=== PATIENT | female | born 1980 | race Caucasian/White ===

== ENCOUNTER 2025-04-05 18:03 | Emergency (ER) | payer OTHER, SELFPAY ==
--- OUTSIDE RECORDS SUMMARY | 2025-03-02 13:45 | XMS_ITS | Encounter Summary ---
Author Organization [facility] Address [address] [place] [address] Care Team Providers Care Web Operations Administrator Name Role Phone Marco Antonio Figueroa MD Unavailable Russ Gaitan DPM Unavailable [phone] Baldev Bell MD Unavailable [phone] Liz Hernandez DC Unavailable [phone] Lary Delvalle DO Primary Care Provider [phone] Nicolasa Hackett PA-C Unavailable [phone] Destiney Adam DO Unavailable Reason for Referral * Consult & Treatment (Routine) - Pending Review Specialty Diagnoses / Procedures Referred By Contkareem t Referred To Contact Diagnoses Acute pain of left knee Procedures DRAIN OR INJECT LARGE JOINT OR BURSA WOUT ULTRASOUND GUIDE Parmjit Kelly DO [address] [facility] [place] [address] Phone: tel: fax: Referral ID Status Reason Start Date Expiration Date V isits Requested Visits Authorized [id number] Pending Review 03/02/2025 03/02/2026 1 1 Reason for Visit * Reason Comments Surgical Followup Medial root repair. DOS 08/12 6.5 months out, still having a hard time with stairs. Average pain 3/10. Taking Aleve as needed. Encounter Details Date Type Department Care Team (Late st Contact Info) Description 03/02/2025 1:45 PM CDT Office Visit [facility] [address] [place] [phone] Parmjit Kelly, DO [address] [place] [address] Acute pain of left knee (Primary Dx); S/P arthroscopy of knee Social History Tobacco Use Types Packs/Day Years Used Date Smoking Tobacco: Never Passive Smoke Exposure: Never Smokeless Tobacco: Never Tobacco Cessation:Counseling Given: Not Answered Alcohol Use Standard Drinks/Week Comments Not Currently 0 (1 standard drink = 0.6 oz pur e alcohol) [facility] Utilities Answer Date Recorded In the past 12 months has [employer], gas, oil, or water [employer] threatened to shut off services in your home? No 12/14/2024 PHQ-2 Answer Date Recorded Initial depression screening score: 3 12/27/2024 Social Connections Answer Date Recorded How often do you see or talk to people that you care about and feel close to? (For example: talking to friends on the phone, visiting friends or family, going to judaism or club meetings) 5 or more times a week 06/20/2024 Alcohol Use Answer Date Recorded Audit C Total Score 1 12/12/2024 Financial Resource Strain Answer Date R ecorded In the past year, have you o r any family members you live with been unable to get any of the following when it was really needed? Check all that apply. None 06/20/2024 Food Insecurity Answer Date Recorded Within the past 12 months, y ou worried that your food would run out before you got money to buy more. Never true 12/14/2024 Within the past 12 months, t he food you bought just didn't last and you didn't have money to get more. Never true 12/14/2024 Inadequate Housing Answer Date Recorded What is your living situatio n today? I have a steady place to live 12/14/2024 Do you have problems with an y of the following? None of the above 12/14/2024 Interpersonal Safety Answer Date Record ed How often does anyone, himanshu lieberman family and friends, physically hurt you? Never 01/22/2025 How often does anyone, himanshu lieberman family and friends, insult or talk down to you? Never 01/22/2025 How often does anyone, himanshu lieberman family and friends, threaten you with harm? Never 01/22/2025 How often does anyone, himanshu lieberman family and friends, scream or curse at you? Never 01/22/2025 Transportation Needs Answer Date Record ed In the past 12 months, has l ack of reliable transportation kept you from medical appointments, meetings, work or from getting things needed for daily living? No 12/14/2024 Sexually Active Control Partners Comments Not Currently None Female Comments No Sex and Gender Information Value Date Recorded Sex Assigned at Not on file Legal Sex Female 1:30 PM CDT Gender Identity Not on file Sexual Orientation Not on file documented as of this encounter Last Filed Vital Signs Vital Sign Reading Time Taken Comments Blood Pressure - - Pulse - - Temperature 36.3 C (97.3 F) 03/02/2025 1:49 PM CDT Respiratory Rate - - Oxygen Saturation - - Inhaled Oxygen Concentration - - Weight 108.9 kg (240 lb) 03/02/2025 1:49 PM CDT Height 167.6 cm (5' 6) 03/02/2025 1:49 PM CDT Body Mass Index 38.74 03/02/2025 1:49 PM CDT documented in this encounter Functional Status * RETIRED Are you deaf or do you have serious difficulty hearing? Answer Date of Assessment Author No 06/12/2022 11:47 AM Bethany Morrison RN * RETIRED Are you blind or do you have serious difficulty seeing, even when wearing glasses? Answer Date of Assessment Author No 06/12/2022 11:47 AM Bethany Morrison RN * Do you have serious difficulty walking or climbing stairs? Answer Date of Assessment Author Yes 12/12/2024 6:41 AM CDT Susan Thomson RN * Do you have difficulty dressing or bathing? Answer Date of Assessment Author No 12/12/2024 6:41 AM CDT Susan Thomson RN * Because of a physical, mental, or emotional condition, do you have difficulty doing errands alone? Answer Date of Assessment Author No 12/12/2024 6:41 AM CDT Susan Thomson RN documented as of this encounter Mental Status * Because of a physical, mental, or emotional condition, do you have serious difficulty concentrating, remembering or making decisions? Answer Entry Date Author No 12/12/2024 6:41 AM CDT Susan Thomson RN documented in this encounter Patient Instructions * Patient Instructions* Kim Aiken - 03/02/2025 1:55 PM CDT INJECTION AFTERCARE INSTRUCTIONS: For any discomfort after today's injection, you can apply ice for 20 minutes. You can take over the counter analgesics as discussed. A small bruise or tenderness at the injection site can be normal for few days. Observe the injection site for swelling, redness, warmth, or signs of infection. If noted, please call [facility] at [phone]. For next few days - Avoid extra activity and aggressive exercise for the next few days. You may shower and bathe after the injection but avoid hot tubs and hensley water. Monitor your short and long-term relief with today's injection. documented in this encounter Progress Notes * Parmjit Kelly DO - 03/02/2025 1:45 PM CDT ORTHOPEDIC SURGERY Parmjit Kelly DO PRIMARY CARE PHYSICIAN: Lary Delvalle DO CHIEF COMPLAINT: Chief Complaint Patient presents with ??? Surgical Followup Medial root repair. DOS 08/12 6.5 months out, still having a hard time with stairs. Average pain 3/10. Taking Aleve as needed. HISTORY OF PRESENT ILLNESS: Ms. Haley is a 44 year old female who presents today for Surgical Followup (Medial root repair. DOS 08/12 6.5 months out, still having a hard time with stairs. Averagepain 3/10. Taking Aleve as needed. ) . REVIEW OF SYSTEMS: Constitutional: Patient denies fever, chills, tiredness or malaise. Respiratory: Denies cough or shortness of breath. Denies history of problems with intubation or anesthesia. Cardiovascular: Denies chest pain or edema. Musculoskeletal: Negative except for HPI. Past Medical History: Diagnosis Date ??? Allergy ??? Anxiety ??? Asthma (CMD) 2000 ??? Depressive disorder ??? Diabetes mellitus (CMD) ??? Hearing loss ??? Lumbar herniated disc ??? Migraines ??? Neuromuscular disorder (CMD) ??? Osteogenesis imperfecta type 4 (CMD) ??? Osteogenesis imperfecta type IV (CMD) ??? Osteoporosis 1981 ??? Sleep apnea 2018 ??? Vertigo Social History Socioeconomic History ??? Marital status: /Civil Union Spouse name: Not on file ??? Number of children: Not on file ??? Years of education: Not on file ??? Highest education level: Not on file Occupational History ??? Not on file Tobacco Use ??? Smoking status: Never Passive exposure: Never ??? Smokeless tobacco: Never Vaping Use ??? Vaping status: never used Substance and Sexual Activity ??? Alcohol use: Not Currently ??? Drug use: Never ??? Sexual activity: Not Currently Partners: Female control/protection: None Other Topics Concern ??? Not on file Social History Narrative ??? Not on file Social Drivers of Health Financial Resource Strain: Low Risk (06/20/2024) Financial Resource Strain ??? Unable to Get: None Recent Concern: Financial Resource Strain - Medium Risk (06/06/2024) Received from [facility] Overall Financial Resource Strain (CARDIA) ??? Difficulty of Paying Living Expenses: Somewhat hard Food Insecurity: Low Risk (12/14/2024) Food Insecurity ??? Worried about Food: Never true ??? Food is Gone: Never true Transportation Needs: Not At Risk (12/14/2024) Transportation Needs ??? Lack of Reliable Transportation: No Physical Activity: Insufficiently Active (06/06/2024) Received from [facility] Exercise Vital Sign ??? Days of Exercise per Week: 2 days ??? Minutes of Exercise per Session: 20 min Stress: Stress Concern Present (06/06/2024) Received from [facility] Occup[facility] - Occupational Stress Questionnaire ??? Feeling of Stress : Rather much Social Connections: Low Risk (06/20/2024) Social Connections ??? Social Connectivity: 5 or more times a week Feeling safe in your relationship: Low Risk (01/22/2025) Interpersonal Safety ??? How often physically hurt: Never ??? How often insulted or talked down to: Never ??? How often threatened with harm: Never ??? How often scream or curse at: Never Family History Problem Relation Age of Onset ??? Diabetes Mother ??? Heart disease Mother ??? Migraine Mother ??? Diabetes Father ??? Heart disease Father ??? Diabetes Maternal Grandmother ??? Heart disease Maternal Grandmother ??? Heart disease Maternal Grandfather ??? Cancer Paternal Grandmother ??? Cancer Paternal Grandfather lung cancer ??? Depression Mother ??? Early Father ??? Vision Loss Maternal Grandmother Macular Degeneration ??? Hearing Loss Maternal Grandfather Current Outpatient Medications Medication Sig ??? amitriptyline (ELAVIL) 25 MG tablet Take 1 tablet by mouth nightly. ??? ondansetron (ZOFRAN ODT) [address] 1 tablet onto the tongue every 6 hours. ??? amLODIPine (NORVASC) 5 MG tablet Take 1 tablet by mouth daily. ??? Aspirin 81 MG Cap Take 1 capsule by mouth daily. ??? atorvastatin (LIPITOR) 40 MG tablet Take 1 tablet by mouth nightly. ??? fluconazole (DIFLUCAN) 150 MG tablet One pill today and one in 3 days. #2 ??? prochlorperazine (COMPAZINE) [address] 1 suppository rectally every 12 hours as needed for Nausea. ??? predniSONE (DELTASONE) 20 MG tablet Take 1 tablet by mouth 2 times daily. (Patient not taking: Reported on 01/11/2025) ??? benzonatate (TESSALON PERLES) 200 MG capsule Take 1 capsule by mouth 3 times daily as needed for Cough. (Patient not taking: Reported on 01/11/2025) ??? MetFORMIN ER (GLUMETZA) 1000 MG modified release 24 hr tablet Take 1 tablet by mouth in the morning and 1 tablet in the evening. Take with meals. ??? Vitamin D, Ergocalciferol, 98130 units Cap Take 1 capsule by mouth 1 day a week. ??? lisinopril (ZESTRIL) 10 MG tablet Take 1 tablet daily around noon time. ??? ipratropium-albuterol (DUONEB) 0.5-2.5 (3) MG/3ML nebulizer solution Take 3 mLs by nebulizationevery 6 hours as needed for Wheezing. ??? fluticasone-salmeterol 250-50 MCG/ACT inhaler Inhale 1 puff into the lungs daily as needed (asthma). ??? gentamicin (GARAMYCIN) 0.3 % ophthalmic solution 2 drops affected eye(s) tid ??? albuterol 108 (90 Base) MCG/ACT inhaler Inhale 2 puffs into the lungs every 4 hours as needed for Shortness of Breath or Wheezing. ??? DULoxetine (CYMBALTA) 60 MG capsule Take 1 capsule by mouth in the morning and 1 capsule in theevening. ??? propRANolol (INDERAL) 10 MG tablet Take 1 tablet by mouth 2 times daily as needed (anxiety/panic). ??? propranolol (INDERAL LA) 120 MG 24 hr capsule Take 1 capsule by mouth nightly. ??? Insulin Pen Needle 31G X 5 MM Misc Use to inject insulin 1 time daily ??? empagliflozin (Jardiance) 10 MG tablet Take 1 tablet by mouth daily (before breakfast). ??? famotidine (PEPCID) 10 MG tablet Take 10 mg by mouth daily as needed (as needed). ??? Continuous Glucose Sensor (FreeStyle Obie 3 Plus Sensor) Misc Use as directed. Change every 14days. ??? ondansetron (ZOFRAN ODT) [address] 1 tablet onto the tongue every 6 hours as needed for Nausea. (Patient not taking: Reported on 01/11/2025) ??? lidocaine (LIDOCARE) 4 % patch Place 1 patch onto the skin daily. ??? ibuprofen (MOTRIN) 200 MG tablet Take 600-800 mg by mouth 2 times daily as needed for Pain. ??? Naphazoline-Pheniramine (VISINE OP) Place 1 drop into both eyes daily as needed (itchy, dry eye). ??? Continuous Glucose Sensor (FreeStyle Obie 2 Sensor) Misc Use to check blood sugars daily as directed. Change sensor every 14 days ??? insulin glargine 100 UNIT/ML pen-injector Inject 40 Units into the skin nightly. Prime 2 units before each dose. ??? rimegepant sulfate (Nurtec) 75 MG disintegrating tablet Take 1 tablet by mouth daily as needed for Migraine. Max 75 mg/24 hours. ??? fexofenadine (LAYNE) 180 MG tablet Take 180 mg by mouth daily. ??? fluticasone (FLONASE) 50 MCG/ACT nasal spray [place] 2 sprays in each nostril daily as needed (allergies). No current facility-administered medications for this visit. ALLERGIES: Allergen Reactions ??? Escitalopram ANAPHYLAXIS and RASH ??? Amoxicillin-Pot Clavulanate VOMITING and DIARRHEA ??? Sertraline Other (See Comments) ??? Cat Dander Other (See Comments) ??? Dog Dander Other (See Comments) ??? Seasonal Other (See Comments) PHYSICAL EXAMINATION: Visit Vitals Temp 97.3 ??F (36.3 ??C) (Temporal) Ht 5' 6 (1.676 m) Wt 108.9 kg (240 lb) LMP 12/25/2024 (Approximate) BMI 38.74 kg/m?? Examination of the left knee: Healed surgical incision. No cellulitis or drainage. Gross sensation intact distally. Palpable distal pulses. No subluxations or dislocations. Mild tenderness to palpation about the surgical site. Full range of motion of the surgical extremity. Weight bearing as tolerated. Quadriceps weakness. Medial jointline pain. Diagnosis: Status post Left knee arthroscopy medial meniscal root repair Quadriceps weakness Body mass index is 39.22 kg/m??. Obese (BMI 30-39 without a comorbid condition or 30-34 with a comorbid condition) Assessment: The patient is status post Left knee arthroscopy with medial meniscal root repair. The patient is having mild pain at this time. The incisions are healed well with no drainage and no signs or symptoms of infection. The patient was encouraged to work on range of motion. Weight bear as tolerated operative limb while wearing knee brace. A kenalog injection was given to the left knee at today's visit. If the injection does not provide intermodal dispatcher pain relief, we will repeat the MRI. Plan: -- Activity Modification--avoid excessive walking/impact activities. -- The patient was encouraged to work on range of motion, ice and elevation, and edema management. -- Patient advised to call with any questions or concerns. Toradol Injection Knee, left--the risks and benefits of a Toradol injection to the knee were explained to the patient. The patient expressed an understanding and wished to proceed with the injection.The knee was prepped with Betadine solution in the usual fashion. The injection site was then treated with ethyl chloride. A mixture of 2 cc of 1% lidocaine and 1 cc of toradol (30mg) was then injected into the knee. The signs and symptoms of an adverse reaction to the injection, including redness,swelling and other signs of infection were explained to the patient and instructions were given to call the office with any questions or concerns. All of the patient's questions were answered. On 03/02/2025, Kim Munoz scribed the services personally performed by Dr. Parmjit Kelly. Documentation recorded by the scribe accurately and completely reflects service(s) I personally performed and the decisions made by me. CC: Lary Delvalle DO 03/03/2025 9:23 AM documented in this encounter Plan of Treatment Upcoming Encounters Date Type Department Care Team (Late st Contact Info) Description 04/10/2025 8:15 AM CDT Lab Services [facility] - [facility] [address] [place] [address] [place] [address] 04/11/2025 11:20 AM CDT Office Visit Primary Care Virtual - Family Medicine [address] [place] [phone] [place] [address] [place] [address] 07/13/2025 2:45 PM OLIVER FILTER OPERATOR Office Visit [facility] [place] [address] [place] [id number] Jack Schuler DO [address] [place] [address] Scheduled Orders Name Type Priority Associated Diagnoses Orde r Schedule DRAIN OR INJECT LARGE JOINT OR BURSA WOUT ULTRASOUND GUIDE Procedures Routine Acute pain of left knee Ordered: 03/02/2025 documented as of this encounter Visit Diagnoses Diagnosis Acute pain of left knee- Primary S/P arthroscopy of knee Other postprocedural status documented in this encounter Administered Medications Inactive Administered Medications - up to 1 most recent administrations Medication Order MAR Action Action Date Dose Rate Site ketorolac (TORADOL) injection 30 mg 30 mg ONCE, Intra-articular, On Yelena 03/02/25 at 1415, For 1 dose, . * Protect from light *Indications:Acute pain of left knee Given 03/02/2025 2:01 PM CDT 30 mg Knee, Left documented in this encounter Orders Medications Ordered That Max ht Not Have Been Administered Count Last Ordered Date First Ordered Date ketorolac (TORADOL) injection 30 mg 1 03/02 documented in this encounter Additional Health Concerns Assessment Noted Time PHQ-9 Depression Total Score: 13 025 5:37 PM CDT A Body Mass Index follow-up plan has been documented for the patient 06/17/2023 10:39 AM OLIVER FILTER OPERATOR documented as of this encounter Care Teams Web Operations Administrator Relationship Specialty Start Date End Date Lary Delvalle DO [address] [facility] [address] [address] PCP - General Family Practice 09/06/24 Marco Antonio Figueroa MD [address] [place] [address] Referring Provider Neurology 04/22/22 Russ Gaitan DPM [address] [place] [address] Referring Provider Podiatry - Foot & Ankle Surgery 04/22/22 [place] [address] [place], [place] [id number] Referring Provider Orthopaedic Surgery- Adult Reconstructive Orthopaedic Surgery 04/22/22 [place] [address] [place] [address] Chiropractic 04/22/22 Nicolasa Hackett PA-C [facility] [id number] [place] [address] Referring Provider Physician Manager R D - Surgery 11/14/24 Destiney Adam DO [address] [facility] [place] [address] Orthopedic Surgery 11/14/24 documented as of this encounter
--- OUTSIDE RECORDS SUMMARY | 2025-03-02 14:15 | XMS_ITS | Encounter Summary ---
Author Organization [facility] Address [address] [place] [address] Care Team Providers Care Fried Cake Maker Name Role Phone Marco Antonio Figueroa MD Unavailable Russ Gaitan DPM Unavailable [phone] Baldev Bell MD Unavailable [phone] Liz Hernandez DC Unavailable [phone] Lary Delvalle DO Primary Care Provider [phone] Nicolasa Hackett PA-C Unavailable [phone] Destiney Adam DO Unavailable [phone] Encounter Details Date Type Department Care Team (Late st Contact Info) Description 03/02/2025 2:15 PM CDT Lab Services [facility] [place] [address] [address] Recurrent UTI (urinary tract infection) Social History Tobacco Use Types Packs/Day Years Used Date Smoking Tobacco: Never Passive Smoke Exposure: Never Smokeless Tobacco: Never Alcohol Use Standard Drinks/Week Comments Not Currently 0 (1 standard drink = 0.6 oz pur e alcohol) [facility] Utilities Answer Date Recorded In the past 12 months has e electric, gas, oil, or water company threatened to shut off services in your home? No 12/14/2024 PHQ-2 Answer Date Recorded Initial depression screening score: 3 12/27/2024 Social Connections Answer Date Recorded How often do you see or talk to people that you care about and feel close to? (For example: talking to friends on the phone, visiting friends or family, going to lutheran or club meetings) 5 or more times [...] on file documented as of this encounter Functional Status * RETIRED Are you deaf or do you have serious difficulty hearing? Answer Date of Assessment Author No 06/12/2022 11:47 AM Bethany Morrison RN * RETIRED Are you blind or do you have serious difficulty seeing, even when wearing glasses? Answer Date of Assessment Author No 06/12/2022 11:47 AM ACT TUTOR Bethany Ball RN * Do you have serious difficulty [...] Susan Thomson RN documented in this encounter Plan of Treatment Upcoming Encounters Date Type Department Care Team (Late st Contact Info) Description 04/10/2025 8:15 AM CDT Lab Services [facility] [place] [address] [place] [address] [place] [address] 04/11/2025 11:20 AM CDT [facility] [address] [place] [id number] [place] [address] [place] [address] 07/13/2025 2:45 PM ACT TUTOR Office Visit [facility] [address] [place] [phone] Jack Schuler DO [address] [place] [address] documented as of this encounter Procedures Procedure Name Priority Date/Time Associated Diagnosis Comments URINE, BACTERIAL CULTURE Routine 03/02/2025 2:16 PM CDT Recurrent UTI (urinary tract infection) documented in this encounter Results * (ABNORMAL) Urine, Bacterial Culture (03/02/2025 2:16 PM CDT) Urine, Bacterial Culture >100,000 CFU/mL Escherichia coli(A) DANIELLE 03/04/2025 5:05 PM CDT [facility] Urine URINE SPECIMEN OBTAINED BY CLEAN CATCH PROCEDURE / Unknown 03/02/2025 2:16 PM CDT 03/02/2025 2:16 PM CDT Narrative [facility] - 03/04/2025 5:05 PM CDT Testing on this culture has been completed. If additional testing is required, please contact [facility] Client Services within 48 hours. Organism Antibiotic Method Susceptibility Escherichia coli ESBL DANIELLE Negative ug/mL Escherichia coli Ampicillin DANIELLE 4 ug/mL: Susceptible Escherichia coli Ampicillin/Sulbactam DANIELLE <=2 ug/mL: Susceptible Escherichia coli Piperacillin/Tazobactam DANIELLE <=4 ug/mL: Susceptible Escherichia coli Cefazolin (Urine) DANIELLE <=1 ug/mL: Susceptible Comment:If susceptib le, cefazolin predicts activity for other oral cephalosporins (cefaclor, cefdinir, cefpodoxime, cefprozil, cefuroxime, cephalexin, and loracarbef) when used for uncomplicated UTIs due to E. coli, K. pneumo, and P. mirabilis. Escherichia coli Cefazolin DANIELLE <=1 ug/mL: Susceptible Comment:This cefazol in interpretation should be used when considering treatment for any infection other than an uncomplicated UTI. Escherichia coli Ceftriaxone DANIELLE <=0.25 ug/mL: Susceptible Escherichia coli Gentamicin DANIELLE <=1 ug/mL: Susceptible Escherichia coli Ciprofloxacin DANIELLE >=4 ug/mL: Resistant Escherichia coli Nitrofurantoin DANIELLE <=16 ug/mL: Susceptible Escherichia coli Trimethoprim/Sulfamethoxazole DANIELLE <=20 ug/mL: Susceptible us [facility] MICRO-GEN ORDERAB LES Final Result [place] [id number] [place] [id number] documented in this encounter Visit Diagnoses Diagnosis Recurrent UTI (urinary tract infection) Urinary tract infection, site not specified documented in this encounter Additional Health Concerns Assessment Noted Time PHQ-9 Depression Total Score: 13 025 5:37 PM CDT A Body Mass Index follow-up plan has been documented for the patient 06/17/2023 10:39 AM ACT TUTOR documented as of this encounter Care Teams Fried Cake Maker Relationship Specialty Start Date End Date Lary Delvalle DO [address] [place] [address] PCP - General Family Practice 09/06/24 Marco Antonio Figueroa MD [address] [place] [address] Referring Provider Neurology 04/22/22 Russ Gaitan DPM [address] [place] [address] Referring Provider Podiatry - Foot & Ankle Surgery 04/22/22 [place] [address] [place], [place] [id number] Referring Provider Orthopaedic Surgery- Adult Reconstructive Orthopaedic Surgery 04/22/22 [place] [address] [place], [place] [phone] Chiropractic 04/22/22 Nicolasa Hackett PA-C [facility] [id number] [place], [place] [phone] Referring Provider Physician Fleet Administrative Assistant - Surgery 11/14/24 Destiney Adam DO [address] [place] [address] Orthopedic Surgery 11/14/24 documented as of this encounter
--- OUTSIDE RECORDS SUMMARY | 2025-04-02 09:03 | XMS_ITS | Encounter Summary ---
Author Organization [facility] Address [address] [place] [address] Care Team Providers Care Cant Gang Sawyer Name Role Phone Marco Antonio Figueroa MD Unavailable Russ Gaitan DPM Unavailable [phone] Baldev Bell MD Unavailable [phone] Liz Hernandez DC Unavailable [phone] Lary Delvalle DO Primary Care Provider [phone] Nicolasa Hackett PA-C Unavailable [phone] Destiney Adam DO Unavailable [phone] Reason for Referral * Consult & Treatment (Routine) - Authorized Specialty Diagnoses / Procedures Referred By Contkareem t Referred To Contact Diagnoses Acute pain of right knee Hematoma of right lower leg Amrit Mercado MD [address] [place] [address] Phone: tel: fax: Referral ID Status Reason Start Date Expiration Date V isits Requested Visits Authorized [id number] Authorized 04/02/2025 04/02/2026 1 1 Question Answer service Consult Reason for Visit * Reason Comments Knee Pain Encounter Details Date Type Department Care Team ([facility] st Contact Info) Description 04/02/2025 9:03 AM CDT - 04/02/2025 12:09 PM CDT Emergency [facility] [place] [facility] [address] [place] [address] Amrit Mercado MD [address] [place] [address] Alyssia Mittal RN Acute pain of right knee (Primary Dx); Hematoma of right lower leg Discharge Disposition: Home or Self Care Social History Tobacco Use Types Packs/Day Years Used Date Smoking Tobacco: Never Passive Smoke Exposure: Never Smokeless Tobacco: Never Alcohol Use Standard Drinks/Week Comments Not Currently 0 (1 standard drink = 0.6 oz pur e alcohol) [facility] Utilities Answer Date Recorded In the past 12 months has untapt electric, gas, oil, or water company threatened to shut off services in your home? No 12/14/2024 PHQ-2 Answer Date Recorded Initial depression screening score: 3 12/27/2024 Social Connections Answer Date Recorded How often do you see or talk to people that you care about and feel close to? (For example: talking to friends on the phone, visiting friends or family, going to sikhism or club meetings) 5 or more times [...] Date Record ed How often does anyone, inclu ding family and friends, physically hurt you? Never [...] Sign Reading Time Taken Comments Blood Pressure 107/68 04/02/2025 11:30 AM CDT Pulse 70 04/02/2025 11:30 AM CDT Temperature 37.1 C (98.8 F) 04/02/2025 9:10 AM CDT Respiratory Rate 16 04/02/2025 11:3 0 AM CDT Oxygen Saturation 97% 04/02/2025 11: 30 AM CDT Inhaled Oxygen Concentration - - Weight 108.4 kg (238 lb 15.7 oz) 04/02/2025 9:10 AM CDT Height - - Body Mass Index 38.57 03/02/2025 1:49 PM CDT documented in this encounter Functional Status * RETIRED Are you deaf or do you have serious difficulty hearing? Answer Date of Assessment Author No 06/12/2022 11:47 AM Bethany Morrison, GINGER * RETIRED Are you blind or do [...] of Assessment Author No 12/12/2024 6:41 AM GUANAKOT Susan Thomson RN * Because of a physical, mental, or emotional condition, do you have difficulty doing errands alone? Answer Date of Assessment Author No 12/12/2024 6:41 AM Susan Gutierrez RN documented as of this encounter Mental Status * Question Answer Entry Date Author Orientation Oriented to person;Oriented to place;Oriented to time 04/02/2025 9:30 AM CDT Alyssia Mittal RN * Because of a physical, mental, or emotional condition, do you have serious difficulty concentrating, remembering or making decisions? Answer Entry Date Author No 12/12/2024 6:41 AM GUANAKOT Susan Thomson RN documented in this encounter Discharge Instructions * Attachments The following attachments cannot be sent through Care Everywhere. * Contusion, Lower Extremity (Vincentian) documented in this encounter Medications at Time of Discharge empagliflozin (Jardiance) 10 MG tablet Take 1 tablet by mouth daily (before breakfast). 90 tablet 3 03/25/2025 1:10 PM CDT 5 fluconazole (DIFLUCAN) 150 MG tabletIndications:V aginal yeast infection One pill today and one in 3 days if needed. #2 2 tablet 5 amitriptyline (ELAVIL) 25 MG tablet Take 1 tablet by mouth nightly. 90 tablet 1 01/23/2025 3:57 PM CDT 5 ondansetron (ZOFRAN ODT) [address] 1 tablet onto the tongue every 6 hours. 12 tablet 5 amLODIPine (NORVASC) 5 MG tablet Take 1 tablet by mouth daily. 90 tablet 1 5 Aspirin 81 MG Cap Take 1 capsule by mouth daily. 5 atorvastatin (LIPITOR) 40 MG tablet Take 1 tablet by mouth nightly. 90 tablet 1 5 prochlorperazine (COMPAZINE) [address] 1 suppository rectally every 12 hours as needed for Nausea. 6 suppository 5 predniSONE (DELTASONE) 20 MG tabletIndications:C ough, persistent Take 1 tablet by mouth 2 times daily. 10 tablet 12/02/2024 9:55 AM CDT 5 benzonatate (TESSALON PERLES) 200 MG capsuleIndications: Acute bacterial sinusitis Take 1 capsule by mouth 3 times daily as needed for Cough. 15 capsule 5 MetFORMIN ER (GLUMETZA) 1000 MG modified release 24 hr tabletIndications:T ype 2 diabetes mellitus with hyperglycemia, without long-term current use of insulin (CMD) Take 1 tablet by mouth in the morning and 1 tablet in the evening. Take with meals. 180 tablet 3 03/02/2025 2:30 PM CDT 5 Vitamin D, Ergocalciferol, 39082 units Cap Take 1 capsule by mouth 1 day a week. 12 capsule 1 11/29/2024 5:38 PM CDT 5 lisinopril (ZESTRIL) 10 MG tablet Take 1 tablet daily around noon time. 90 tablet 3 03/02/2025 2:30 PM CDT 5 ipratropium-albuter ol (DUONEB) 0.5-2.5 (3) MG/3ML nebulizer solution Take 3 mLs by nebulization every 6 hours as needed for Wheezing. 360 mL 12 11/15/2024 4:01 PM CDT 5 fluticasone-salmete rol 250-50 MCG/ACT inhaler Inhale 1 puff into the lungs daily as needed (asthma). 180 each 3 11/15/2024 4:01 PM CDT 5 gentamicin (GARAMYCIN) 0.3 % ophthalmic solutionIndications :Other mucopurulent conjunctivitis of left eye 2 drops affected eye(s) tid 5 mL 5 albuterol 108 (90 Base) MCG/ACT inhaler Inhale 2 puffs into the lungs every 4 hours as needed for Shortness of Breath or Wheezing. 8.5 g 3 12/21/2024 5:37 PM CDT 5 DULoxetine (CYMBALTA) 60 MG capsule Take 1 capsule by mouth in the morning and 1 capsule in the evening. 180 capsule 3 01/23/2025 3:57 PM CDT 5 propRANolol (INDERAL) 10 MG tablet Take 1 tablet by mouth 2 times daily as needed (anxiety/panic). 60 tablet 1 10/25/2024 11:35 AM CDT 5 propranolol (INDERAL LA) 120 MG 24 hr capsule Take 1 capsule by mouth nightly. 90 capsule 3 03/25/2025 1:10 PM CDT 5 Insulin Pen Needle 31G X 5 MM MiscIndications:Typ e 2 diabetes mellitus with hyperglycemia, without long-term current use of insulin (CMD) Use to inject insulin 1 time daily 100 each 3 03/25/2025 1:10 PM CDT 5 famotidine (PEPCID) 10 MG tablet Take 10 mg by mouth daily as needed (as needed). Continuous Glucose Sensor (FreeStyle Obie 3 Plus Sensor) MiscIndications:Typ e 2 diabetes mellitus with hyperglycemia, without long-term current use of insulin (CMD) Use as directed. Change every 15 days. 2 each 11 03/25/2025 1:10 PM CDT 5 ondansetron (ZOFRAN ODT) [address] 1 tablet onto the tongue every 6 hours as needed for Nausea. 10 tablet 07/05/2024 5:41 PM ZINC ETCHER 4 lidocaine (LIDOCARE) 4 % patch Place 1 patch onto the skin daily. 30 patch 4 ibuprofen (MOTRIN) 200 MG tablet Take 600-800 mg by mouth 2 times daily as needed for Pain. Naphazoline-Phenira mine (VISINE OP) Place 1 drop into both eyes daily as needed (itchy, dry eye). Continuous Glucose Sensor (FreeStyle Obie 2 Sensor) MiscIndications:Typ e 2 diabetes mellitus with hyperglycemia, without long-term current use of insulin (CMD) Use to check blood sugars daily as directed. Change sensor every 14 days 2 each 1 4 insulin glargine 100 UNIT/ML pen-injectorIndicat ions:Type 2 diabetes mellitus with hyperglycemia, without long-term current use of insulin (CMD) Inject 40 Units into the skin nightly. Prime 2 units before each dose. 15 mL 11 03/25/2025 1:10 PM CDT 4 rimegepant sulfate (Nurtec) 75 MG disintegrating tablet Take 1 tablet by mouth daily as needed for Migraine. Max 75 mg/24 hours. 18 tablet 3 2 fexofenadine (LAYNE) 180 MG tablet Take 180 mg by mouth daily. fluticasone (FLONASE) 50 MCG/ACT nasal spray Shobonier 2 sprays in each nostril daily as needed (allergies). documented as of this encounter Discharge Disposition Disposition Code Departure Means Destination Comment s [facility] or [facility] documented in this encounter ED Notes * Alyssia Mittal RN - 04/02/2025 12:01 PM CDT Dominguez wrap placed * Amrit Mercado MD - 04/02/2025 10:44 AM CDT ER Visit Patient: Kim Haley Age: [age] year old Sex: female History Arrival Mode Self History Limitation No limitations to communication Chief Complaint Knee Pain History of Present Illness Otherwise healthy 44-year-old female presenting with concerns of knee injury. Hyperextended knee while missing a step going down the stairs. Did not fall down the stairs. [place] an immediate pop and isnow feeling extreme pain in the back of her calf on the affected side. Health Status Medical History Problem List: 2024-11: Coronary artery disease involving [place] coronary artery of [place] heart without angina pectoris 2024-05: Acute midline low back pain with right-sided sciatica 2022-06: Migraine without aura and without status migrainosus, not intractable 2022-03: Vitamin D deficiency 2021-02: Chronic tension-type headache, intractable 2020-11: Anxiety 2020-11: Dyslipidemia (high LDL; low HDL) 2020-11: Environmental allergies 2020-11: Hand eczema 2020-11: Hearing loss 2020-11: Memory loss 2020-11: Numbness and tingling 2020-11: Allergic asthma (CMD) 2020-11: Lumbar herniated disc 2020-11: Osteogenesis imperfecta type IV (CMD) 2020-11: Dizziness 2019-11: Obstructive sleep apnea 2019-11: Diabetes mellitus, type 2 (CMD) 2019-11: Essential hypertension 2017-04: Family history of thyroid disorder 2017-04: Vitamin D deficiency 2015-10: Allergic rhinitis 2015-10: Anxiety and depression 2013-12: Right knee sprain 2013-12: Migraine with aura, without mention of intractable migraine without mention of status migrainosus 2013-12: Benign paroxysmal positional vertigo 2013-12: SPRAIN/STRAIN KNEE, RT - IND DOI 12/15/132013-12: STRAIN CALF, RT - IND DOI 12/15/132013-11: Right knee sprain 2013-11: Calf pain - Right Calf 2013-03: Generalized anxiety disorder Lumbar herniated disc Osteogenesis imperfecta type IV (CMD) Vertigo Migraines Medications Current Outpatient Medications Medication Instructions albuterol 108 (90 Base) MCG/ACT inhaler 2 puffs, Inhalation, EVERY 4 HOURS PRN amitriptyline (ELAVIL) 25 mg, Oral, NIGHTLY amLODIPine (NORVASC) 5 mg, Oral, DAILY Aspirin 81 MG Cap 1 capsule, Oral, DAILY atorvastatin (LIPITOR) 40 mg, Oral, NIGHTLY benzonatate (TESSALON PERLES) 200 mg, Oral, 3 TIMES DAILY PRN Continuous Glucose Sensor (FreeStyle Obie 2 Sensor) Misc Use to check blood sugars daily as directed. Change sensor every 14 days Continuous Glucose Sensor (FreeStyle Obie 3 Plus Sensor) Misc Use as directed. Change every 15 days. DULoxetine (CYMBALTA) 60 mg, Oral, 2 TIMES DAILY famotidine (PEPCID) 10 mg, DAILY PRN fexofenadine (LAYNE) 180 mg, DAILY fluconazole (DIFLUCAN) 150 MG tablet One pill today and one in 3 days if needed. #2 fluticasone (FLONASE) 50 MCG/ACT nasal spray 2 sprays, DAILY PRN fluticasone-salmeterol 250-50 MCG/ACT inhaler 1 puff, Inhalation, DAILY PRN gentamicin (GARAMYCIN) 0.3 % ophthalmic solution 2 drops affected eye(s) tid ibuprofen (MOTRIN) 600-800 mg, 2 TIMES DAILY PRN Insulin Pen Needle 31G X 5 MM Misc Use to inject insulin 1 time daily ipratropium-albuterol (DUONEB) 0.5-2.5 (3) MG/3ML nebulizer solution 3 mLs, Nebulization, EVERY 6 HOURS PRN Jardiance 10 mg, Oral, DAILY BEFORE BREAKFAST Lantus SoloStar 40 Units, Subcutaneous, NIGHTLY, Prime 2 units before each dose. lidocaine (LIDOCARE) 4 % patch 1 patch, Transdermal, DAILY lisinopril (ZESTRIL) 10 MG tablet Take 1 tablet daily around noon time. MetFORMIN ER (GLUMETZA) 1,000 mg, Oral, 2 TIMES DAILY WITH MEALS Naphazoline-Pheniramine (VISINE OP) 1 drop, DAILY PRN Nurtec 75 mg, Oral, DAILY PRN, Max 75 mg/24 hours. ondansetron (ZOFRAN ODT) 4 mg, Translingual, EVERY 6 HOURS PRN ondansetron (ZOFRAN ODT) 4 mg, Translingual, EVERY 6 HOURS predniSONE (DELTASONE) 20 mg, Oral, 2 TIMES DAILY prochlorperazine (COMPAZINE) 25 mg, Rectal, EVERY 12 HOURS PRN propranolol (INDERAL LA) 120 mg, Oral, NIGHTLY propRANolol (INDERAL) 10 mg, Oral, 2 TIMES DAILY PRN Vitamin D (Ergocalciferol) 1.25 mg, Oral, 1 DAY A WEEK Allergies ALLERGIES: Escitalopram, Amoxicillin-pot clavulanate, Sertraline, Cat dander, Dog dander, and Seasonal Family History Relevant family and social history has been mentioned in the HPI or was otherwise deemed not pertinent to today's reason for visit. Physical Exam Vital Signs Patient Vitals for the past 24 hrs: BP Temp Temp src Pulse Resp SpO2 Weight 04/02/25 1130 107/68 -- -- 70 16 97 % -- 04/02/25 1100 117/76 -- -- 72 16 97 % -- 04/02/25 1033 124/83 -- -- 71 16 97 % -- 04/02/25 0930 116/88 -- -- 77 -- 96 % -- 04/02/25 0910 (!) 141/77 98.8 ??F (37.1 ??C) Oral 80 16 97 % 108.4 kg (238 lb 15.7 oz) Physical Exam Physical Exam HENT: Head: Normocephalic. Cardiovascular: Pulses: Normal pulses. Pulmonary: Effort: Pulmonary effort is normal. No tachypnea or accessory muscle usage. Abdominal: General: There is no distension. Musculoskeletal: Comments: No obvious traumatic injury to right knee. Does have slightly diminished pulses although still palpable in the right foot. Skin: General: Skin is warm. Neurological: Mental Status: She is alert. Mental status is at baseline. Psychiatric: Behavior: Behavior is cooperative. Diagnostics & Procedures Labs Results for orders placed or performed during the hospital encounter of 04/02/25 Creatinine (POC) Specimen: Blood Result Value Ref Range CREATININE - POINT OF CARE 0.50 (L) 0.51 - 0.95 mg/dL GLOMERULAR FILTRATION RATE - POINT OF CARE >90 >=60 Radiology Results CTA ABDOMINAL AORTA ILIOFEMORAL BILATERAL RUNOFF Final Result IMPRESSION: 1. Right distal posterior hamstring hematoma without evidence of active extravasation. Patent RIGHT popliteal artery without evidence of dissection. 2. Patent distal aorta and BILATERAL iliac vasculature and SFA/popliteal with three-vessel runoff bilaterally. 3. Nonvascular: No actionable findings. FOLLOW-UP RECOMMENDATIONS: Per clinical team. Electronically Signed by: Raffy Funez MD Signed on: 04/02/2025 11:42 AM Created on Workstation ID: [id number] Signed on Workstation ID: [id number] Radiology Review: I have independently interpreted the CTA right lower extremity and have found hamstring hematoma. I am awaiting on the final radiology read. EKG and Procedures Procedures If performed, EKG documented independently in ED Course below Administered Medications Medications sodium chloride 0.9 % injector flush 50 mL (50 mLs Injection Given 04/02/2551) HYDROcodone-acetaminophen (NORCO) 5-325 MG per tablet 1 tablet (1 tablet Oral Given 04/02/2530) iohexol (OMNIPAQUE 350 INJECT) contrast solution 150 mL (150 mLs Intravenous Given 04/02/2551) Medical Decision Making ED Timeline MDM With concerns for true dislocation and reduction in the field, as well as possible decreased pulse on the right lower extremity, angiography was obtained showing no evidence of popliteal artery disruption. Did show hamstring hematoma which is a likely cause of her pain. No fractures or dislocationspresent currently. DC home with Ortho follow-up and care instructions for home Diagnostic Impression 1. Acute pain of right knee 2. Hematoma of right lower leg Disposition Discharge Signature Date Amrit Mercado MD 04/02/2025 Amrit Mercado MD 04/02/25 1157 * Alyssia Mittal, RN - 04/02/2025 9:08 AM CDT Pt was swinging a mesh laundry basket downstairs and hyper extended her right leg and heard a pop. This happened at about 830 this morning documented in this encounter Plan of Treatment Upcoming Encounters Date Type Department Care Team (Late st Contact Info) Description 04/10/2025 8:15 AM CDT Lab Services [facility] [address] [place] [address] [place] [address] 04/11/2025 11:20 AM CDT Office Visit Primary Care Virtual - Family Medicine [address] [place] [id number] [place] [address] [place] [address], [place] [id number] 07/13/2025 2:45 PM ZINC ETCHER Office Visit [facility] [address] [place] [id number] Jack Schuler DO [address] [place] [address] Scheduled Referrals Name Type Priority Associated Diagnoses Orde r Schedule SERVICE TO ORTHOPEDICS Referral Routine Acute pain of right knee Hematoma of right lower leg Ordered: 04/02/2025 documented as of this encounter Procedures Procedure Name Priority Date/Time Associated Diagnosis Comments CTA ABDOMINAL AORTA ILIOFEMORAL BILATERAL RUNOFF STAT 04/02/2025 9:59 AM CDT CREATININE - POINT OF CARE Routine 04/02/2025 9:37 AM CDT documented in this encounter Results * CTA ABDOMINAL AORTA ILIOFEMORAL BILATERAL RUNOFF (04/02/2025 9:59 AM CDT) Anatomical Region Laterality Modality Abdomen Bilateral Computed Tomogra phy 04/02/2025 11:3 7 AM CDT Impressions 04/02/2025 11:42 AM CDT IMPRESSION: 1. Right distal posterior hamstring hematoma without evidence of active extravasation. Patent RIGHT popliteal artery without evidence of dissection. 2. Patent distal aorta and BILATERAL iliac vasculature and SFA/popliteal with three-vessel runoff bilaterally. 3. Nonvascular: No actionable findings. FOLLOW-UP RECOMMENDATIONS: Per clinical team. Electronically Signed by: Raffy Funez MD Signed on: 04/02/2025 11:42 AM Created on Workstation ID: [id number] Signed on Workstation ID: [id number] Narrative 04/02/2025 11:42 AM CDT EXAM: CTA ABDOMINAL AORTA ILIOFEMORAL BILATERAL RUNOFF DATE: 04/02/2025 9:59 AM HISTORY: 44 years old Female with RIGHT knee injury concern for arterial injury. TECHNIQUE: Volumetric CT scanning of the abdomen, pelvis and both lower extremities was performed utilizing contrast. 3-D and multiplanar reconstructions on the 3D workstation. CT DOSE REDUCTION STATEMENT: All CT scans at this facility use dose modulation, automated exposure control, iterative reconstruction, and/or weight-based dosing when appropriate to reduce radiation dose to as low as reasonably achievable. Three-dimensional MIPS reformats were obtained by the technologist under supervision of a radiologist. CONTRAST: iohexol (OMNIPAQUE 350 INJECT) contrast solution 150 mL Intravenous. Given: 150 mL COMPARISON: November 2024 DETAILS: TERMINOLOGY: Mild, moderate and severe descriptors are used indicate a less than 50% stenosis, 50-70% stenosis and greater than 70% stenosis respectively. TECHNICAL LIMITATIONS: The study is tailored to image the arterial vasculature which may limit detection of other abnormalities. FINDINGS: ABDOMINAL VASCULATURE: Aorta: Patent. Normal caliber. RIGHT Renal Artery: Patent. LEFT Renal Artery: Patent. Visceral Arteries Celiac Patent. SMA Patent. DEBORAH Patent. Inferior vena cava and iliac veins: Within normal limits. RIGHT LOWER EXTREMITY: Common iliac artery: Patent. Internal iliac artery: Patent. External iliac artery: Patent. Common femoral artery: Patent. Profunda femoris artery: Patent. Superficial femoral artery: Patent. Popliteal artery: Patent. Anterior tibial artery: Patent. Tibial peroneal trunk: Patent. Peroneal artery: Patent. Posterior tibial artery: Patent. Venous: No significant varicosities. Musculoskeletal: Posterior distal hamstring hematoma. No evidence of active extravasation. LEFT LOWER EXTREMITY: Common iliac artery: Patent. Internal iliac artery: Patent. External iliac artery: Patent. Common femoral artery: Patent. Profunda femoris artery: Patent. Superficial femoral artery: Patent. Popliteal artery: Patent. Anterior tibial artery: Patent. Tibial peroneal trunk: Patent. Peroneal artery: Patent. Posterior tibial artery: Patent. Venous: No significant varicosities. Musculoskeletal: Within normal limits. ABDOMINAL VISCERA: Lower Chest: Imaged Portions Unremarkable. Liver: Imaged portions unremarkable. Gallbladder: Unremarkable. Spleen: Imaged portions unremarkable. Adrenal glands: Imaged portions unremarkable. Kidneys: Imaged portions unremarkable. Pancreas: Imaged portions unremarkable. Extrahepatic biliary tree: Imaged portions unremarkable. Retroperitoneal structures: No masses or adenopathy. Gastrointestinal tract: Grossly unremarkable. PELVIC VISCERA: No masses or adenopathy. MUSCULOSKELETAL: L3 sclerotic focus superior endplate, benign. OTHER FINDINGS: none. Procedure Note Raffy Funez MD - 04/02/2025 EXAM: CTA ABDOMINAL AORTA ILIOFEMORAL BILATERAL RUNOFF DATE: 04/02/2025 9:59 AM HISTORY: 44 years old Female with RIGHT knee injury concern forarterial injury. TECHNIQUE: Volumetric CT scanning of the abdomen, pelvis and both lower extremities was performed utilizing contrast. 3-D and multiplanar reconstructions on the 3D workstation. CT DOSE REDUCTION STATEMENT: All CT scans at this facility use dose modulation, automated exposure control, iterative reconstruction, and/or weight-based dosing when appropriate to reduce radiation dose to as low as reasonably achievable. Three-dimensional MIPS reformats were obtained by the technologistunder supervision of a radiologist. CONTRAST: iohexol (OMNIPAQUE 350 INJECT) contrast solution 150 mL Intravenous.Given: 150 mL COMPARISON: November 2024 DETAILS: TERMINOLOGY: Mild, moderate and severe descriptors are used indicate aless than 50% stenosis, 50-70% stenosis and greater than 70% stenosis respectively. TECHNICAL LIMITATIONS: The study is tailored to image the arterial vasculature which may limit detection of other abnormalities. FINDINGS: ABDOMINAL VASCULATURE: Aorta: Patent. Normal caliber. RIGHT Renal Artery: Patent. LEFT Renal Artery: Patent. Visceral Arteries Celiac Patent. SMA Patent. DEBORAH Patent. Inferior vena cava and iliac veins: Within normal limits. RIGHT LOWER EXTREMITY: Common iliac artery: Patent. Internal iliac artery: Patent. External iliac artery: Patent. Common femoral artery: Patent. Profunda femoris artery: Patent. Superficial femoral artery: Patent. Popliteal artery: Patent. Anterior tibial artery: Patent. Tibial peroneal trunk: Patent. Peroneal artery: Patent. Posterior tibial artery: Patent. Venous: No significant varicosities. Musculoskeletal: Posterior distal hamstring hematoma. No evidence ofactive extravasation. LEFT LOWER EXTREMITY: Common iliac artery: Patent. Internal iliac artery: Patent. External iliac artery: Patent. Common femoral artery: Patent. Profunda femoris artery: Patent. Superficial femoral artery: Patent. Popliteal artery: Patent. Anterior tibial artery: Patent. Tibial peroneal trunk: Patent. Peroneal artery: Patent. Posterior tibial artery: Patent. Venous: No significant varicosities. Musculoskeletal: Within normal limits. ABDOMINAL VISCERA: Lower Chest: Imaged Portions Unremarkable. Liver: Imaged portions unremarkable. Gallbladder: Unremarkable. Spleen: Imaged portions unremarkable. Adrenal glands: Imaged portions unremarkable. Kidneys: Imaged portions unremarkable. Pancreas: Imaged portions unremarkable. Extrahepatic biliary tree: Imaged portions unremarkable. Retroperitoneal structures: No masses or adenopathy. Gastrointestinal tract: Grossly unremarkable. PELVIC VISCERA: No masses or adenopathy. MUSCULOSKELETAL: L3 sclerotic focus superior endplate, benign. OTHER FINDINGS: none. IMPRESSION: 1. Right distal posterior hamstring hematoma without evidence of active extravasation. Patent RIGHT popliteal artery without evidence of dissection. 2. Patent distal aorta and BILATERAL iliac vasculature and SFA/popliteal with three-vessel runoff bilaterally. 3. Nonvascular: No actionable findings. FOLLOW-UP RECOMMENDATIONS: Per clinical team. Electronically Signed by: Raffy Funez MD Signed on: 04/02/2025 11:42 AM Created on Workstation ID: [id number] Signed on Workstation ID: [id number] Amrit Mercado MD IMG CT PROCEDURES Final R esult * (ABNORMAL) Creatinine (POC) (04/02/2025 9:37 AM CDT) CREATININE - POINT OF CARE 0.50(L) 0.51 - 0.95 mg/dL 04/02/2025 9:37 AM CDT [address] GLOMERULAR FILTRATION RATE - POINT OF CARE >90 >=60 04/02/2025 9:37 AM CDT [address] Comment:eGFR results = or >6 0 mL/min/1.73m2 = Normal kidney function. Estimated GFR calculated using the CKD-EPI-R (2020) equation that does not include race in the creatinine calculation. Blood 04/02/2025 9:37 AM CDT 04/02/2025 9:41 AM CDT us Amrit Mercado MD BKR LAB PT OF CARE TST [facility] Final Result [address] [place] [address] documented in this encounter Visit Diagnoses Diagnosis Acute pain of right knee- Primary Hematoma of right lower leg documented in this encounter Administered Medications Inactive Administered Medications - up to 1 most recent administrations Medication Order MAR Action Action Date Dose Rate Site HYDROcodone-acetaminophen (NORCO) 5-325 MG per tablet 1 tablet 1 tablet ONCE, Oral, On 04/02/25 at 0930, For 1 dose, Maximum of 4,000 mg acetaminophen per 24 hours from ALL sources. Given 04/02/2025 9:30 AM CDT 1 tablet iohexol (OMNIPAQUE 350 INJECT) contrast solution 150 mL 150 mL ONCE, Intravenous, On Thu04/02/25 at 1000, For 1 dose, * Note: Refrigerated product must be brought to room temp prior to administration * Given 04/02/2025 9:51 AM CDT 150 mLs sodium chloride 0.9 % injector flush 50 mL 50 mL PRN, Injection, Flush, Starting on 04/02/25 at 0957 Given 04/02/2025 9:51 AM CDT 50 mLs documented in this encounter Active and Recently Administered Medications Times are shown in CDT. Scheduled Medication Order 03/31/2025 04/01/2025 04/02/2025 HYDROcodone-acetaminophen (NORCO) 5-325 MG per tablet 1 tablet (COMPLETED) 1 tablet ONCE, Oral, On 04/02/25 at 0930, For 1 dose, Maximum of 4,000 mg acetaminophen per 24 hours from ALL sources. 0930 (Given - Provid er: Alyssia Chowdhury RN) iohexol (OMNIPAQUE 350 INJECT) contrast solution 150 mL (COMPLETED) 150 mL ONCE, Intravenous, On 04/02/25 at 1000, For 1 dose, * Note: Refrigerated product must be brought to room temp prior to administration * 0951 (Given - Provid er: Luzma Horton) PRN Medication Order 03/31/2025 04/01/2025 04/02/2025 sodium chloride 0.9 % injector flush 50 mL 50 mL PRN, Injection, Flush, Starting on 04/02/25 at 0957 0951 (Given - Provid er: Luzma Horton) documented in this encounter Additional Health Concerns Assessment Noted Time PHQ-9 Depression Total Score: 13 025 5:37 PM CDT A Body Mass Index follow-up plan has been documented for the patient 06/17/2023 10:39 AM ZINC ETCHER documented as of this encounter Care Teams Cant Gang Sawyer Relationship Specialty Start Date End Date Lary Delvalle DO [address] [facility] [address] [address] PCP - General Family Practice 09/06/24 Marco Antonio Figueroa MD [address] [place] [address] Referring Provider Neurology 04/22/22 Russ Gaitan DPM [address] [place] [address] Referring Provider Podiatry - Foot & Ankle Surgery 04/22/22 [place] [address] [place] [address] Referring Provider Orthopaedic Surgery- Adult Reconstructive Orthopaedic Surgery 04/22/22 [place] [address] [place] [address] Chiropractic 04/22/22 Nicolasa Hackett PA-C [facility] [id number] [place] [address] Referring Provider Physician Senior Master Scheduler - Surgery 11/14/24 Destiney Adam DO [address] [facility] [place] [address] Orthopedic Surgery 11/14/24 documented as of this encounter
[2025-04-05 18:14] VITALS: BP 118/74; PULSE 83; RESP 20; TEMP 36.2; O2SAT 96; BMI 39.4
--- NOTE | 2025-04-05 18:34 | ED.GENADULT ---
HPI - General Adult General Chief complaint: Extremity Pain/Injury, Lower Stated complaint: R leg injury Time Seen by Provider: 04/05/25 18:07 Source: patient Mode of arrival: ambulatory Limitations: no limitations History of Present Illness HPI narrative: 44-year-old female with history of diabetes, obesity, hypertension, hyperlipidemia, presenting with leg pain. Patient states that on Thursday, 3 days ago, she hyperextended her knee while doing laundry. She felt a snap and fell to the ground with immediate pain. She did go to the [facility] on that day where she states the CT scan was done. She says that she was told that there was no arterial damage but she did have a large hematoma present on the posterior thigh. Today she stated that her leg feels like it is on pins and needles from the mid thigh all the way down. Feels numb and tingly. No significant pain. No pallor. Related Data Home Medications ?Medication ?Instructions ?Recorded ?Confirmed amlodipine 5 mg tablet 5 mg PO DAILY 04/05/25 04/05/25 aspirin 81 mg tablet,delayed 81 mg PO DAILY 04/05/25 04/05/25 release (Adult Aspirin Regimen) atorvastatin 40 mg tablet 40 mg PO DAILY 04/05/25 04/05/25 duloxetine 40 mg capsule,delayed 40 mg PO DAILY 04/05/25 04/05/25 release empagliflozin 10 mg tablet 10 mg PO DAILY 04/05/25 04/05/25 (Jardiance) fexofenadine 60 mg tablet (Isamar 60 mg PO BID 04/05/25 04/05/25 Allergy) insulin glargine 100 unit/mL 20 unit subcut QPM 04/05/25 04/05/25 subcutaneous solution (Lantus U-100 Insulin) lisinopril 10 mg tablet 10 mg PO DAILY 04/05/25 04/05/25 metformin 1,000 mg tablet 1,000 mg PO BID 04/05/25 04/05/25 propranolol 120 mg 120 mg PO DAILY 04/05/25 04/05/25 capsule,extended release 24 hr rimegepant 75 mg disintegrating 75 mg PO Q48H 04/05/25 04/05/25 tablet (Nurtec ODT) Allergies Allergy/AdvReac Type Severity Reaction Status Date / Time escitalopram Allergy Intermediate Anaphylaxis Verified 04/05/25 18:10 amoxicillin (From Augmentin) AdvReac Gastrointestinal Verified 04/05/25 18:10 Upset clavulanic acid (From AdvReac Gastrointestinal Verified 04/05/25 18:10 Augmentin) Upset Review of Systems Status of ROS: Reports: 6 or more systems reviewed and unremarkable except as noted in History and below Exam Narrative: Exam Narrative: Obese, well-developed patient in no acute distress. Alert and oriented. Answers questions appropriately. Mood and affect are appropriate. Thoughts are goal oriented and rational. No tangential or magical thinking noted. Patient speaks in full sentences without needing to catch her breath. HEENT: Normocephalic atraumatic. Pupils are equally round reactive to light. Extraocular muscles are intact. Conjunctivae are moist without any icterus noted. Moist mucous membranes. Extremities: Bilateral lower extremities are without edema. Normal DP and PT pulses. Right lower extremity has no pallor, has normal capillary refill. She has a large ecchymosis of the posterior distal thigh. She has no tenderness of the anterior knee. She has good strength with flexion at the knee against resistance. This does not cause significant pain. She has normal strength at the ankle, no foot drop is present. She has mild pain of the anterior mo. Skin: Well perfused. Const: Vital Signs, click to edit/add: Vital Signs - 24 hr 04/05/25 18:14 Temperature 97.1 F L Pulse Rate [Pulse Oximeter] 83 Respiratory Rate 20 Blood Pressure [Ri ght Upper Arm] 118/74 Pulse Oximetry 96 Oxygen Delivery Me thod Room Air Course Course ED Course: Discussed patient with galindo Cotton, who recommends follow-up in the clinic tomorrow. Vital Signs Vital signs: Initial Vital Signs Temperature 97.1 F L 04/05/25 18:14 Temperature Source Temporal Artery Scan 04/05/25 18:14 Pulse Rate 83 04/05/25 18:14 Respiratory Rate 20 04/05/25 18:14 Blood Pressure 118/74 04/05/25 18:14 Blood Pressure Mean 88 04/05/25 18:14 Pulse Oximetry 96 04/05/25 18:14 Oxygen Delivery Method Room Air 04/05/25 18:14 Vital Signs Temperature 97.1 F L 04/05/25 18:14 Pulse Rate 83 04/05/25 18:14 Respiratory Rate 20 04/05/25 18:14 Blood Pressure 118/74 04/05/25 18:14 Pulse Oximetry 96 04/05/25 18:14 Oxygen Delivery Method Room Air 04/05/25 18:14 Temperature 97.1 F L 04/05/25 18:14 Pulse Rate 83 04/05/25 18:14 Respiratory Rate 20 04/05/25 18:14 Blood Pressure 118/74 04/05/25 18:14 Pulse Oximetry 96 04/05/25 18:14 Oxygen Delivery Method Room Air 04/05/25 18:14 Medical Decision Making MDM Narrative Medical decision making narrative: 44-year-old female with numbness of the lower extremity like secondary to peroneal nerve injury or pressure on the nerve from the hematoma. Patient will follow-up with orthopedics in the clinic tomorrow. Discharge Plan Discharge Clinical Impression: Numbness and tingling of leg Patient Disposition: Home, Self-Care Condition: Stable Additional Instructions: You will be given information to call the orthopedic clinic 1st thing in the morning to set up a follow-up appointment for tomorrow. If you have any difficulty getting an appointment for tomorrow, call to the emergency department and we can assist you. Prescriptions: No Action fexofenadine [Isamar Allergy] 60 mg tablet 60 mg PO BID insulin glargine [Lantus U-100 Insulin] 100 unit/mL solution 20 unit subcut QPM amlodipine 5 mg tablet 5 mg PO DAILY aspirin [Adult Aspirin Regimen] 81 mg tablet,delayed release (DR/EC) 81 mg PO DAILY metformin 1,000 mg tablet 1,000 mg PO BID propranolol 120 mg capsule,extended release 24hr 120 mg PO DAILY Jardiance 10 mg tablet 10 mg PO DAILY Nurtec ODT 75 mg tablet,disintegrating 75 mg PO Q48H duloxetine 40 mg capsule,delayed release(DR/EC) 40 mg PO DAILY lisinopril 10 mg tablet 10 mg PO DAILY atorvastatin 40 mg tablet 40 mg PO DAILY Stand Alone Forms: Appscend Info Instructions
--- OUTSIDE RECORDS SUMMARY | 2025-04-05 19:16 | XMS_ITS | Clinical Summary ---
Author Organization [facility] Address [address] [place] [address] Care Team Providers Care Sales Support Technician Name Role Phone Pcp, None Primary Care Provider Unavailabl e Allergies Active Allergy Reactions Criticality Noted Date Comments Amoxicillin-Pot Clavulanate GI - diarrhea,GI - nausea and/or vomiting,SKIN - rash Medium 08/15/2022 Cat Hair Extract OTHER (explain in comments) 04/11/2014 Dogs OTHER (explain in comments) 04/11/2014 Dust Mite Extract OTHER (explain in comments) Medium 06/27/2010 Asthma Attack Escitalopram CV - anaphylaxis,SKI N - rash High 07/15/2019 Seasonal OTHER (explain in comments) Medium 04/11/2014 Asthma Attack Sertraline NEURO/PSYCH - agitation Medium 07/27/2018 Medications albuterol HFA 108 (90 Base) MCG/ACT inhaler 2 puffs as needed Ac tive amitriptyline (ELAVIL) 50 MG tablet Take 50 mg by mouth. 02/15/20 21 Active atorvastatin (LIPITOR) 20 MG tablet daily with food. 09/26/19 21 Active butalbital/acetami nophen/caffeine (FIORICET) 50-325-40 MG tablet Take 1 tablet by mouth every 4 hours as needed. 02/26/20 21 Active clobetasol propionate (CLOBEVATE OR TEMOVATE) 0.05 % cream 2 times daily after meals. Active ergocalciferol (VITAMIN D) 90726 units capsule TAKE 1 CAPSULE BY MOUTH EVERY WEEK 11/17/19 21 Active fluticasone propionate (FLONASE) 50 mcg/act nasal spray Instill 2 sprays. Ac tive fexofenadine (LAYNE) 180 MG tablet daily with food. Act josemanuel fluticasone/salmet bandar (ADVAIR DISKUS OR WIXELA INHUB) 250-50 mcg/dose inhaler 2 times daily after meals. Active hydrocodone/acetam inophen (NORCO) 5-325 MG tablet 02/26/20 Active lidocaine (LIDODERM) 5 % patch Apply 1 Patch topically daily with food. 12/30/19 Active lisinopril (PRINIVIL OR ZESTRIL) 20 MG tablet Take 10 mg by mouth daily with food. 05/30/20 Active metFORMIN (GLUCOPHAGE) 500 MG tablet daily with food. 09/26/19 Active PARoxetine (PAXIL) 20 MG tablet TAKE 1 TABLET BY MOUTH EVERY DAY IN THE MORNING 09/26/19 21 Active OZEMPIC, 0.25 OR 0.5 MG/DOSE, 2 MG/1.5ML pen-injector INJECT 0.5MG SUBCUTANEOUSLY ONCE EVERY 7 DAYS 02/13/20 21 Active tiZANidine (ZANAFLEX) 4 MG tablet Take 4 mg by mouth every 8 hours as needed. 01/19/20 Active cephALEXin (KEFLEX) 500 MG capsule TAKE 1 CAPSULE BY MOUTH FOUR TIMES DAILY FOR 10 DAYS 10/18/19 22 Active amLODIPine (NORVASC) 5 MG tablet Take 1 tablet by mouth daily. 12/09/19 24 Active Continuous Glucose Sensor (FREESTYLE LUIS 2 SENSOR) [facility] Use to check blood sugars daily as directed. Change sensor every 14 days 05/30/20 24 Active DULoxetine HCl (CYMBALTA) 60 MG delayed release capsule Take 1 capsule by mouth daily. 02/05/20 24 Active empagliflozin (JARDIANCE) 10 mg tablet Take 1 tablet by mouth every morning before breakfast. 05/03/20 24 Active ibuprofen (MOTRIN) 200 MG tablet Take 600-800 mg by mouth twice daily as needed. Active insulin glargine (LANTUS OR BASAGLAR OR SEMGLEE) 100 UNIT/ML pen-injector Inject 40 Units subcutaneously. 05/03/20 24 Active ondansetron ODT (ZOFRAN ODT) [address] 4 mg under the tongue every 6 hours as needed. 07/03/20 24 Active propranolol HCl (INDERAL LA) 80 MG extended release capsule Take 1 capsule by mouth daily. 01/16/20 24 Active rimegepant (NURTEC) [address] 75 mg on tongue and allow to dissolve nightly as needed. 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 Paresthesia 12/05/2020 Obstructive sleep apnea 12/02/2019 Diabetes mellitus, type 2 11/25/2019 Essential hypertension 11/25/2019 Family history of thyroid disorder 05/07/2017 Vitamin D deficiency 05/07/2017 Allergic rhinitis 11/22/2015 Migraine with aura 01/02/2014 Generalized anxiety disorder 04/14/2013 Dyslipidemia, goal LDL below 100 04/22/2012 Pre-diabetes 04/22/2012 Obesity 02/12/2011 Immunizations Immunization Administration Dates Next Due Influenza 05/23/2019,05/20/1996,06/22/1995 Moderna (MARBLE SUPERVISOR, light blue label) COVID-19 100 mcg/0.5 mL or 50 mcg/0.25 mL dose Vaccine, mRNA, spike protein, LNP, preservative free 11/02/2020,10/05/2020 Td (Adult) Vaccine 01/08/1996 Tdap (ADACEL or BOOSTRIX) - Tetanus/reduced Diptheria/Acellular Pertussis, > 7 years, adsorbed vaccine 06/01/2019,09/28/2012,12/14/2007 Social History Tobacco Use Types Packs/Day Years Used Date Smoking Tobacco: Never Smokeless Tobacco: Never Tobacco Cessation:Counseling Given: No Social Connections Answer Date Recorded How often do you feel lonely or isolated from those around you? Not on file 03/20/2024 Social Connections: Recent Result Not on file 03/20/2024 Personal Safety Answer Date Recorded Personal Safety: Recent Result Not on file 0 02/04/2024 Personal Safety Risk Score Not on file 02/03 Digital Skills Answer Date Recorded How comfortable are you usin g technology to manage your health care online? For example, using patient online services to schedule appointments, check for test results, or send a message to your provider? Not on file 05/01/2024 How often does someone help you access [employer] e online? Not on file 05/01/2024 What makes it difficult for you to use online information to manage your health care? Not on file 05/01/2024 Inadequate Housing Answer Date Recorded Do you have problems with any of the following? Not on file 03/13/2024 Inadequate Housing: Recent Result Not on file 03/13/2024 Internet Answer Date Recorded Which of the following devic es do you use or have access to regularly (at least once a month)? Not on file 05/01/2024 Which type of Internet conne ction do you have for personal use at home or in public places (not including work)? Not on file 05/01/2024 Comments Unknown Sex and Gender Information Value Date Recorded Sex Assigned at Not on file Legal Sex Female 2:01 PM RAND BUTTING MACHINE OPERATOR Gender Identity Not on file Sexual Orientation Not on file Last Filed Vital Signs Vital Sign Reading Time Taken Comments Blood Pressure 140/89 08/31/2024 9:20 AM RAND BUTTING MACHINE OPERATOR Pulse 79 08/31/2024 9:20 AM RAND BUTTING MACHINE OPERATOR Temperature 36.2 C (97.2 F) 08/17/2024 10:00 AM RAND BUTTING MACHINE OPERATOR Respiratory Rate - - Oxygen Saturation 97% 08/17/2024 10:30 AM RAND BUTTING MACHINE OPERATOR Inhaled Oxygen Concentration - - Weight 108.9 kg (240 lb) 07/13/2024 10:48 AM RAND BUTTING MACHINE OPERATOR Height 167.6 cm (5' 6) 07/13/2024 10:48 AM RAND BUTTING MACHINE OPERATOR Body Mass Index 38.74 07/13/2024 10:48 AM RAND BUTTING MACHINE OPERATOR Plan of Treatment Health Maintenance Due Date Last Done Comments HIV Screening 1980 Lipid Panel 1980 Depression Screening 1992 Hepatitis C Screening 1998 Pap Smear 1998 Hepatitis B Vaccines (1 of 3 - 19+ 3-dose series) 1999 HPV Immunization (1 - 3-dose SCDM series) 2007 Cervical Cancer Screening 2010 HPV w/Reflex to Pap 2010 Diabetes Monitoring Creatinine 02/28/2021 Diabetes Monitoring Eye Exam 02/28/2021 Diabetes Monitoring Hemoglobin A1c 02/28/2021 Diabetes Monitoring Urine Microalbumin 02/28/2021 Breast Cancer Screening (Mammogram) 05/27/2023 05/27/2022, 05/27/2022 COVID-19 Vaccine ( season) 2025 06/17/2023, 06/05/2022, 07/30/2021, Additional history exists Seasonal Flu Immunization (#1) 03/27/2025 06/20/2024, 06/17/2023, 07/02/2022, Additional history exists Bone Density Monitoring 2025 Routine Physical 06/17/2025 06/17/2023, , 02/25/2021, Additional history exists DTaP/Tdap/Td Vaccines (5 - Td or Tdap) 06/01/2029 06/01/2019, 09/28/2012, 12/14/2007, Additional history exists Pneumococcal Vaccine:0-5 years or At-Risk Completed 12/16/2023 HIB Vaccines Aged Out No longer eligi ble based on patient's age to complete this topic Hepatitis A Vaccines Aged Out No long er eligible based on patient's age to complete this topic Meningococcal B Vaccine Aged Out No l onger eligible based on patient's age to complete this topic Meningococcal Vaccine Aged Out No kelvin eulogio eligible based on patient's age to complete this topic RSV Immunization <20 Months Aged Out No longer eligible based on patient's age to complete this topic Rotavirus Vaccines Aged Out No longer eligible based on patient's age to complete this topic Insurance ANTH Care Teams Sales Support Technician Relationship Specialty Start Date End Date Pcp, None PCP - General Internal Medicine 09/26/21
--- OUTSIDE RECORDS SUMMARY | 2025-04-05 19:16 | XMS_ITS | Encounter Summary ---
Author Organization [facility] Address [address] [place] [address] Care Team Providers Care Foreman/Pile Driving And Erection Name Role Phone Marco Antonio Figueroa MD Unavailable Russ Gaitan DPM Unavailable [phone] Baldev Bell MD Unavailable [phone] Liz Hernandez DC Unavailable [phone] Lary Delvalle DO Primary Care Provider [phone] Nicolasa Hackett PA-C Unavailable [phone] Destiney Adam DO Unavailable [phone] Encounter Details Date Type Department Care Team (Late st Contact Info) Description 02/24/2025 E-Advice Primary Care [facility] - Family Medicine [address] [place] [address] [place] [address] [place] [address] Yeast Infection Social History Tobacco Use Types Packs/Day Years Used Date Smoking Tobacco: Never Passive Smoke Exposure: Never Smokeless Tobacco: Never Alcohol Use Standard Drinks/Week Comments Not Currently 0 (1 standard drink = 0.6 oz pur e alcohol) [facility] Utilities Answer Date Recorded In the past 12 months has e [employer], gas, oil, or water [employer] threatened to shut off services in your home? No 12/14/2024 PHQ-2 Answer Date Recorded Initial depression screening score: 3 12/27/2024 Social Connections Answer Date Recorded How often do you see or talk to people that you care about and feel close to? (For example: talking to friends on the phone, visiting friends or family, going to anglican or club meetings) 5 or more times [...] of Assessment Author No 06/12/2022 11:47 AM MANUFACTURING ENGINEERING TECHNICIAN Bethany Ball, GINGER * RETIRED Are you blind or do you have serious difficulty seeing, even when wearing glasses? Answer Date of Assessment Author No 06/12/2022 11:47 AM MANUFACTURING ENGINEERING TECHNICIAN Bethany Ball RN * Do you have serious difficulty walking or climbing stairs? Answer Date of Assessment Author Yes 12/12/2024 6:41 AM CDSusan Pak RN * Do you have difficulty dressing or bathing? Answer Date of Assessment Author No 12/12/2024 6:41 AM Susan Gutierrez RN * Because of a physical, mental, or emotional condition, do you have difficulty doing errands alone? Answer Date of Assessment Author No 12/12/2024 6:41 AM Susan Gutierrez RN documented as of this encounter Mental Status * Because of a physical, mental, or emotional condition, do you have serious difficulty concentrating, remembering or making decisions? Answer Entry Date Author No 12/12/2024 6:41 AM Susan Gutierrez RN documented in this encounter Plan of Treatment Upcoming Encounters Date Type Department Care Team (Late st Contact Info) Description 04/10/2025 8:15 AM CDT Lab Services [facility] [address] [place] [address] [place] [address] 04/11/2025 11:20 AM CDT Office Visit Primary Care [facility] - Family Medicine [address] [place] [id number] [place] [address] [place] [address] 07/13/2025 2:45 PM MANUFACTURING ENGINEERING TECHNICIAN Office Visit [facility] [address] [place] [id number] Jack Schuler DO [address] [place] [address] documented as of this encounter Visit Diagnoses Not on filedocumented in this encounter Additional Health Concerns Assessment Noted Time PHQ-9 Depression Total Score: 13 025 5:37 PM CDT A Body Mass Index follow-up plan has been documented for the patient 06/17/2023 10:39 AM MANUFACTURING ENGINEERING TECHNICIAN documented as of this encounter Care Teams Foreman/Pile Driving And Erection Relationship Specialty Start Date End Date Lary Delvalle DO [address] [place] [address] PCP - General Family Practice 09/06/24 Marco Antonio Figueroa MD [address] [place], [place] [id number] Referring Provider Neurology 04/22/22 Russ Gaitan DPM [address] [place] [address] Referring Provider Podiatry - Foot & Ankle Surgery 04/22/22 [place] [address] [place], [place] [id number] Referring Provider Orthopaedic Surgery- Adult Reconstructive Orthopaedic Surgery 04/22/22 [place] [address] [address] [place], [place] [id number] Chiropractic 04/22/22 Nicolasa Hackett PA-C [facility] [id number] [place] [address] Referring Provider Physician Weigher Bulker - Surgery 11/14/24 Destiney Adam DO [address] [place] [address] Orthopedic Surgery 11/14/24 documented as of this encounter
--- OUTSIDE RECORDS SUMMARY | 2025-04-05 19:16 | XMS_ITS | Encounter Summary ---
Author Organization [facility] Address [address] [place] [address] Care Team Providers Care Transit Police Officer Name Role Phone Cheryl Tariq-LOADING RACK SUPERVISOR Primary Care Provider [phone] Cheryl Tariq APNP-LOADING RACK SUPERVISOR Unavailable [phone] Cheryl Tariq APNP-LOADING RACK SUPERVISOR Unavailable [phone] Lary Delvalle DO Primary Care Provider [phone] Reason for Visit * Reason Onset Date Comments Med Question 12/07/2020 Encounter Details Date Type Department Care Team (Late st Contact Info) Description 12/07/2020 Telephone [facility] at Work [address] [place] [phone] Cheryl Tariq APNP-LOADING RACK SUPERVISOR [address] [place] [address] Med Question Social History Tobacco Use Types Packs/Day Years Used Date Smoking Tobacco: Never Smokeless Tobacco: Never Alcohol Use Standard Drinks/Week Comments Yes 3 (1 standard drink = 0.6 oz pur e alcohol) monthly Comments Unknown Sex and Gender Information Value Date Recorded Sex Assigned at Not on file Legal Sex Female 4:03 AM CDT Gender Identity Not on file Sexual Orientation Not on file documented as of this encounter Miscellaneous Notes * Telephone Encounter - Pricila Gonzalez PA - 12/07/2020 12:16 PM CDT I thought Miriam had already corrected this with the pharmacy? * Telephone Encounter - Cheryl Tariq APNP-CNP - 12/07/2020 12:14 PM CDT It looks like you saw her for the Flagyl. * Telephone Encounter - Zuri Sneed - 12/07/2020 12:01 PM CDT And the medication for metronidazole I guess was given for 14 tablets but needs 30 for 3 times daily for 10 days. Did you want me to correct this? * Telephone Encounter - Lisa Felix - 12/07/2020 11:46 AM CDT Pharm sent message 12/05/20 regarding Metronidazole prescription but have not heard back. They are questioning directions, said 1 tablet by mouth 3 times daily for 10 days but was only give 14 tablets. Please call. 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 documented as of this encounter Care Teams Transit Police Officer Relationship Specialty Start Date End Date Cheryl Tariq APNP-CNP PCP - General Nurse Practitioner Occupational Health 05/28/20 05/16/22 Cheryl Tariq APNP-CNP [address] [place] [address] [place] [address] PCP - Attributed-[employer] 08/27/20 01/09/22 Cheryl Tariq APNP-LOADING RACK SUPERVISOR [address] [place] [address] [place] [address] PCP - Attributed-[place] [employer] 05/27/21 03/13/23 Lary Delvalle DO [address] [place] [address] PCP - General Family Medicine 05/17/22 documented as of this encounter
--- OUTSIDE RECORDS SUMMARY | 2025-04-05 19:16 | XMS_ITS | Encounter Summary ---
Author Organization [facility] Address [address] [place] [address] Care Team Providers Care Palliative Care Physician Name Role Phone Marco Antonio Figueroa MD Unavailable Russ Gaitan DPM Unavailable [phone] Baldev Bell MD Unavailable [phone] Liz Hernandez DC Unavailable [phone] Lary Delvalle DO Primary Care Provider [phone] Nicolasa Hackett PA-C Unavailable [phone] Destiney Adam DO Unavailable [phone] Reason for Visit * Reason Comments Orders Only C. Diff and WBC Stoo l orders were canceled due to specimen not being in liquid form. Encounter Details Date Type Department Care Team (Late st Contact Info) Description 01/23/2025 Telephone Primary Care [facility] - Family Medicine [address] [place] [address] [place] [address] [place] [address] Orders Only (C. Diff and WBC Stool orders were canceled due to specimen not being in liquid form. ) Social History Tobacco Use Types Packs/Day Years Used Date Smoking Tobacco: Never Passive Smoke Exposure: Never Smokeless Tobacco: Never Alcohol Use Standard Drinks/Week Comments Not Currently 0 (1 standard drink = 0.6 oz pur e alcohol) [facility] Utilities Answer Date Recorded In the past 12 months has th e electric, gas, oil, or water company threatened to shut off services in your home? No 12/14/2024 PHQ-2 Answer Date Recorded Initial depression screening score: 3 12/27/2024 Social Connections Answer Date Recorded How often do you see or talk to people that you care about and feel close to? (For example: talking to friends on the phone, visiting friends or family, going to temple or club meetings) 5 or more times [...] Never 01/22/2025 How often does anyone, himanshu mio family and friends, insult or talk down to you? Never 01/22/2025 How often does anyone, barbmarissa lieberman family and friends, threaten you with harm? Never 01/22/2025 How often does anyone, barbmarissa lieberman family and friends, scream or curse [...] of Assessment Author Yes 12/12/2024 6:41 AM Susan Gutierrez RN * Do you have difficulty dressing [...] Entry Date Author No 12/12/2024 6:41 AM uSsan Gutierrez RN documented in this encounter Miscellaneous Notes * Telephone Encounter - Dayanna Turcios RN - 01/24/2025 12:35 PM CDT Spoke with Kim. She reports her stool yesterday was formed for the first time. She denies havingloose stools currently. Will await stool culture and gastrointestinal parasites panel to be completed. She will contact the office if her stools become watery again. Kim reviewed her lab results. She noticed her urinalysis showed moderate bacteria. Per review ofchart, a culture was not completed. Contacted [facility], they are not able to add on the culture to the urine collected in the ER. Left message for Kim to call back or review/respond to [employer] message. * Telephone Encounter - Tanika Soria MA - 01/23/2025 5:54 PM CDT Left message for patient to call clinic to discuss discontinued labs. If patient is still experiencing diarrhea that has no form, please reenter lab orders that were discontinued. * Telephone Encounter - Hyun Pineda - 01/23/2025 3:58 PM CDT C. Diff and WBC Stool orders were canceled due to specimen not being in liquid form. Lab orders will need to be re-entered as they were originally ordered by an ED provider. Please reach out to patient if these samples are still needing to be collected. documented in this encounter Plan of Treatment Upcoming Encounters Date Type Department Care Team (Late st Contact Info) Description 04/10/2025 8:15 AM CDT Lab Services [facility] - [facility] [address] [place] [address] [place] [address] 04/11/2025 11:20 AM CDT Office Visit Primary Care Virtual - Family Medicine [address] [place] [address] [place] [address] [place] [address] 07/13/2025 2:45 PM CUSTOMER PROGRAM MANAGER Office Visit [facility] [address] [place] [id number] Jack Schuler DO [address] [place] [address] documented as of this encounter Visit Diagnoses Not on filedocumented in this encounter Additional Health Concerns Infection Onset Date Last Indicated Resolved Time C. difficile (rule out) 01/22/2025 01/23/202512/27 3:43 PM CDT Assessment Noted Time PHQ-9 Depression Total Score: 13 025 5:37 PM CDT A Body Mass Index follow-up plan has been documented for the patient 06/17/2023 10:39 AM CUSTOMER PROGRAM MANAGER documented as of this encounter Care Teams Palliative Care Physician Relationship Specialty Start Date End Date Lary Delvalle DO [address] [address] PCP - General Family Practice 09/06/24 Marco Antonio Figueroa MD [address] [place] [address] Referring Provider Neurology 04/22/22 Russ Gaitan DPM [address] [place] [address] Referring Provider Podiatry - Foot & Ankle Surgery 04/22/22 [place] [address] [place], [place] [id number] Referring Provider Orthopaedic Surgery- Adult Reconstructive Orthopaedic Surgery 04/22/22 [place] [address] [address] [place], [place] [id number] Chiropractic 04/22/22 Nicolasa Hackett PA-C [id number] [place] [address] Referring Provider Physician Chinese Herbalist - Surgery 11/14/24 Destiney Adam DO [address] [place] [address] Orthopedic Surgery 11/14/24 documented as of this encounter
--- OUTSIDE RECORDS SUMMARY | 2025-04-05 19:16 | XMS_ITS | Encounter Summary ---
Author Organization [facility] Address [address] [place] [address] Care Team Providers Care Project Manager Interior Design Name Role Phone Cheryl Tariq Primary Care Provider [phone] Cheryl Tariq-SOCIAL MEDIA MARKETING ANALYST Unavailable [phone] Cheryl Tariq-SOCIAL MEDIA MARKETING ANALYST Unavailable [phone] Lary Delvalle DO Primary Care Provider [phone] Encounter Details Date Type Department Care Team (Late st Contact Info) Description 01/03/2021 Telephone [facility] [address] [place] [phone] Cheryl Tariq APNP-SOCIAL MEDIA MARKETING ANALYST [address] [facility] [place] [address] Social History Tobacco Use Types Packs/Day Years [...] on file documented as of this encounter Plan of Treatment Not on file documented as of this encounter Visit Diagnoses Not on filedocumented in this encounter Additional Health Concerns Infection Onset Date Last Indicated Resolved Time COVID-19 Under Investigation 09/16/2022 09/16/2022 09/16/2022 9: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 documented as of this encounter Care Teams Project Manager Interior Design Relationship Specialty Start Date End Date Cheryl Tariq APNP-CNP PCP - General Nurse Practitioner Occupational Health 05/28/20 05/16/22 Cheryl Tariq APNP-CNP [address] [facility] [facility] [place] [address] PCP - Attributed-[facility] Commercial [employer] 08/27/20 01/09/22 Cheryl Tariq APNP-CNP [address] [place] [address] PCP - Attributed-[facility] [employer] 05/27/21 03/13/23 Lary Delvalle DO [address] [place] [address] PCP - General Family Medicine 05/17/22 documented as of this encounter
--- OUTSIDE RECORDS SUMMARY | 2025-04-05 19:16 | XMS_ITS | Clinical Summary ---
Author Organization [facility] Address [address] [place] [id number] Care Team Providers Care Extractor Loader And Unloader Name Role Phone Marco Antonio Figueroa MD Unavailable Russ Gaitan DPM Unavailable [phone] Baldev Bell MD Unavailable Liz Hernandez DC Unavailable Lary Delvalle DO Primary Care Provider [phone] Nicolasa Hackett PA-C Unavailable [phone] Destiney Adam DO Unavailable [phone] Allergies Active Allergy Reactions Criticality Noted Date Comments Amoxicillin-Pot Clavulanate VOMITING,DIARRHEA Medium 0 08/15/2022 Cat Dander Other (See Comments) 04/11/2014 Dog Dander Other (See Comments) 04/11/2014 Escitalopram ANAPHYLAXIS,RASH High 07/15/2019 Seasonal Other (See Comments) 04/11/2014 Sertraline Other (See Comments) Medium 07/27/2018 Medications fexofenadine (LAYNE) 180 MG tablet Take 180 mg by mouth daily. Active fluticasone (FLONASE) 50 MCG/ACT nasal spray [place] 2 sprays in each nostril daily as needed (allergies). Active rimegepant sulfate (Nurtec) 75 MG disintegrating tablet Take 1 tablet by mouth daily as needed for Migraine. Max 75 mg/24 hours. 18 tablet 3 022 Active insulin glargine 100 UNIT/ML pen-injectorIndic ations:Type 2 diabetes mellitus with hyperglycemia, without long-term current use of insulin (CMD) Inject 40 Units into the skin nightly. Prime 2 units before each dose. 15 mL 5 1:10 PM CDT 024 Active Continuous Glucose Sensor (FreeStyle Obie 2 Sensor) MiscIndications:T ype 2 diabetes mellitus with hyperglycemia, without long-term current use of insulin (CMD) Use to check blood sugars daily as directed. Change sensor every 14 days 2 each 1 024 Active ibuprofen (MOTRIN) 200 MG tablet Take 600-800 mg by mouth 2 times daily as needed for Pain. Active Naphazoline-Pheni ramine (VISINE OP) Place 1 drop into both eyes daily as needed (itchy, dry eye). Active lidocaine (LIDOCARE) 4 % patch Place 1 patch onto the skin daily. 30 patch 024 Active ondansetron (ZOFRAN ODT) [address] 1 tablet onto the tongue every 6 hours as needed for Nausea. 10 tablet 4 5:41 PM LINE FIXER Active Additional Information Patient not taking.Reported on 01/11/2025 Continuous Glucose Sensor (FreeStyle Obie 3 Plus Sensor) MiscIndications:T ype 2 diabetes mellitus with hyperglycemia, without long-term current use of insulin (CMD) Use as directed. Change every 15 days. 2 each 5 1:10 PM CDT 025 Active famotidine (PEPCID) 10 MG tablet Take 10 mg by mouth daily as needed (as needed). Active Insulin Pen Needle 31G X 5 MM MiscIndications:T ype 2 diabetes mellitus with hyperglycemia, without long-term current use of insulin (CMD) Use to inject insulin 1 time daily 100 each 3 5 1:10 PM CDT 025 Active propranolol (INDERAL LA) 120 MG 24 hr capsule Take 1 capsule by mouth nightly. 90 capsule 3 5 1:10 PM CDT 025 Active albuterol 108 (90 Base) MCG/ACT inhaler Inhale 2 puffs into the lungs every 4 hours as needed for Shortness of Breath or Wheezing. 8.5 g 3 5 5:37 PM CDT 025 Active DULoxetine (CYMBALTA) 60 MG capsule Take 1 capsule by mouth in the morning and 1 capsule in the evening. 180 capsule 3 5 3:57 PM CDT 025 Active propRANolol (INDERAL) 10 MG tablet Take 1 tablet by mouth 2 times daily as needed (anxiety/panic) . 60 tablet 1 5 11:35 AM CDT 025 Active gentamicin (GARAMYCIN) 0.3 % ophthalmic solutionIndicatio ns:Other mucopurulent conjunctivitis of left eye 2 drops affected eye(s) tid 5 mL 025 Active ipratropium-albut bandar (DUONEB) 0.5-2.5 (3) MG/3ML nebulizer solution Take 3 mLs by nebulization every 6 hours as needed for Wheezing. 360 mL 12 5 4:01 PM CDT 025 Active fluticasone-salme terol 250-50 MCG/ACT inhaler Inhale 1 puff into the lungs daily as needed (asthma). 180 each 3 5 4:01 PM CDT 025 Active MetFORMIN ER (GLUMETZA) 1000 MG modified release 24 hr tabletIndications :Type 2 diabetes mellitus with hyperglycemia, without long-term current use of insulin (CMD) Take 1 tablet by mouth in the morning and 1 tablet in the evening. Take with meals. 180 tablet 3 5 2:30 PM CDT 025 Active Vitamin D, Ergocalciferol, 19584 units Cap Take 1 capsule by mouth 1 day a week. 12 capsule 1 5 5:38 PM CDT 025 Active lisinopril (ZESTRIL) 10 MG tablet Take 1 tablet daily around noon time. 90 tablet 3 5 2:30 PM CDT 025 Active benzonatate (TESSALON PERLES) 200 MG capsuleIndication s:Acute bacterial sinusitis Take 1 capsule by mouth 3 times daily as needed for Cough. 15 capsule 025 Active Additional Information Patient not taking.Reported on 01/11/2025 predniSONE (DELTASONE) 20 MG tabletIndications :Cough, persistent Take 1 tablet by mouth 2 times daily. 10 tablet 5 9:55 AM CDT 025 Active Additional Information Patient not taking.Reported on 01/11/2025 prochlorperazine (COMPAZINE) [address] 1 suppository rectally every 12 hours as needed for Nausea. 6 suppository 025 Active amLODIPine (NORVASC) 5 MG tablet Take 1 tablet by mouth daily. 90 tablet 1 025 Active Aspirin 81 MG Cap Take 1 capsule by mouth daily. 025 Active atorvastatin (LIPITOR) 40 MG tablet Take 1 tablet by mouth nightly. 90 tablet 1 025 Active ondansetron (ZOFRAN ODT) [address] 1 tablet onto the tongue every 6 hours. 12 tablet 025 Active amitriptyline (ELAVIL) 25 MG tablet Take 1 tablet by mouth nightly. 90 tablet 1 5 3:57 PM CDT 025 Active fluconazole (DIFLUCAN) 150 MG tabletIndications :Vaginal yeast infection One pill today and one in 3 days if needed. #2 2 tablet 025 Active empagliflozin (Jardiance) 10 MG tablet Take 1 tablet by mouth daily (before breakfast). 90 tablet 3 5 1:10 PM CDT 025 Active empagliflozin (Jardiance) 10 MG tablet Take 1 tablet by mouth daily (before breakfast). 90 tablet 1 5 5:38 PM CDT 025 2024 Discontin ued(Reord er) cephalexin 500 MG tablet Take 1 tablet by mouth in the morning and 1 tablet in the evening. Do all this for 7 days. 14 tablet 025 2024 Active Problems Problem Noted Date Diagnosed Date Coronary artery disease invo lving [place] coronary artery of [place] heart without angina pectoris 12/12/2024 Overview (12/12/2024): Cath 12/12/2024 Gina dominant RCA; Diagonal 1 with 90% lesion, medical therapy. LV EDP 16, no gradient. Normal EF Migraine without aura and wi thout status migrainosus, not intractable 07/10/2022 Vitamin D deficiency 04/22/2022 Chronic tension-type headache, intractable 02/25 Dyslipidemia (high LDL; low HDL) 12/05/2020 Environmental allergies 12/05/2020 Hand eczema 12/05/2020 Hearing loss 12/05/2020 Memory loss 12/05/2020 Numbness and tingling 12/05/2020 Allergic asthma (CMD) 12/05/2020 Lumbar herniated disc 12/05/2020 Osteogenesis imperfecta type IV (CMD) 12/05/2020 Overview (04/22/2022): mild - bilateral hearing loss treated with hearing aids Obstructive sleep apnea 12/02/2019 Overview (08/28/2022): Uses CPAP. Sees [facility] for that Diabetes mellitus, type 2 (CMD) 11/25/2019 Essential hypertension 11/25/2019 Family history of thyroid disorder 05/07/2017 Allergic rhinitis 11/22/2015 Migraine with aura, without mention of intractable migraine without mention of status migrainosus 01/02/2014 Generalized anxiety disorder 04/14/2013 Resolved Problems Problem Noted Date Diagnosed Date Resolved Date Acute midline low back pain with right-sided sciatica 06/19/2024 12/29/2024 Anxiety 12/05/2020 08/28/2022 Dizziness 12/05/2020 08/28/2022 Vitamin D deficiency 05/07/2017 023 Anxiety and depression 11/22/201508/28 Right knee sprain 01/17/2014 01/17/2014 Benign paroxysmal positional vertigo 01/02/2014 11/20/2015 SPRAIN/STRAIN KNEE, RT - IND DOI 12/15/13 12/28/2013 11/20/2015 STRAIN CALF, RT - IND DOI 12/15/13 12/28/2013 11/20/2015 Right knee sprain 12/16/2013 01/17/2014 Calf pain - Right Calf 12/16/201311/19 Lumbar herniated disc 2022 Osteogenesis imperfecta type IV (CMD) 08/28/2022 Vertigo 05/07/2017 Migraines 05/07/2017 Encounters Date Type Department Care Team Description 04/03/2025 Telephone [facility] [address] [place] [address] Yanique Benson MD Triage 04/02/2025 9:03 AM CDT - 04/02/2025 12:[address] [facility] [place] [facility] [address] [place] [address] [place] [address] Amrit Mercado MD Dempsey Hagen, Margaret, core shaper top pain of right knee (Primary Dx); Hematoma of right lower leg Discharge Disposition: Home or Self Care 04/02/2025 Travel 03/20/2025 Refill [facility] [address] [place] [address] Lary Delvalle, Refill Request 03/04/2025 Results Follow-Up Primary Care [facility] [id number] [place] [phone] Galina Conde MD 03/02/2025 2:15 PM CDT Lab Services [facility] [place] [phone] Recurrent UTI (urinary tract infection) 03/02/2025 1:45 PM CDT Office Visit [facility] [address] [place] [address] Parmjit Kelly DO Acute pain of left knee (Primary Dx); S/P arthroscopy of knee 02/24/2025 [facility]Advice Primary Care [facility] [address] [place] [phone] Lary Delvalle, DO Yeast Infection 01/24/2025 [facility]Advice [facility] Care [facility] [id number] [place] [phone] Mychart, Patient Portal Appointment time change 01/24/2025 E-Advice [facility] [id number] [place] [phone] Lary Delvalle, 01/23/2025 3:15 PM CDT [facility] [place] [address] [place] [phone] Nausea vomiting and diarrhea 01/23/2025 Telephone [facility] [id number] [place] [phone] Lary Delvalle, DO Orders Only (C. Diff and WBC Stool orders were canceled due to specimen not being in liquid form. ) 01/23/2025 [facility]Advice [facility] [id number] [place] [phone] Lary Delvalle, DO Stool Sample 01/23/[address] [phone] Lary Delvalle, Refill Request 01/22/2025 3:04 PM CDT - 01/22/2025 6:[address] [facility] [place] [facility] Emergency Department [address] [place] [address] [place] [address] Camilo Horton DO Dempsey Hagen, Margaret, GINGER Nausea vomiting and diarrhea (Primary Dx) Discharge Disposition: Home or Self Care 01/22/2025 Travel 01/11/2025 3:00 PM CDT [facility] [address] [place] [address] Jack Schuler DO Ventricular tachycardia (CMD) (Primary Dx); Dyslipidemia (high LDL; low HDL) 01/09/2025 Telephone [facility] [address] [place] [phone] Parmjit Kelly DO 01/06/2025 7:15 AM CDT [facility] [place] [address] [place] [phone] Type 2 diabetes mellitus with hyperglycemia, without long-term current use of insulin (CMD); Dyslipidemia (high LDL; low HDL); Screening, anemia, deficiency, iron; Menopause syndrome; Vitamin D deficiency; Dysuria 01/06/2025 6:42 AM CDT - 01/06/2025 11:59 PM CDT Hospital Encounter [facility] [address] [place] [address] Discharge Disposition: Home or Self Care 01/06/2025 Nurse Triage Clinical Contact Ctr [facility] [address] [place] [address] Lary Delvalle DO No Contact 01/06/2025 Results Follow-Up Primary Care [facility] - [facility] Medicine [address] [place] [address] Kathya Savage, KATARINA Convey Results from Last 3 Months Immunizations Immunization Administration Dates Next Due COVID Moderna 0.5 mL 12Y+ 07/30/2021,11/02/2020, 10/05/2020 COVID Moderna/Spikevax 12+ 06/17/2023 COVID Pfizer Bivalent 12Y+ 06/05/2022 Influenza, MDCK, quadrivalent, PF 06/01/2020 Influenza, split virus, quadrivalent, PF 023,07/02/2022 Influenza, split virus, trivalent, PF 06/20/2024 Influenza, unspecified formulation 05/23/2019,,06/22/1995 Pneumococcal conjugate PCV20 12/16/2023 TD (Adult), 2 Lf tetanus tox oid, preserve free, Adsorbed 01/08/1996 TD Adult, Unspecified Formulation 01/08/1996 Tdap 06/01/2019,09/28/2012,12/14/2007 Surgical History Surgery Date Site/Laterality Comments TONSILLECTOMY KNEE SURGERY 08/12/2024 Left meniscal root tear repair Medical History Medical History Date Comments Lumbar herniated disc Osteogenesis imperfecta type IV (CMD) Vertigo Migraines Osteogenesis imperfecta type 4 (CMD) Hearing loss Asthma (CMD) 2001 Diabetes mellitus (CMD) Anxiety Depressive disorder Neuromuscular disorder (CMD) Osteoporosis 1982 Sleep apnea 2019 Allergy Family History Medical History Relation Comments Diabetes Father 1 Heart disease Father 1 Early Father 2 Heart disease Maternal Grandfather 1 Hearing Loss Maternal Grandfather 2 Diabetes Maternal Grandmother 1 Heart disease Maternal Grandmother 1 Vision Loss Maternal Grandmother 2 Macular D egeneration Diabetes Mother 1 Heart disease Mother 1 Migraine Mother 1 Depression Mother 2 Cancer Paternal Grandfather 1 lung canc er Cancer Paternal Grandmother 1 Relation Status Comments Father 1 Father 2 Maternal Grandfather 1 Maternal Grandfather 2 Maternal Grandmother 1 Maternal Grandmother 2 Mother 1 Mother 2 Paternal Grandfather 1 Paternal Grandfather 2 Paternal Grandmother 1 Paternal Grandmother 2 Social History Tobacco Use Types Packs/Day Years Used Date Smoking Tobacco: Never Passive Smoke Exposure: Never Smokeless Tobacco: Never Tobacco Cessation:Counseling Given: Not Answered Alcohol Use Standard Drinks/Week Comments Not Currently 0 (1 standard drink = 0.6 oz pur e alcohol) [facility] Utilities Answer Date Recorded In the past 12 months has [employer] electric, gas, oil, or water LikeWhere threatened to shut off services in your home? No 12/14/2024 PHQ-2 Answer Date Recorded Initial depression screening score: 3 12/27/2024 Social Connections Answer Date Recorded How often do you see or talk to people that you care about and feel close to? (For example: talking to friends on the phone, visiting friends or family, going to taoism or club meetings) 5 or more times [...] on file Sexual Orientation Not on file Obstetrics History Para Term AB IAB SAB Ectopic Molar Multiple Living Live Births 0 0 0 0 0 0 0 0 0 0 0 0 Last Filed Vital Signs Vital Sign Reading [...] 15.7 oz) 04/02/2025 9:10 AM CDT Height 167.6 cm (5' 6) 03/02/2025 1:49 PM CDT Body Mass Index 38.57 03/02/2025 1:49 PM CDT Plan of Treatment Upcoming Encounters Date Type Department Care Team (Late st Contact Info) Description 04/10/2025 8:15 AM CDT [facility] Services [facility] [place] [address] [place] [phone] 04/11/2025 11:20 AM CDT Office Visit Primary Care Virtual - Family Medicine [address] [place] [phone] [place] [address] [place], [place] [phone] 07/13/2025 2:45 PM LINE FIXER Office Visit [facility] [address] [place] [address] Jack Schuler DO [address] [place] [address] Health Maintenance Due Date Last Done Comments Hepatitis B Vaccine (1 of 3 - 19+ 3-dose series) 1999 Pap Smear 07/15/2022 07/15/2019, 11/27/2015 Diabetes Eye Exam 12/18/2022 12/18/2021 Cervical Cancer Screening 07/15/2024 HPV/Cotest 07/15/2024 07/15/2019, 11/27/2015 COVID-19 Vaccine ( season) 2025 06/17/2023, 06/05/2022, 07/30/2021, Additional history exists Influenza Vaccine (#1) 2025 , 06/17/2023, 07/02/2022, Additional history exists Diabetes Foot Exam 06/22/2025 06/22/2024, 0 12/01/2022, 08/28/2022 Diabetes A1C or GMI 07/08/2025 01/06/2025, 06/16/2024, 09/23/2023, Additional history exists Depression Screening 12/27/2025 12/27/2024 Microalbumin Ratio 01/06/2026 01/06/2025, 01/06/2025 GFR 04/02/2026 04/02/2025, 12/26, 01/06/2025, Additional history exists Breast Cancer Screening 01/06/2027 01/06/2025, 05/27 DTaP/Tdap/Td Vaccine (5 - Td or Tdap) 06/01/2029 06/01/2019, 09/28/2012, 12/14/2007, Additional history exists Pneumococcal Vaccine 0-49 Completed 12/16/2023 HPV Vaccine (No Doses Required) Completed Hepatitis A Vaccine Aged Out No longe r eligible based on patient's age to complete this topic Meningococcal Serogroup B Vaccine Aged Out No longer eligible based on patient's age to complete this topic Meningococcal Vaccine Aged Out No kelvin eulogio eligible based on patient's age to complete this topic Medical Devices Implanted Type Area Brick Sorter Device Identifier Shelf Expiration Date Model / Serial / Lot Kit Arthro Fx Meniscal Swivelock Biocomposite Root Repr - [id number] Implanted:Qty: 1 on 08/12/2024 by Parmjit Kelly DO at [facility] Leisenring Left: Knee [employer] [id number] 02/23/2026 [id number] / / [id number] Procedures Procedure Name Priority Date/Time Associated Diagnosis Comments CTA ABDOMINAL AORTA ILIOFEMORAL BILATERAL RUNOFF STAT 04/02/2025 9:59 AM CDT CREATININE - POINT OF CARE Routine 04/02/2025 9:37 AM CDT URINE, BACTERIAL CULTURE Routine 025 2:16 PM CDT Recurrent UTI (urinary tract infection) CAMPYLOBACTER, EIA Routine 01/23/2025 12 :50 PM CDT Nausea vomiting and diarrhea SHIGA TOXIN,EIA Routine 01/23/2025 12:50 PM CDT Nausea vomiting and diarrhea STOOL, BACTERIAL CULTURE Routine 025 12:50 PM CDT Nausea vomiting and diarrhea STOOL, BACTERIAL CULTURE Routine 025 12:50 PM CDT Nausea vomiting and diarrhea GASTROINTESTINAL PARASITES PANEL, BY PCR Routine 01/23/2025 12:50 PM CDT Nausea vomiting and diarrhea URINALYSIS WITH MICROSCOPY WITHOUT CULTURE STAT 01/22/2025 3:42 PM CDT CBC WITH AUTOMATED DIFFERENTIAL (PERFORMABLE ONLY) STAT Add-On 01/22/2025 3:15 PM CDT LIPASE STAT Add-On 01/22/2025 3:15 PM CDT HEPATIC FUNCTION PANEL STAT Add-On 3:15 PM CDT BASIC METABOLIC PANEL STAT Add-On 01/22/2025 3:15 PM CDT CBC WITH DIFFERENTIAL STAT Add-On 01/22/2025 3:15 PM CDT RAINBOW DRAW STAT 01/22/2025 3:15 PM CDT ELECTROCARDIOGRAM 12-LEAD Today 01/11/2025 3:23 PM CDT Ventricular tachycardia (CMD) URINE, BACTERIAL CULTURE Routine 025 7:14 AM CDT Dysuria CBC WITH AUTOMATED DIFFERENTIAL (PERFORMABLE ONLY) Routine 01/06/2025 7:14 AM CDT Screening, anemia, deficiency, iron URINALYSIS & REFLEX MICROSCOPY WITH CULTURE IF INDICATED Routine 01/06/2025 7:14 AM CDT Dysuria VITAMIN D -25 HYDROXY Routine 01/06/2025 7:14 AM CDT Vitamin D deficiency FOLLICLE STIMULATING HORMONE Routine 01/06/2025 7:14 AM CDT Menopause syndrome CBC WITH DIFFERENTIAL Routine 01/06/2025 7:14 AM CDT Screening, anemia, deficiency, iron FREE T4 Routine 01/06/2025 7:14 AM CDT Type 2 diabetes mellitus with hyperglycemia, without long-term current use of insulin (CMD) THYROID STIMULATING HORMONE Routine 01/06/2025 7:14 AM CDT Type 2 diabetes mellitus with hyperglycemia, without long-term current use of insulin (CMD) ALBUMIN, RANDOM URINE WITH CREATININE Routine 01/06/2025 7:14 AM CDT Type 2 diabetes mellitus with hyperglycemia, without long-term current use of insulin (CMD) GLYCOHEMOGLOBIN Routine 01/06/2025 7:14 AM CDT Type 2 diabetes mellitus with hyperglycemia, without long-term current use of insulin (CMD) LIPID PANEL WITH REFLEX Routine 01/07/20 7:14 AM CDT Dyslipidemia (high LDL; low HDL) COMPREHENSIVE METABOLIC PANEL Routine 01/06/2025 7:14 AM CDT Type 2 diabetes mellitus with hyperglycemia, without long-term current use of insulin (CMD) MAMMO SCREENING BILATERAL W VERÓNICA Routine 01/06/2025 7:00 AM CDT Screening mammogram for breast cancer EYE EXAM ESTABLISHED PT Routine 12/18/2021 PAP ORDER Routine 07/15/2019 HPV, HIGH RISK Routine 07/15/2019 from Last 3 Months or Most Recently Relevant to Health Maintenance Results * CTA ABDOMINAL AORTA ILIOFEMORAL BILATERAL [...] 04/02/2025 11:42 AM Created on Workstation ID: [id number] Signed on Workstation ID: [id number] Narrative 04/02/2025 11:42 AM CDT EXAM: CTA [...] 04/02/2025 11:42 AM Created on Workstation ID: [id number] Signed on Workstation ID: [id number] Amrit Mercado MD IMG CT PROCEDURES Final R esult * (ABNORMAL) Creatinine (POC) (04/02/2025 9:37 AM CDT) CREATININE - POINT OF CARE 0.50(L) 0.51 - 0.95 mg/dL 04/02/2025 9:37 AM CDT A2 - [facility] GLOMERULAR FILTRATION RATE - POINT OF CARE >90 >=60 04/02/2025 9:[address] CDT [address] Comment:eGFR results = or >6 0 mL/min/1.73m2 = Normal kidney function. Estimated GFR calculated using the CKD-EPI-R (2020) equation that does not include race in the creatinine calculation. Blood 04/02/2025 9:37 AM CDT 04/02/2025 9:41 AM CDT us Amrit Mercado MD BKR LAB PT OF CARE TST UN SOL Final Result A2CL - [facility] [address] [place] [address] * (ABNORMAL) Urine, Bacterial Culture (03/02/2025 2:16 PM CDT) Only the most recent of2 resultswithin the time period is included. Urine, Bacterial Culture >100,000 CFU/mL Escherichia coli(A) DANIELLE 03/04/2025 5:05 PM CDT [facility] Urine URINE SPECIMEN OBTAINED BY CLEAN CATCH PROCEDURE / Unknown 03/02/2025 2:16 PM CDT 03/02/2025 2:16 PM CDT Narrative [facility] - 03/04/2025 5:05 PM CDT Testing on this culture has been completed. If additional testing is required, please contact [facility] Client Services within 48 hours. Organism Antibiotic [...] Escherichia coli Trimethoprim/Sulfamethoxazole DANIELLE <=20 ug/mL: Susceptible Kathya FRANCES LAB MICRO-GEN ORDERAB LES Final Result Performing Organization Address City/[facility]/ZIP Co de Phone Number [address] * CAMPYLOBACTER, EIA (01/23/2025 12:50 PM CDT) Campylobacte r, EIA Negative for Campylobacter antigen by Enzyme Immunoassay Negative for Campylobacter antigen by Enzyme Immunoassay 01/25/2025 12:27 PM CDT [facility] Stool 01/23/2025 12:5 0 PM CDT 01/23/2025 3:29 PM CDT Camilo BARNETT LAB MICRO-GEN ORDERABLES Final Result Performing Organization Address [facility]/ZIP Co de Phone Number [address] * SHIGA TOXIN,EIA (01/23/2025 12:50 PM CDT) Shiga Toxin, EIA Negative for Shiga Toxin by Enzyme Immunoassay Negative for Shiga Toxin by Enzyme Immunoassay 01/25/2025 12:41 PM CDT [facility] Stool 01/23/2025 12:5 0 PM CDT 01/23/2025 3:29 PM CDT Camilo BARNETT LAB MICRO-GEN ORDERABLES Final Result Performing Organization Address City/[facility]/ZIP Co de Phone Number [address] * Gastrointestinal Parasites Panel by PCR (01/23/2025 12:50 PM CDT) Cryptosporidium species Not Detected Not Detected, Indeterminate 5 10:39 AM CDT [facility] Entamoeba histolytica Not Detected Not Detected 5 10:39 AM CDT [facility] Giardia lamblia Not Detected Not Detected 01/25 10:39 AM CDT [facility] Procedural Notes This result was obtained by multiplex PCR amplification and can detect the following microbial pathogens: Giardia lamblia, Cryptosporidium spp (C. parvaum and C. hominis only), Entamoeba histolytica. This test has been cleared or approved by the [place] Food and Drug Administration. The performance characteristics of this test using [employer] transport medium were determined by [facility]. This test is used for clinical purposes and should not be regarded as investigational or for research. This laboratory is certified under the Clinical Laboratory Improvement Amendments (CLIA) as qualified to perform high complexity clinical laboratory testing. 10:39 AM CDT [facility] Stool STOOL SPECIMEN / Unknown 01/23/2025 12:50 PM CDT 01/23/2025 3:29 PM CDT [facility] MOLEC DIAGN ORD Final Result Performing Organization Address City/[facility]/ZIP Co de Phone Number [address] * STOOL, BACTERIAL CULTURE (01/23/2025 12:50 PM CDT) CULTURE, STOOL Negative for Salmonella, Shigella, Aeromonas, and Plesiomonas 01/25/2025 8:42 AM CDT [facility] Stool 01/23/2025 12:5 0 PM CDT 01/23/2025 3:29 PM CDT Camilo Mc4R LAB MICRO-GEN ORDERABLES Final Result Performing Organization Address [facility]/ZIP Co de Phone Number [address] * (ABNORMAL) Urinalysis with microscopy without culture (01/22/2025 3:42 PM CDT) COLOR, URINALYSIS Yellow 01/22/2025 4:[address] APPEARANCE, URINALYSIS Hazy 01/22/2025 4:29 PM CDT A2 - [facility] GLUCOSE, URINALYSIS Trace(A) Negative mg/dL 01/22/2025 4:29 PM CDT [facility] BILIRUBIN, URINALYSIS Negative Negative 01/22/2025 4:29 PM CDT [facility] KETONES, URINALYSIS Negative Negative mg/dL 01/22/2025 4:[address] SPECIFIC GRAVITY, URINALYSIS >1.030(H) 1.005 - 1.030 01/22/2025 4:29 PM CDT [facility] OCCULT BLOOD, URINALYSIS Negative Negative 01/22/2025 4:[address] PH, URINALYSIS 5.0 5.0 - 7.0 01/22/2025 4:29 PM CDT [facility] PROTEIN, URINALYSIS Trace(A) Negative mg/dL 01/22/2025 4:29 PM CDT [facility] UROBILINOGEN, URINALYSIS 0.2 0.2, 1.0 mg/dL 01/22/2025 4:29 PM CDT [facility] NITRITE, URINALYSIS Negative Negative 01/22/2025 4:29 PM CDT [facility] LEUKOCYTE ESTERASE, URINALYSIS Negative Negative 01/22/2025 4:29 PM CDT A2 - [facility] SQUAMOUS EPITHELIAL, URINALYSIS 26 to 100(A) None Seen, 1 to 5 /hpf 01/22/2025 4:29 PM CDT A2 - [facility] ERYTHROCYTES, URINALYSIS None Seen None Seen, 1 to 2 /hpf 01/22/2025 4:29 PM CDT [facility] LEUKOCYTES, URINALYSIS 6 to 10(A) None Seen, 1 to 5 /hpf 01/22/2025 4:29 PM CDT A2 - [facility] BACTERIA, URINALYSIS Moderate(A) None Seen /hpf 01/22/2025 4:[address] HYALINE CASTS, URINALYSIS None Seen None Seen, 1 to 5 /lpf 01/22/2025 4:[address] Urine URINE SPECIMEN OBTAINED BY CLEAN CATCH PROCEDURE / Unknown 01/22/2025 3:42 PM CDT 01/22/2025 3:49 PM CDT Camilo Horton DO BKR LAB URINE ORDERABLES Christina l Result [address] [place] [address] * Lavender Top (01/22/2025 3:15 PM CDT) Extra Tube Hold for Add Ons 01/23/2025 12:02 AM CDT [address] Blood VENOUS BLOOD SPECIMEN / Unknown New IV Insertion / Unknown 01/22/2025 3:15 PM CDT 01/22/2025 3:18 PM CDT Camilo Horton DO [employer] LAB BLOOD ORDERABLES Christina l Result [address] [facility] [place]note 2[place] [id number] * Light Green Top (01/22/2025 3:15 PM CDT) Extra Tube Hold for Add Ons 01/23/2025 12:02 AM CDT [address] Blood VENOUS BLOOD SPECIMEN / Unknown New IV Insertion / Unknown 01/22/2025 3:15 PM CDT 01/22/2025 3:18 PM CDT Camilo Horton DO BKR LAB BLOOD ORDERABLES Christina l Result [address] [facility] [place]note 2[place] [address] * (ABNORMAL) CBC with Automated Differential (performable only) (01/22/2025 3:15 PM CDT) Only the most recent of2 resultswithin the time period is included. WBC 11.6(H) 4.2 - 11.0 K/mcL 01/22/2025 3:36 PM CDT [facility] RBC 4.84 4.00 - 5.20 mil/mcL 01/22/2025 3:36 PM CDT [facility] HGB 14.9 12.0 - 15.5 g/dL 01/22/2025 3:36 PM CDT [facility] HCT 44.8 36.0 - 46.5 % 01/22/2025 3:36 PM CDT [facility] MCV 92.6 78.0 - 100.0 fl 01/22/2025 3:36 PM CDT [facility] - [facility] MCH 30.8 26.0 - 34.0 pg 01/22/2025 3:36 PM CDT [facility] MCHC 33.3 32.0 - 36.5 g/dL 01/22/2025 3:36 PM CDT A2[facility] - [facility] RDW-CV 13.2 11.0 - 15.0 % 01/22/2025 3:36 PM CDT [facility] RDW-SD 44.2 39.0 - 50.0 fL 01/22/2025 3:36 PM CDT [facility] PLT 350 140 - 450 K/mcL 01/22/2025 3:36 PM CDT [facility] - [facility] NRBC 0 <=0 /100 WBC 01/22/2025 3:36 PM CDT [facility] - [facility] Neutrophil, Percent 53 % 01/22/2025 3:36 PM CDT A2CL - [facility] Lymphocytes, Percent 32 % 01/22/2025 3:36 PM CDT [facility] - [facility] [place], Percent 5 % 01/22/2025 3:36 PM CDT [facility] - [facility] Eosinophils, Percent 10 % 01/22/2025 3:[address] Basophils, Percent 0 % 01/22/2025 3:[address] Immature Granulocytes 0 % 01/22/2025 3:[address] Absolute Neutrophils 6.1 1.8 - 7.7 K/mcL 01/22/2025 3:[address] Absolute Lymphocytes 3.7 1.0 - 4.8 K/mcL 01/22/2025 3:[address] Absolute Monocytes 0.6 0.3 - 0.9 K/mcL 01/22/2025 3:[address] Absolute Eosinophils 1.1(H) 0.0 - 0.5 K/mcL 01/22/2025 3:[address] Absolute Basophils 0.1 0.0 - 0.3 K/mcL 01/22/2025 3:[address] Absolute Immature Granulocytes 0.1 0.0 - 0.2 K/mcL 01/22/2025 3:36 PM CDT [address] Blood VENOUS BLOOD SPECIMEN / Unknown New IV Insertion / Unknown 01/22/2025 3:15 PM CDT 01/22/2025 3:18 PM CDT Narrative [address] - 01/22/2025 3:36 PM CDT This is an appended report. These results have been appended to a previously verified report. us Camilo BARNETT LAB BLOOD ORDERABLES Christina curtis Result [address] [facility] [place]note 2[place] [id number] * Lipase (01/22/2025 3:15 PM CDT) Lipase 46 15 - 77 Units/L 01/22/2025 3:46 PM CDT [address] Blood VENOUS BLOOD SPECIMEN / Unknown New IV Insertion / Unknown 01/22/2025 3:15 PM CDT 01/22/2025 3:18 PM CDT Camilo Horton DO BKR LAB BLOOD ORDERABLES Christina l Result [address] [facility] [place] [address] * (ABNORMAL) Hepatic Function Panel (01/22/2025 3:15 PM CDT) Pathologist [facility] Albumin 3.2(L) 3.4 - 5.0 g/dL 01/22/2025 3:[address] Bilirubin, Total 0.4 0.2 - 1.0 mg/dL 01/22/2025 3:[address] Bilirubin, Direct 0.1 0.0 - 0.2 mg/dL 01/22/2025 3:[address] Alkaline Phosphatase 137(H) 45 - 117 Units/L 01/22/2025 3:[address] GPT/ALT 17 <64 Units/L 01/22/2025 3:[address] GOT/AST 14 <=37 Units/L 01/22/2025 3:[address] Protein, Total 7.1 6.4 - 8.2 g/dL 01/22/2025 3:46 PM [address]T [address] Blood VENOUS BLOOD SPECIMEN / Unknown New IV Insertion / Unknown 01/22/2025 3:15 PM CDT 01/22/2025 3:18 PM CDT Camilo LYONSR LAB BLOOD ORDERABLES Christina l Result [address] [facility] [place] [address] * (ABNORMAL) Basic Metabolic Panel (01/22/2025 3:15 PM CDT) Fasting Status 01/22/2025 3:[address] Sodium 138 135 - 145 mmol/L 01/22/2025 3:[address] Potassium 4.1 3.4 - 5.1 mmol/L 01/22/2025 3:[address] Chloride 104 97 - 110 mmol/L 01/22/2025 3:[address] Carbon Dioxide 25 21 - 32 mmol/L 01/22/2025 3:[address] Anion Gap 13 7 - 19 mmol/L 01/22/2025 3:[address] Glucose 148(H) 70 - 99 mg/dL 01/22/2025 3:[address] BUN 5(L) 6 - 20 mg/dL 01/22/2025 3:[address] Creatinine 0.58 0.51 - 0.95 mg/dL 01/22/2025 3:[address] Glomerular Filtration Rate >90 >=60 01/22/2025 3:[address] Comment:eGFR results = or >6 0 mL/min/1.73m2 = Normal kidney function. Estimated GFR calculated using the CKD-EPI-R (2020) equation that does not include race in the creatinine calculation. BUN/Cr 9 7 - 25 01/22/2025 3:[address] Calcium 8.6 8.4 - 10.2 mg/dL 01/22/2025 3:46 PM [address] Blood VENOUS BLOOD SPECIMEN / Unknown New IV Insertion / Unknown 01/22/2025 3:15 PM CDT 01/22/2025 3:18 PM CDT Camilo Horton DO BKR LAB BLOOD ORDERABLES Christina curtis Result A2CL - [address] [address] * (ABNORMAL) Urinalysis & Reflex Microscopy With Culture If Indicated (01/06/2025 7:14 AM CDT) COLOR, URINALYSIS Straw 01/06/2025 11:51 AM [facility] APPEARANCE, URINALYSIS Hazy 01/06/2025 11:51 AM [facility] GLUCOSE, URINALYSIS 300(A) Negative mg/dL 01/06/2025 11:51 AM [facility] BILIRUBIN, URINALYSIS Negative Negative 01/06/2025 11:51 AM [facility] KETONES, URINALYSIS Negative Negative mg/dL 01/06/2025 11:51 AM [facility] SPECIFIC GRAVITY, URINALYSIS 1.020 1.005 - 1.030 01/06/2025 11:51 AM [facility] OCCULT BLOOD, URINALYSIS Negative Negative 01/06/2025 11:51 AM [facility] PH, URINALYSIS 5.5 5.0 - 7.0 01/06/2025 11:51 AM [facility] PROTEIN, URINALYSIS Trace(A) Negative mg/dL 01/06/2025 11:51 AM [facility] UROBILINOGEN, URINALYSIS 0.2 0.2, 1.0 mg/dL 01/06/2025 11:51 AM [facility] NITRITE, URINALYSIS Positive(A) Negative 01/06/2025 11:51 AM [facility] LEUKOCYTE ESTERASE, URINALYSIS Moderate(A) Negative 01/06/2025 11:51 AM [facility] SQUAMOUS EPITHELIAL, URINALYSIS 6 to 10(A) None Seen, 1 to 5 /hpf 01/06/2025 11:51 AM [facility] ERYTHROCYTES, URINALYSIS 1 to 2 None Seen, 1 to 2 /hpf 01/06/2025 11:51 AM CDT [facility] LEUKOCYTES, URINALYSIS 26 to 100(A) None Seen, 1 to 5 /hpf 01/06/2025 11:51 AM CDT [facility] BACTERIA, URINALYSIS Large(A) None Seen /hpf 01/06/2025 11:51 AM CDT [facility] HYALINE CASTS, URINALYSIS None Seen None Seen, 1 to 5 /lpf 01/06/2025 11:51 AM CDT [facility] AMORPHOUS MATERIAL Present 01/06/2025 11:51 AM CDT [facility] MUCUS Present 01/06/2025 11:51 AM T [facility] Urine URINE SPECIMEN OBTAINED BY CLEAN CATCH PROCEDURE / Unknown 01/06/2025 7:14 AM CDT 01/06/2025 7:14 AM CDT us Lary Delvalle DO BKR LAB URINE ORDERABLES Christina l Result [facility] [address] [id number] * (ABNORMAL) Microalbumin Urine Random (01/06/2025 7:14 AM CDT) Microalbumin, Urine 6.23 mg/dL 01/06/2025 9:07 PM T [facility] Creatinine, Urine 54.8 mg/dL 01/06/2025 9:07 PM T [facility] Microalbumin/ Creatinine Ratio 113.7(H) <30.0 mg/g 01/06/2025 9:07 PM T [facility] Comment:Short term hyperglyc emia, exercise, urinary tract infections, marked hypertension, heart failure, and acute febrile illness can cause transient elevations in urinary albumin excretion. Due to marked day-to-day variability in albumin excretion, at least two of the three collections done in a 3 to 6 month period should show elevated levels before initially designating a patient as having microalbuminuria. Urine URINE SPECIMEN OBTAINED BY CLEAN CATCH PROCEDURE / Unknown 01/06/2025 7:14 AM CDT 01/06/2025 7:14 AM CDT Lary Delvalle DO BKR LAB URINE ORDERABLES Christina l Result Performing Organization Address [facility] Co de Phone Number [facility] [address] [phone] * Thyroid Stimulating Hormone (01/06/2025 7:14 AM CDT) TSH 2.110 0.350 - 5.000 mcUnits/mL 01/06/2025 10:51 AM CDT [facility] Comment: Reference range in (if applicable): First Trimester 0.1 - 4.0 mcUnits/mL Second Trimester 0.2 - 4.0 mcUnits/mL Third Trimester 0.3 - 4.5 mcUnits/mL Blood VENOUS BLOOD SPECIMEN / Unknown Venipuncture / Unknown 01/06/2025 7:14 AM CDT 01/06/2025 7:14 AM CDT Lary BARNETT LAB BLOOD ORDERABLES Christina l Result Performing Organization Address [facility] Co de Phone Number [facility] [address] [place] [address] * (ABNORMAL) Glycohemoglobin (01/06/2025 7:14 AM CDT) Hemoglobin A1C 6.8(H) 4.5 - 5.6 % 01/06/2025 12:45 PM CDT [facility] Comment: Diabetic Screening Non Diabetic: <5.7% Increased Risk: 5.7-6.4% Diagnostic For Diabetes: >6.4% Diabetic Control A1C% eAG mg/dL 6.0 126 6.5 140 7.0 154 7.5 169 8.0 183 8.5 197 9.0 212 9.5 226 10.0 240 Blood VENOUS BLOOD SPECIMEN / Unknown Venipuncture / Unknown 01/06/2025 7:14 AM CDT 01/06/2025 7:14 AM CDT Lary Delvalle DO BKR LAB BLOOD ORDERABLES Christina l Result [facility] [address] [place] [address] * (ABNORMAL) Free T4 (01/06/2025 7:14 AM CDT) T4, Free 0.6(L) 0.8 - 1.5 ng/dL 01/06/2025 10:51 AM CDT [facility] Blood VENOUS BLOOD SPECIMEN / Unknown Venipuncture / Unknown 01/06/2025 7:14 AM CDT 01/06/2025 7:14 AM CDT Lary LYONSR LAB BLOOD ORDERABLES Christina l Result Performing Organization Address [facility]/[place] [address] * Follicle Stimulating Hormone (01/06/2025 7:14 AM CDT) FSH 14.4 mUnits/mL 01/06/2025 12:03 PM CDT [facility] Comment: Follicular Phase 2.5 to 10.2 mUnits/mL Midcycle Peak 3.4 to 33.4 mUnits/mL Luteal Phase 1.5 to 9.1 mUnits/mL 0.0 to 0.2 mUnits/mL Postmenopausal 23.0 to 116.3 mUnits/mL Blood VENOUS BLOOD SPECIMEN / Unknown Venipuncture / Unknown 01/06/2025 7:14 AM CDT 01/06/2025 7:14 AM CDT Lary Delvalle DO BKR LAB BLOOD ORDERABLES Christina l Result [address] * (ABNORMAL) Comprehensive Metabolic Panel (01/06/2025 7:14 AM [facility]) Fasting Status 11 0 - 999 Hours 01/06/2025 10:51 AM [facility] Sodium 141 135 - 145 mmol/L 01/06/2025 10:51 AM [facility] Potassium 4.6 3.4 - 5.1 mmol/L 01/06/2025 10:51 AM [facility] Chloride 106 97 - 110 mmol/L 01/06/2025 10:51 AM [facility] Carbon Dioxide 24 21 - 32 mmol/L 01/06/2025 10:51 AM [facility] Anion Gap 16 7 - 19 mmol/L 01/06/2025 10:51 AM [facility] Glucose 149(H) 70 - 99 mg/dL 01/06/2025 10:51 AM [facility] BUN 10 6 - 20 mg/dL 01/06/2025 10:51 AM [facility] Creatinine 0.54 0.51 - 0.95 mg/dL 01/06/2025 10:51 AM [facility] Glomerular Filtration Rate >90 >=60 01/06/2025 10:51 AM [facility] Comment:eGFR results = or >6 0 mL/min/1.73m2 = Normal kidney function. Estimated GFR calculated using the CKD-EPI-R (2020) equation that does not include race in the creatinine calculation. BUN/Cr 19 7 - 25 01/06/2025 10:51 AM [facility] Calcium 8.9 8.4 - 10.2 mg/dL 01/06/2025 10:51 AM [facility] Bilirubin, Total 0.6 0.2 - 1.0 mg/dL 01/06/2025 10:51 AM [facility] GOT/AST 14 <=37 Units/L 01/06/2025 10:51 AM [facility] GPT/ALT 31 <64 Units/L 01/06/2025 10:51 AM CDT [facility] Alkaline Phosphatase 101 45 - 117 Units/L 01/06/2025 10:51 AM CDT [facility] Albumin 3.4 3.4 - 5.0 g/dL 01/06/2025 10:51 AM CDT [facility] Protein, Total 6.6 6.4 - 8.2 g/dL 01/06/2025 10:51 AM T [facility] Globulin 3.2 2.0 - 4.0 g/dL 01/06/2025 10:51 AM T [facility] A/G Ratio 1.1 1.0 - 2.4 01/06/2025 10:51 AM T [facility] Blood VENOUS BLOOD SPECIMEN / Unknown Venipuncture / Unknown 01/06/2025 7:14 AM CDT 01/06/2025 7:14 AM CDT us Lary Delvalle DO BKR LAB BLOOD ORDERAB[place] [address] * Vitamin D -25 Hydroxy (01/06/2025 7:14 AM CDT) [facility] Vitamin D, 25-Hydroxy 39.0 30.0 - 100.0 ng/mL 01/06/2025 12:03 PM CDT [facility] Comment: <20 ng/mL = Vitamin D deficiency 20-29 ng/mL = Vitamin D insufficiency 30-100 ng/mL = Optimal Vitamin D >150 ng/mL = Possible toxicity Blood VENOUS BLOOD SPECIMEN / Unknown Venipuncture / Unknown 01/06/2025 7:14 AM CDT 01/06/2025 7:14 AM CDT Lary Delvalle DO BKR LAB BLOOD ORDERABLES Christina l Result [address] [place] [address], [place] * (ABNORMAL) Lipid Panel With Reflex (01/06/2025 7:14 AM CDT) Cholesterol 119 <=199 mg/dL 01/06/2025 10:51 AM T [facility] Comment: Desirable <200 Borderline High 200 to 239 High >=240 Triglycerides 124 <=149 mg/dL 01/06/2025 10:51 AM [facility] Comment: Normal <150 Borderline High 150 to 199 High 200 to 499 Very High >=500 HDL 30(L) >=50 mg/dL 01/06/2025 10:51 AM [facility] Comment: Low <40 Borderline Low 40 to 49 Near Optimal 50 to 59 Optimal >=60 LDL 64 <=129 mg/dL 01/06/2025 10:51 AM [facility] Comment: Optimal <100 Near Optimal 100 to 129 Borderline High 130 to 159 High 160 to 189 Very High >=190 Non-HDL Cholesterol 89 mg/dL 01/06/2025 10:51 AM [facility] Comment: Therapeutic Target: CHD and risk equivalents <130 Multiple risk factors <160 0 to 1 risk factor <190 Cholesterol/ HDL Ratio 4.0 <=4.4 01/06/2025 10:51 AM T [facility] Blood VENOUS BLOOD SPECIMEN / Unknown Venipuncture / Unknown 01/06/2025 7:14 AM CDT 01/06/2025 7:14 AM CDT us Lary Delvalle DO BKR LAB BLOOD ORDERABLES Christina l Result [facility] [address] [place] [address] * MAMMO SCREENING BILATERAL W VERÓNICA (01/06/2025 7:00 AM CDT) Anatomical Region Laterality Modality Breast Bilateral Mammography 01/06/2025 9:21 AM CDT Impressions 01/06/2025 9:25 AM CDT IMPRESSION: No mammographic evidence for malignancy. RECOMMENDATION: Annual screening mammography and clinical breast exam. BI-RADS Category 1: Negative. In compliance with federal regulations, the patient will be sent a lay summary result of this report. Electronically Signed by: Kaye Kirby MD Signed on: 01/06/2025 9:25 AM Created on Workstation ID: [id number] Signed on Workstation ID: [id number] Narrative 01/06/2025 9:25 AM CDT EXAM: MAMMO SCREENING BILATERAL W VERÓNICA DATE OF EXAM: 01/06/2025 6:42 AM. COMPARISON EXAMS: Mammogram dated 05/27/2022. CLINICAL INDICATION: Screening. RISK ASSESSMENT: This patient's lifetime risk of breast cancer is estimated at 16.6%, with an aged-matched comparison of 11.3%. Risk calculation was performed based on the current information documented in the patient's EPIC chart. TECHNIQUE: Bilateral digital screening mammogram with 2D and tomosynthesis. Computer-Aided Detection was utilized. DENSITY: The breasts are heterogeneously dense, which may obscure small masses. FINDINGS: No suspicious asymmetries or groups of microcalcifications. Lary Delvalle DO IMG BI PROCEDURES Final Resul t * EYE EXAM ESTABLISHED PT (12/18/2021) [facility] DILATED EYE EXAM No Retinopathy Generic External Data Provider OTHER PROFESSIONA L SERVICES Final Result * Pap Test (07/15/2019) Pathologist [facility] PAP TEST Normal Comment:[facility] us Ext Result Console BKR LAB CYTOLOGY ORDERABLES F inal Result * HPV, High Risk (07/15/2019) [facility] High Risk HPV Negative Negative Comment:[facility] [place] VAGINAL AND CERVICAL CYTOLOGIC MATERIAL / Unknown us Ext Result Console BKR LAB MOLEC DIAGN ORD Final Result from Last 3 Months or Most Recently Relevant to Health Maintenance [place] [address] [place] [address] [employer] [address] [phone] [facility] [employer] * Guarantor: NINA ANGEL [employer] Account Type Relation to Patient Date of Phone Billing Address Occupational [employer] Employer [employer] [address] [place] [phone] * Guarantor: NINA ANGEL [facility] Account Type Relation to Patient Date of Phone Billing Address Occupational Medicine Employer [address] [place] [address] * Guarantor: [employer] Account Type Relation to Patient Date of Phone Billing Address Occupational Medicine Employer [address] [place] [address] Advance Directives * Full Resuscitation (Latest Code Status on File) Date Activated Date Inactivated Comments 12/12/2024 6:10 AM 12/12/2024 2:51 PM * Full Resuscitation Date Activated Date Inactivated Comments 06/20/2024 1:12 AM 06/21/2024 8:26 PM * Full Resuscitation Date Activated Date Inactivated Comments 06/12/2022 11:30 AM 06/12/2022 4:49 PM Care Teams Extractor Loader And Unloader Relationship Specialty Start Date End Date Lary Delvalle DO [address] [facility] [address] [place] [address] PCP - General Family Practice 09/06/24 Marco Antonio Figueroa MD [address] [place] [address] Referring Provider Neurology 04/22/22 Russ Gaitan DPM [address] [place] [address] Referring Provider Podiatry - Foot & Ankle Surgery 04/22/22 [place] [address] [place] [address] Referring Provider Orthopaedic Surgery- Adult Reconstructive Orthopaedic Surgery 04/22/22 [place] [address] [place] [address] Chiropractic 04/22/22 Nicolasa Hackett PA-C [facility] [id number] [place] [address] Referring Provider Physician Envelope Machine Adjuster - Surgery 11/14/24 Destiney Adam DO [address] [facility] [place] [address] Orthopedic Surgery 11/14/24
--- OUTSIDE RECORDS SUMMARY | 2025-04-05 19:16 | XMS_ITS | Encounter Summary ---
Author Organization [facility] Address [address] [place] [address] Care Team Providers Care Certified Histologic Technician Name Role Phone Marco Antonio Figueroa MD Unavailable Russ Gaitan DPM Unavailable [phone] Baldev Bell MD Unavailable [phone] Liz Hernandez DC Unavailable [phone] Lary Delvalle DO Primary Care Provider [phone] Nicolasa Hackett PA-C Unavailable [phone] Destiney Adam DO Unavailable [phone] Encounter Details Date Type Department Care Team (Late st Contact Info) Description 01/24/2025 E-Advice Primary Care [facility] - Family Medicine [address] [place] [phone] [employer], Patient Portal Appointment time change Social History Tobacco Use Types Packs/Day Years Used Date Smoking Tobacco: Never Passive Smoke Exposure: Never Smokeless Tobacco: Never Alcohol Use Standard Drinks/Week Comments Not Currently 0 (1 standard drink = 0.6 oz pur e alcohol) [facility] Utilities Answer Date Recorded In the past [...] phone, visiting friends or family, going to caodaism or club meetings) 5 or more times [...] of Assessment Author No 06/12/2022 11:47 AM HEAD COOK Bethany Ball RN * Do you have [...] Services [facility] Lab - [facility]fin [place] [address] [place] [address] [place] [phone] 04/11/2025 11:20 AM CDT Office Visit Primary Care [facility] - Family Medicine [address] [place] [phone] [place] [address] [place] [address] 07/13/2025 2:45 PM HEAD COOK Office Visit [facility] [address] [place] [phone] Jack Schuler DO [address] [place] [address] documented as of this encounter Visit Diagnoses Not on filedocumented in this encounter Additional Health Concerns Assessment Noted Time PHQ-9 Depression Total Score: 13 06/03/2 025 5:37 PM CDT A Body Mass Index follow-up plan has been documented for the patient 06/17/2023 10:39 AM HEAD COOK documented as of this encounter Care Teams Certified Histologic Technician Relationship Specialty Start Date End Date Lary Delvalle DO [address] [facility] [place] [address] PCP - General Family Practice 09/06/24 Marco Antonio Figueroa MD [address] [place] [address] Referring Provider Neurology 04/22/22 Russ Gaitan DPM [address] [place] [address] Referring Provider Podiatry - Foot & Ankle Surgery 04/22/22 [place] [address] [place] [address] Referring Provider Orthopaedic Surgery- Adult Reconstructive Orthopaedic Surgery 04/22/22 [place] [address] [place], [place] [phone] Chiropractic 04/22/22 Nicolasa Hackett PA-C [facility] [id number] [place] [address] Referring Provider Physician Chemistry Lab Instructor - Surgery 11/14/24 Destiney Adam DO [address] [place] [address] Orthopedic Surgery 11/14/24 documented as of this encounter
--- OUTSIDE RECORDS SUMMARY | 2025-04-05 19:16 | XMS_ITS | Referral Summary ---
Author Organization [facility] [place] [address] Care Team Providers Care Slab Lifting Supervisor Name Role Phone Uwnopcp, No Pcp Primary Care Provider Unavailabl e Source Comments The [facility] EMR consists of medical records from all [facility] ([facility]), the [facility] ([facility]), [facility], as well as other affiliates or partners, to include: [facility] in [place], [place], [facility] Hospice Care, [facility] Fertility Care, [facility], [facility] Aesthetics and Plastic Surgery, [facility], [facility]), [facility], and [facility]. The EMR may not contain all information available for this patient pursuant to the Care Everywhere program, as well as varying phases of implementation.[facility] and [facility] Allergies No known active allergies Medications * Medications may not be up to date as of this document. Always verifycurrent medications with the patient. prednisone (DELTASONE) 20 MG tab Take by mouth one time daily. 40 mg daily for 4 days, then 20 mg daily for 6 days. 14 tab 1 0 Active fexofenadine (LAYNE) 180 MG tab Take 1 tab by mouth one time daily. 90 tab 3 1 Active albuterol (2.5 MG/3ML) 0.083% neb solnIndications :Asthma Take 3 mL by nebulizer every 4 hours as needed. 100 Vial 3 2 Active Glucose Blood (ACCU-CHEK SMARTVIEW) STRP Test blood sugar daily 100 each 2 2 Active ACCU-CHEK FASTCLIX LANCETS MISC Test daily 100 each 2 2 Active ranitidine (ZANTAC) 150 MG tab Take 1 tab by mouth 2 times daily. 180 tab 3 2 Active cholecalciferol (VITAMIN D) 1000 UNITS capIndications: Vitamin D deficiency Take 1 cap by mouth one time daily. 30 cap 12 2 Active Calcium Carb-Cholecalci ferol (CALCIUM 500 +D) 500-400 MG-UNIT per tabIndications: Vitamin D deficiency,Oste ogenesis imperfecta Take 1 tab by mouth 2 times daily at mealtime. 60 tab 0 2 Active albuterol HFA 108 (90 BASE) MCG/ACT inhaler Inhale 2 puffs every 4-6 hours as needed. 3 Inhaler 0 3 Active fluticasone (FLONASE) 50 MCG/ACT nasal spray 2 sprays in each nostril one time daily. 3 Bottle 3 3 Active fluticasone-andrey meterol (ADVAIR DISKUS) 250-50 MCG/DOSE inhaler Inhale 1 puff 2 times daily. 3 each 3 3 Active citalopram (CELEXA) 20 MG tab Take 1 tab by mouth one time daily at bedtime. 30 tab 0 4 Active fluticasone-andrey meterol (ADVAIR DISKUS) 250-50 MCG/DOSE inhaler Inhale 1 puff 2 times daily. 1 each 0 4 Active Active Problems Problem Noted Date Diagnosed Date Generalized anxiety disorder 04/14/2013 Pre-diabetes 04/22/2012 Dyslipidemia, goal LDL below 100 04/22/2012 Obesity 04/08/2012 Asthma Overview (12/14/2007): moderately severe Allergic rhinitis Osteogenesis imperfecta Hearing loss Immunizations Immunization Administration Dates Next Due Tetanus/Diphtheria/Acellular Pertussis (Tdap) Vaccine (> 7 Yrs) 12/14/2007 Social History Tobacco Use Types Packs/Day Years Used Date Smoking Tobacco: Never Smokeless Tobacco: Never Alcohol Use Standard Drinks/Week Comments Yes 1.7 (1 standard drink = 0.6 oz p ure alcohol) 1-2 week Financial Resource Strain Answer Date R ecorded Overall Financial Strain 99 019 Skipped Doctor's Visit 3 9 Skipped Medication due to cost 3 0 12/18/2018 Utility Shut-offs 3 12/18/2018 Comments No Sex and Gender Information Value Date Recorded Sex Assigned at Not on file Legal Sex Female 12:01 AM CDT Gender Identity Not on file Sexual Orientation Not on file Last Filed Vital Signs Vital Sign Reading Time Taken Comments Blood Pressure 124/90 04/14/2013 1:28 PM CDT right large adult Pulse 74 04/14/2013 1:28 PM CDT Temperature 37.1 C (98.7 F) 10/04/2012 4:28 PM CDT Respiratory Rate 16 12/22/2012 3:18 PM CDT Oxygen Saturation 98% 06/27/2010 2:3 1 PM CUSTOMER SERVICE SALES CONSULTANT Inhaled Oxygen Concentration - - Weight 115.3 kg (254 lb 3.2 oz) 04/14/2013 1:28 PM CDT Height 167.6 cm (5' 6) 06/16/2012 1:32 PM CUSTOMER SERVICE SALES CONSULTANT Body Mass Index 41.03 06/16/2012 1:32 PM CUSTOMER SERVICE SALES CONSULTANT Plan of Treatment Not on file Procedures Procedure Name Priority Date/Time Associated Diagnosis Comments CYTOLOGY, PAP SCREEN ONE SLIDE Routine 04/21/2012 3:00 PM CDT Screening for cervical cancer LIPID PANEL, FASTING Routine 04/16/2012 9:04 AM CDT Preventative health care from Last 3 Months or Most Recently Relevant to Health Maintenance Results * CYTOLOGY, PAP SCREEN ONE SLIDE (04/21/2012 3:00 PM CDT) Specimen from unspecified body site (specimen) 04/21/2012 3:00 PM CDT 04/22/2012 10:12 AM CDT Narrative [facility] - 04/26/2012 8:30 AM CDT Patient: KIM HALEY [id number] Client CYTOLOGY REPORT SPECIMEN: [id number] SOURCE CERVICAL/ENDOCERVICAL CONVENTIONAL PAP : Received: 1 slide(s) intact. CLINICAL INFORMATION: LMP: 04/02/2012 Previous normal: 01/27/2008 ADEQUACY: Satisfactory for evaluation. Transformation zone component present. NARRATIVE DESCRIPTION: Negative for intraepithelial lesion or malignancy. Cervical cytology is a screening test with limited sensitivity. It is not a diagnostic procedure and should not be used as the sole means to detect cervical cancer, especially in patients with symptoms or an abnormal cervix. Regular screening is critical for cancer prevention. Cervical cytology tests are primarily effective for the diagnosis/prevention of squamous cell carcinoma, not adenocarcinoma or other malignancies. NIRMALA HART(ASCP) 04/26/2012 08:30 Report Electronically Signed (END OF REPORT) us Luzma Borjas MD ([facility]) [facility] Final Result Performing Organization Address City/State/[facility] Co de Phone Number [facility] [address] [place] [address] [address] [place] [address] * (ABNORMAL) LIPID PANEL (04/16/2012 9:04 AM CDT) Cholesterol 215(H) <=199 mg/dL 04/16/2012 4:44 PM CDT [facility] Triglycerides 93 <=149 mg/dL 04/16/2012 4:44 PM CDT [facility] HDL Cholesterol 39(L) >=40 mg/dL 2 4:44 PM CDT [facility] LDL, Calculated 157(H) <=129 mg/dL 04/16/2012 4:44 PM T [facility] Cholesterol/HDL Ratio 5.5(H) 1.0 - 4.5 04/16/2012 4:44 PM T [facility] Blood specimen (specimen) 04/16/2012 9:04 AM CDT 04/16/2012 9:04 AM CDT Narrative [facility] - 04/16/2012 4:44 PM CDT NCEP ATP - III Guidelines for Cholesterol, Total: Desirable: <200 mg/dL Borderline: 200-239 mg/dL High: >=240 mg/dL NCEP ATP - III Guidelines for Triglycerides: Normal: <150 mg/dL Borderline High: 150-199 mg/dL High: 200-499 mg/dL Very High: >=500 mg/dL NCEP ATP - III Guidelines for HDL Cholesterol: Low (increased cardiovascular risk) - <40 mg/dL High (decreased cardiovascular risk) - >60 mg/dL NCEP ATP - III Guidelines for LDL Cholesterol: Optimal: <100 mg/dL Near Optimal: 100-129 mg/dL Borderline High: 130-159 mg/dL High: 160-189 mg/dL Very High: >=190 mg/dL Luzma Borjas MD ([facility]) LABORATORY Final Result [facility] [address] [place] [phone] from Last 3 Months or Most Recently Relevant to Health Maintenance Care Teams Slab Lifting Supervisor Relationship Specialty Start Date End Date Lancep, No Pcp PCP - General 02/05/22
--- OUTSIDE RECORDS SUMMARY | 2025-04-05 19:16 | XMS_ITS | Encounter Summary ---
Author Organization [facility] Address [address] [place] [address] Care Team Providers Care Leather Goods I Assembler Name Role Phone Marco Antonio Figueroa MD Unavailable Russ Gaitan DPM Unavailable [phone] Baldev Bell MD Unavailable [phone] Liz Hernandez DC Unavailable [phone] Lary Delvalle DO Primary Care Provider [phone] Nicolasa Hackett PA-C Unavailable [phone] Destiney Adam DO Unavailable [phone] Reason for Visit * Reason Comments Refill Request Encounter Details Date Type Department Care Team (Late st Contact Info) Description 01/23/2025 Refill Primary Care [facility] - Family Medicine [address] [facility] [address] [place] [address] [place] [address] Refill Request Social History Tobacco Use Types Packs/Day Years Used Date Smoking Tobacco: Never Passive Smoke Exposure: Never Smokeless Tobacco: Never Alcohol Use Standard Drinks/Week Comments Not Currently 0 (1 standard drink = 0.6 oz pur e alcohol) [facility] Utilities Answer Date Recorded In the past [...] phone, visiting friends or family, going to islam or club meetings) 5 or more times [...] of Assessment Author Yes 12/12/2024 6:41 AM GUANAKOT Susan Thomson RN * Do you have [...] Susan Thomson RN documented in this encounter Ordered Prescriptions Prescription Sig Dispense Quantity Refills Last Filled Start Date End Date amitriptyline (ELAVIL) 25 MG tablet Take 1 tablet by mouth nightly. 90 tablet 1 01/23/2025 3:57 PM CDT 01/23/2025 documented in this encounter Miscellaneous Notes * Telephone Encounter - Joanie Flores CMA - 01/23/2025 5:41 AM CDT Medication passed protocol. Medication: amitriptyline 25mg passed protocol. Last office visit date: 12/29/24 Next appointment scheduled?: Yes documented in this encounter Plan of Treatment Upcoming Encounters Date Type Department Care Team (Late st Contact Info) Description 04/10/2025 8:15 AM CDT Lab Services [facility] - [facility]fin [facility] [address] [place] [address] [place] [phone] 04/11/2025 11:20 AM CDT Office Visit Primary Care Virtual - Family Medicine [address] [place] [phone] [place] [address] [place] [address] 07/13/2025 2:45 PM ENTEROSTOMAL NURSE Office Visit [facility] [place] [address] [place] [phone] Jack Schuler DO [address] [place] [address] documented as of this encounter Visit Diagnoses Not on filedocumented in this encounter Discontinued Medications Medication Sig Discontinue Reason Start Date End Da te amitriptyline (ELAVIL) 25 MG tablet Take 1 tablet by mouth nightly. Reorder 10/24/2024 01/23/2025 documented as of this encounter Additional Health Concerns Infection Onset Date Last Indicated Resolved Time C. difficile (rule out) 01/22/2025 01/23/202512/27 3:43 PM CDT Assessment Noted Time PHQ-9 Depression Total Score: 13 025 5:37 PM CDT A Body Mass Index follow-up plan has been documented for the patient 06/17/2023 10:39 AM ENTEROSTOMAL NURSE documented as of this encounter Care Teams Leather Goods I Assembler Relationship Specialty Start Date End Date Lary Delvalle DO [address] [place] [address] PCP - General Family Practice 09/06/24 Marco Antonio Figueroa MD [address] [place], [place] [address] Referring Provider Neurology 04/22/22 Russ Gaitan DPM [address] [place], [place] [phone] Referring Provider Podiatry - Foot & Ankle Surgery 04/22/22 [place] [address] [place], [place] [phone] Referring Provider Orthopaedic Surgery- Adult Reconstructive Orthopaedic Surgery 04/22/22 [place] [address] [address] [place], [place] [phone] Chiropractic 04/22/22 Nicolasa Hackett PA-C [facility] [address] [place] [address] Referring Provider Physician Kindergartners Helper - Surgery 11/14/24 Destiney Adam DO [address] [facility] [place] [address] Orthopedic Surgery 11/14/24 documented as of this encounter
--- OUTSIDE RECORDS SUMMARY | 2025-04-05 19:16 | XMS_ITS | Clinical Summary ---
Author Organization [facility] [place] [address] Care Team Providers Care Eligibility Technician Name Role Phone Uwnopcp, No Pcp Primary Care Provider Unavailabl e Source Comments The [facility] EMR consists of medical records from all [facility] ([facility]), the [facility]. ([facility]), [facility], as well as other affiliates or partners, to include: [facility] [place], [place], [facility] Hospice Care, [facility] Fertility Care, [facility], [facility] Aesthetics and Plastic Surgery, [facility], [facility]), [facility], and [facility]. The EMR may not contain all information available for this patient pursuant to the Care Everywhere program, as well as varying phases of implementation.[facility] and [facility] Allergies No known active allergies Medications * [...] time daily. 3 Bottle 3 3 Active fluticasone-andrye meterol (ADVAIR DISKUS) 250-50 MCG/DOSE inhaler Inhale [...] Pertussis (Tdap) Vaccine (> 7 Yrs) 12/14/2007 Family History Medical History Relation Name Comments Allergies/Asthma Father CHD/CAD/TX Father Diabetes Mellitus Father Thyroid Disease Father CHD/CAD/TX Maternal Grandfather Hyperlipidemia Maternal Grandfather Hypertension Maternal Grandfather CHD/CAD/TX Maternal Grandmother Dementia Maternal Grandmother Diabetes Mellitus Maternal Grandmother Hypertension Maternal Grandmother Anxiety Mother CHD/CAD/TX Mother s/p stent, pace maker Depression Mother Hyperlipidemia Mother Hypertension Mother Osteoporosis Mother Cancer Colon Paternal Aunt Diabetes Mellitus Paternal Aunt CHD/CAD/TX Paternal Grandfather Cancer (not otherwise listed) Paternal Grandfather lung cancer CHD/CAD/TX Paternal Grandmother Hyperlipidemia Paternal Grandmother Relation Name Status Comments Brother Carlos Alberto Alive Father Maternal Grandfather Maternal Grandmother Mother Alive Paternal Aunt Paternal Grandfather Paternal Grandmother Social History Tobacco Use Types Packs/Day Years [...] Oxygen Saturation 98% 06/27/2010 2:3 1 PM BUHR MILL OPERATOR Inhaled Oxygen Concentration - - Weight 115.3 kg (254 lb 3.2 oz) 04/14/2013 1:28 PM CDT Height 167.6 cm (5' 6) 06/16/2012 1:32 PM BUHR MILL OPERATOR Body Mass Index 41.03 06/16/2012 1:32 PM BUHR MILL OPERATOR Plan of Treatment Health Maintenance Due Date Last Done Comments MMR Vaccination (1 of 1 - Standard series) 1981 Hepatitis B Vaccination (1 o f 3 - 19+ 3-dose series) 1999 HPV/Cotest 2010 Cervical Cancer Screening 04/21/2015 Pap Smear 04/21/2015 04/21/2012, 01/27/2008 Lipid Screening 04/16/2017 04/16/2012 Mammogram 2020 DTaP/Tdap/Td Vaccination (3 - Td or Tdap) 09/28/2022 09/28/2012, 12/14/2007 Influenza Vaccination (#1) 2025 Zoster Vaccination (1 of 2) 2030 RSV Vaccination ( o r age 60+) (1 - 1-dose 75+ series) 2055 HPV Vaccination Aged Out No longer el igible based on patient's age to complete this topic Hepatitis A Vaccination Aged Out No l onger eligible based on patient's age to complete this topic Hib Vaccination Aged Out No longer el igible based on patient's age to complete this topic Meningococcal (MCV4) Vaccination Aged Out No longer eligible b ased on patient's age to complete this topic Meningococcal B Vaccination Aged Out No longer eligible based on patient's age to complete this topic Pneumococcal Vaccination: Pediatrics and At-Risk Patients Aged Out No longer eligible b ased on patient's age to complete this topic Polio Vaccination Aged Out No longer eligible based on patient's age to complete this topic Procedures Procedure Name Priority Date/Time Associated Diagnosis [...] 3:00 PM CDT 04/22/2012 10:12 AM CDT [facility] - 04/26/2012 8:30 AM CDT Patient: KIM HALEY [id number] Client CYTOLOGY REPORT SPECIMEN: [id number] SOURCE CERVICAL/ENDOCERVICAL CONVENTIONAL PAP : Received: 1 [...] 08:30 Report Electronically Signed (END OF REPORT) Luzma Borjas MD ([facility]) [facility] Final Result [facility] [address] [place] [address], [address] [place], [place] [id number] * (ABNORMAL) LIPID PANEL (04/16/2012 9:04 AM CDT) Cholesterol 215(H) <=199 mg/dL 04/16/2012 4:44 PM CDT [facility] Triglycerides 93 <=149 mg/dL 04/16/2012 4:44 PM CDT [facility] HDL Cholesterol 39(L) >=40 mg/dL 2 4:44 PM CDT [facility] LDL, Calculated 157(H) <=129 mg/dL 04/16/2012 4:44 PM T [facility] Cholesterol/HDL Ratio 5.5(H) 1.0 - 4.5 04/16/2012 4:44 PM T [facility] Blood specimen (specimen) 04/16/2012 9:04 AM CDT 04/16/2012 9:04 AM CDT Narrative [facility] - 04/16/2012 4:44 PM [...] High: 160-189 mg/dL Very High: >=190 mg/dL us Luzma Borjas MD (Holly) LABORATORY Final Result [facility] [address] [place] [phone] from Last 3 Months or Most Recently Relevant to Health Maintenance Care Teams Eligibility Technician Relationship Specialty Start Date End Date Josenopcp, No Pcp PCP - General 02/05/22
--- OUTSIDE RECORDS SUMMARY | 2025-04-05 19:17 | XMS_ITS | Clinical Summary ---
Author Organization [facility] Address [address] [place] [address] Care Team Providers Care Digital Media Specialist Name Role Phone AdeliaLayr leavitt Shari MURDOCK Primary Care Provider [phone] Allergies No known active allergies Medications sulfamethoxazo le-trimethopri m (BACTRIM DS) 800-160 mg oral tabletIndicati ons:Pyelonephr itis Take 1 tablet by mouth twice daily. Indications: Pyelonephritis 20 tablet 06/06/2024 5:40 PM TIP FINISHER Active Social History Tobacco Use Types Packs/Day Years Used Date Smoking Tobacco: Never Assessed B1300 Health Literacy Answer Date Recor ded How often do you need to hav e someone help you when you read instructions, pamphlets, or other written material from your doctor or pharmacy? Never 06/06/2024 [facility] Utilities Answer Date Recorded In the past [address] [facility], [facility], or water [place] threatened to shut off services in your home? Yes 06/06/2024 Humiliation, Afraid, Rape, and Kick questionnair e Answer Date Recorded Within the last year, have y ou been afraid of your partner or ex-partner? No 06/06/2024 Within the last year, have y ou been humiliated or emotionally abused in other ways by your partner or ex-partner? No Within the last year, have y ou been kicked, hit, slapped, or otherwise physically hurt by your partner or ex-partner? No 06/06/2024 Within the last year, have y ou been raped or forced to have any kind of sexual activity by your partner or ex-partner? No 06/06/2024 Social Connection and Isolation Panel [NHANES] A nswer Date Recorded In a typical week, how many times do you talk on the phone with family, friends, or neighbors? Once a week 06/06/20 How often do you get togethe r with friends or relatives? Never 06/06/2024 How often do you attend chur or druze services? 1 to 4 times per year 06/06/2024 Do you belong to any clubs o r organizations such as jain groups, unions, fraternal or athletic groups, or school groups? Patient declined 06/06/2024 How often do you attend meet ings of the clubs or organizations you belong to? Patient declined 06/06/2024 Are you , , di vorced, , never , or living with a partner? 06/06/2024 Overall Financial Resource Strain (CARDIA) Answe r Date Recorded How hard is it for you to pa y for the very basics like food, housing, medical care, and heating? Somewhat hard 06/06/2024 [facility] [place] [facility] Occup[facility] ional [facility] - Occupational Stress Questionnaire Answer Date Recorded Do you feel stress - tense, restless, nervous, or anxious, or unable to sleep at night because your mind is troubled all the time - these days? Rather much 06/06/2024 Exercise Vital Sign Answer Date Recorde d On average, how many days pe r week do you engage in moderate to strenuous exercise (like a brisk walk)? 2 days 06/06/2024 On average, how many minutes do you engage in exercise at this level? 20 min 06/06/2024 Hunger Vital Sign Answer Date Recorded Within the past 12 months, y ou worried that your food would run out before you got the money to buy more. Sometimes true Within the past 12 months, t he food you bought just didn't last and you didn't have money to get more. Sometimes true 05/2024 PRAPARE - Transportation Answer Date Re corded In the past 12 months, has l ack of transportation kept you from medical appointments or from getting medications? No 05/27 In the past 12 months, has l ack of transportation kept you from meetings, work, or from getting things needed for daily living? Yes 06/06/2024 Housing Stability Vital Sign Answer Cullen e Recorded In the last 12 months, was t here a time when you were not able to pay the mortgage or rent on time? Yes 06/06/2024 In the past 12 months, how m any times have you moved where you were living? 0 06/06/2024 At any time in the past 12 m [facility], were you homeless or living in a halfway (including now)? No 06/06/2024 Alcohol Use Answer Date Recorded Q1: How often do you have a drink containing alc ohol? Monthly or less 06/06/2024 Q2: How many drinks containi ng alcohol do you have on a typical day when you are drinking? 1 or 2 06/06/2024 Q3: How often do you have si x or more drinks on one occasion? Less than monthly 06/06/2024 Depression Answer Date Recorded PHQ-2 Score 0 06/06/2024 PHQ-9 Score Not on file 06/06/2024 PHQ-9M Score Not on file 06/06/2024 Comments Unknown Sex and Gender Information Value Date Recorded Sex Assigned at Not on file Legal Sex Female 9:16 AM TIP FINISHER Gender Identity Not on file Sexual Orientation Not on file Last Filed Vital Signs Vital Sign Reading Time Taken Comments Blood Pressure 131/69 06/06/2024 5:15 PM TIP FINISHER Pulse 84 06/06/2024 5:15 PM TIP FINISHER Temperature 36.7 C (98.1 F) 06/06/2024 11:26 AM TIP FINISHER Respiratory Rate 18 06/06/2024 5:15 PM TIP FINISHER Oxygen Saturation - - Inhaled Oxygen Concentration - - Weight 102.1 kg (225 lb) 06/06/2024 11:26 AM TIP FINISHER Height 167.6 cm (5' 6) 06/06/2024 11:26 AM TIP FINISHER Body Mass Index 36.32 06/06/2024 11:26 AM TIP FINISHER Plan of Treatment Health Maintenance Due Date Last Done Comments Hep C Screening 1980 Hep B (1 of 3 - 19+ 3-dose series) 1999 Cervical Cancer Screening PAP 04/21/2015 04/21/2012 Breast Cancer Screening (Mammo) 05/27/2023 05/27/2022, 05/27/2022 Flu 6M+ (#1) 02/24/2025 06/17/2023, 12/0 01/2022, 06/01/2020, Additional history exists COVID-19 Vaccine ( - 2024- season) 2025 06/17/2023, 06/05/2022, 07/30/2021, Additional history exists DTaP/Tdap/Td/Tetanus (5 - Td or Tdap) 06/01/2029 06/01/2019, 09/28/2012, 12/14/2007, Additional history exists Pneumococcal 0-50 Aged Out 12/16/2023 No longer eligible based on patient's age to complete this topic HPV (No Doses Required) Completed Insurance [facility] [id number] [place] [address] Care Teams Digital Media Specialist Relationship Specialty Start Date End Date Lary Delvalle DO [address] [id number] PCP - General Family Medicine 06/06/24
--- OUTSIDE RECORDS SUMMARY | 2025-04-05 19:17 | XMS_ITS | Encounter Summary ---
Author Organization [facility] Address [address] [address] Care Team Providers Care Food Cart Attendant Name Role Phone Bethany Hyman APSAM-TRUCK MANAGER Primary Care Provide r Bethany Hyman APNP-TRUCK MANAGER Primary Care Provide r Cheryl Tariq APNP-TRUCK MANAGER Primary Care Provider [phone] Cheryl Tariq APNP-TRUCK MANAGER Unavailable [phone] Cheryl Tariq APNP-TRUCK MANAGER Unavailable [phone] Lary Delvalle DO Primary Care Provider [phone] Reason for Visit * Reason Onset Date Comments MEDICATION REFILL 10/21/2019 Encounter Details Date Type Department Care Team (Late st Contact Info) Description 10/21/2019 Telephone [facility] [address] [place] [address] Unknown, Provider MEDICATION REFILL Social History Tobacco Use Types Packs/Day Years Used Date Smoking Tobacco: Never Alcohol Use Standard Drinks/Week Comments Yes 3 (1 standard drink = 0.6 oz pur e alcohol) monthly Comments Unknown Sex and Gender Information Value Date Recorded Sex Assigned at Not on file Legal Sex Female 4:03 AM CDT Gender Identity Not on file Sexual Orientation Not on file COVID-19 Exposure Response Date Recorded In the last month, have you been in contact with someone who was confirmed or suspected to have Coronavirus / COVID-19? No / Unsure 10/24/2019 12:04 PM CDT documented as of this encounter Miscellaneous Notes * Telephone Encounter - Monica Roper, GINGER - 10/21/2019 10:22 AM CDT Schedule with Cheryl rucker available. * Telephone Encounter - Kelly Campos) - 10/21/2019 10:06 AM CDT Patient was an employee of [employer] no longer working there was given BP medication prior to leaving company has PCP and needs medication fu to make sure it is working could this be done over telephoneand set up a physical to est after the clear of Vocid with one of our providers. Last appt was 09/02/2019 with Bethany Martini at [facility] usually a month fu after new med was started. So if we could do Tele visit demetrio. Call patient to schedule. documented in this encounter Plan of Treatment Not on file documented as of this encounter Visit Diagnoses Not on filedocumented in this encounter Additional Health Concerns Infection Onset Date Last Indicated Resolved Time COVID-19 Under Investigation 09/16/2022 09/16/2022 09/16/2022 9:26 PM SENIOR FINANCIAL documented as of this encounter Care Teams Food Cart Attendant Relationship Specialty Start Date End Date Bethany Hyman APNP-CNP [address] [place] [address] PCP - General Nurse Practitioner Family 10/03/19 10/23/19 Bethany Hyman APNP-CNP [address] [place] [address] PCP - General Nurse Practitioner Family 01/25/20 05/27/20 Cheryl Tariq APNP-CNP [address] [place] [address] PCP - General Nurse Practitioner Occupational Health 05/28/20 05/16/22 Cheryl Tariq APNP-CNP [address] [address] PCP - Attributed-[facility] Commercial GFDL 08/27/20 01/09/22 Cheryl Tariq APNP-CNP [address] [place] [address] PCP - Attributed-[facility] [employer] 05/27/21 03/13/23 Lary Delvalle DO [address] [facility] [address] PCP - General Family Medicine 05/17/22 documented as of this encounter
--- OUTSIDE RECORDS SUMMARY | 2025-04-05 19:17 | XMS_ITS | Clinical Summary ---
Author Organization [facility] Address [address] [place] [address] Care Team Providers Care Dinner Cook Name Role Phone AdeliaMustaphaie Shari MURDOCK Primary Care Provider [phone] Source Comments [facility],non-owned Affiliates and Associated Physician Practices is amultiple site organization consisting of ambulatory clinics and hospital sitesin [place], [place], [place] and [place]. This disclosure is being madepursuant to the Care Everywhere program and may not contain all information available regarding this patient. Last updated 18.[facility] Allergies Active Allergy Reactions Criticality Noted Date Comments Amoxicillin-Pot Clavulanate Rash Medium 08/15/2022 Cat Hair Extract Other Medium 11/27/2017 Has A Cat, Asthma Attack Dog Epithelium Other Medium 04/11/2014 Asthma Attack Dust Mite Extract Other Medium 06/27/2010 Asthma Attack Escitalopram Anaphylaxis,Rash High 07/15/2019 Seasonal Other Medium 04/11/2014 Asthma Attack Sertraline Psychiatric Medium 07/27/2018 Medications * Be aware that medications may not be up to date on this document. Alwaysverify current medications with the patient. fluticasone propionate (FLONASE) 50 MCG/ACT nasal spray [place] 2 (two) sprays into the nose 3 Active fluticasone-sa lmeterol (ADVAIR/WIXELA ) 250-50 MCG/DOSE inhaler 1 puff 3 Active fexofenadine (LAYNE) 180 MG tablet 1 tablet as needed 1 Active blood glucose test strip Test blood sugar daily 2 Active albuterol HFA (PROAIR HFA) 108 (90 Base) MCG/ACT inhaler Take 2 puffs by mouth as needed 1 Inhaler 2 0 Active vitamin D, ergocalciferol , (DRISDOL) 1.25 MG (40299 UT) capsuleIndicat ions:Vitamin D deficiency TAKE 1 CAPSULE BY MOUTH EVERY WEEK 12 capsule 1 1 Active lidocaine (LIDODERM) 5 % patch Apply 1 (one) patch to skin once daily 7 patch 1 Active semaglutide (OZEMPIC, 0.25 OR 0.5 MG/DOSE,) 2 MG/1.5ML pen Inject 0.5 (one-half) mg subcutaneously every 7 days 4.5 mL 5 1 Active diclofenac sodium EC (VOLTAREN) 75 MG tablet 1 Active atorvastatin (LIPITOR) 40 MG tablet Take 1 (one) tablet by mouth once daily 90 tablet 2 2 Active metFORMIN (GLUCOPHAGE) 500 MG tablet TAKE 2 TABLETS BY MOUTH TWICE DAILY WITH THE MORNING AND EVENING MEAL 360 tablet 2 Active amitriptyline (ELAVIL) 50 MG tabletIndicati ons:Migraine Take 1 (one) tablet by mouth every evening Reasons: Migraine Headache 90 tablet 3 2 Active DULoxetine (Cymbalta) 60 MG capsule Take 1 (one) capsule by mouth once daily 2 Active rimegepant (Nurtec ODT) 75 MG tablet Take 75 mg by mouth once daily as needed for Migraine Active amLODIPine (Norvasc) 5 MG tablet Take 1 (one) tablet by mouth once daily Active Phenylephrine- Witch Anita (Preparation H) 0.25-50 % GEL 1 strip by Apply externally route 4 times daily 25 g 3 Active Active Problems Problem Noted Date Diagnosed Date Migraine without aura and wi thout status migrainosus, not intractable 07/10/2022 Numbness and tingling 05/17/2022 Heterophoria, 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 (FLUCELVAX QUADRIVALENT; 6MO+) (CCIIV4) 06/01/2020 TD VACCINE 01/08/1996 TDAP (7yrs+) 06/01/2019,09/28/2012,12/14/2007 Family History Medical History Relation Name Comments None Known Brother CAD (Coronary Artery Disease) Father Diabetes; unknown type Father Other - Cardiac Maternal Grandfather Pace maker Diabetes; unknown type Maternal Grandmother CAD (Coronary Artery Disease) Mother Diabetes; unknown type Mother Cancer - Lung Paternal Grandfather None Known Paternal Grandmother Relation Name Status Comments Brother Alive Father Maternal Grandfather Maternal Grandmother Mother Alive Paternal Grandfather Paternal Grandmother Social History Tobacco Use Types Packs/Day Years Used Date Smoking Tobacco: Never Smokeless Tobacco: Never Tobacco Cessation:Counseling Given: Not Answered Alcohol Use Standard Drinks/Week Comments Yes 3 (1 standard drink = 0.6 oz pur e alcohol) Monthly PHQ-2 Answer Date Recorded PHQ2 TOTAL SCORE 1 05/19/2022 Hunger Vital Sign Answer Date Recorded Within the past 12 months, y ou worried that your food would run out before you got the money to buy more. Never true 05/18/20 22 Within the past 12 months, t he food you bought just didn't last and you didn't have money to get more. Never true 05/18/2022 Comments Unknown Sex and Gender Information Value Date Recorded Sex Assigned at Not on file Legal Sex Female 4:03 AM CDT Gender Identity Not on file Sexual Orientation Not on file Last Filed Vital Signs Vital Sign Reading Time Taken Comments Blood Pressure 147/96 09/16/2022 10:04 PM TIMBER HEWER Pulse 103 09/16/2022 10:04 PM TIMBER HEWER Temperature 36.9 C (98.5 F) 09/16/2022 8:12 PM TIMBER HEWER Respiratory Rate 18 09/16/2022 10:04 PM TIMBER HEWER Oxygen Saturation 95% 09/16/2022 10:04 PM TIMBER HEWER Inhaled Oxygen Concentration - - Weight 108.9 kg (240 lb) 09/16/2022 8:12 PM TIMBER HEWER Height 165.1 cm (5' 5) 09/16/2022 8:12 PM TIMBER HEWER Body Mass Index 39.94 09/16/2022 8:12 PM TIMBER HEWER Plan of Treatment Health Maintenance Due Date Last Done Comments HPV VACCINE (1 - 3-dose SCDM series) 2007 DIABETES-FOOT EXAM WITH MONOFILAMENT 02/25/2022 02/25/2021, 02/25/2021 DIABETES RETINOPATHY SCREENING 12/19/2023 12/18/2021, 12/18/2021, 12/18/2021 MAMMOGRAM 05/27/2024 05/27/2022 PAP with HPV 07/15/2024 07/15/2019 DEPRESSION SCREENING 07/27/2024 11/11/2021 DIABETES - URINE PROTEIN SCREENING 07/27/2024 06/16/2024, 08/28/2022, 11/24/2019, Additional history exists DIABETES-HGB A1C 12/14/2024 06/16/2024, , 08/28/2022, Additional history exists COVID-19 VACCINE (5 - 2024- season) 2025 06/05/2022, 07/30/2021, 11/02/2020, Additional history exists INFLUENZA VACCINE (#1) 2025 4, 06/17/2023, 07/02/2022, Additional history exists DIABETES-SERUM CREATININE 06/19/20252023, 06/19/2024, 06/16/2024, Additional history exists DTAP/TDAP/TD VACCINES (5 - Td or Tdap) 06/01/2029 06/01/2019, 09/28/2012, 12/14/2007, Additional history exists ZOSTER VACCINE (1 of 2) 2030 HEPATITIS B VACCINE Discontinued HEPATITIS C SCREENING Discontinued HIB VACCINE Aged Out No longer eligi ble based on patient's age to complete this topic HIV SCREENING Discontinued MENINGOCOCCAL (Group B) VACCINE SHARED DECISION-MAKING Aged Out No longer eligible based on patient's age to complete this topic MENINGOCOCCAL GROUPS A/C/Y/W VACCINE Aged Out No longer eligible based on patient's age to complete this topic PNEUMOCOCCAL VACCINE Discontinued Procedures Procedure Name Priority Date/Time Associated Diagnosis Comments BASIC METABOLIC PANEL (CALCIUM TOTAL) AM Draw 05/19/2022 5:13 AM CDT Pleuritic chest pain HEMOGLOBIN A1C Routine 05/18/2022 6:09 AM CDT Chest pain, unspecified type Numbness and tingling Hyperglycemia MICROALB/CREAT RATIO URINE RANDOM PANEL Routine 11/24/2019 6:29 AM CDT Essential hypertension Type 2 diabetes mellitus without complication, without long-term current use of insulin HPV PANEL Routine 07/15/2019 7:34 PM TIMBER HEWER from Last 3 Months or Most Recently Relevant to Health Maintenance Results * (ABNORMAL) BASIC METABOLIC PANEL (CALCIUM TOTAL) (05/19/2022 5:13 AM CDT) Sodium 137 135 - 143 mEq/L 05/19/2022 6:15 AM CDT [facility] Potassium 3.9 3.5 - 4.9 mEq/L 05/19/2022 6:15 AM CDT [facility] Chloride 106 100 - 109 mEq/L 05/19/2022 6:15 AM CDT [facility] CO2 26 23 - 31 mEq/L 05/19/2022 6:15 AM CDT [facility] Anion Gap 9 6 - 16 05/19/2022 6:15 AM CDT [facility] Glucose 144(H) 74 - 99 mg/dL 05/19/2022 6:15 AM CDT [facility] BUN 7 6 - 21 mg/dL 05/19/2022 6:15 AM CDT [facility] Creatinine 0.50 0.44 - 1.03 mg/dL 05/19/2022 6:15 AM CDT [facility] BUN/Creatinine Ratio 05/19/2022 6:15 AM CDT [facility] Comment:Ratio not reported w hen BUN is normal. Calcium 8.7 8.6 - 10.3 mg/dL 05/19/2022 6:15 AM CDT [facility] eGFR 120 >=90 05/19/2022 6:15 AM CDT [facility] Comment: GFR Reference Range Interpretation (ml/min/1.73 m(2)) >=90 Stage 1: Normal GFR 60-89 Stage 2: Mild decrease in GFR 45-59 Stage 3a: Mild to moderate decrease in GFR 30-44 Stage 3b: Moderate to severe decrease in GFR 15-29 Stage 4: Severely decreased GFR <15 Stage 5: Kidney failure not on dialysis The eGFR result was calculated using the updated CKD-EPI Creatinine Equation (2020). Blood BLOOD SPECIMEN / Unknown Lab Venipuncture / Unknown 05/19/2022 5:13 AM CDT 05/19/2022 5:44 AM CDT us Aliya Singh MD LAB - CHEMISTRY ORDERABL ES Final Result [facility] [address] * (ABNORMAL) HEMOGLOBIN A1C (05/18/2022 6:09 AM CDT) Hemoglobin A1c 6.7(H) 4.0 - 5.6 % 05/18/2022 1:48 PM CDT [facility] Estimated Average Glucose 146 mg/dL 05/18/2022 1:48 PM CDT [facility] Blood BLOOD SPECIMEN / Unknown Lab Venipuncture / Unknown 05/18/2022 6:09 AM CDT 05/18/2022 6:31 AM CDT Narrative [facility] - 05/18/2022 1:48 PM CDT 5.7-6.4 Prediabetes >=6.5 Diabetes Hemoglobin A1c values >6.4% are diagnostic for diabetes mellitus. Diagnosis should be confirmed by repeat testing. In diabetic patients, Hemoglobin A1c goals should be discussed with healthcare provider. Alexi Baltazar MD LAB - CHEMISTRY ORDERABL ES Final Result [facility] [address] * MICROALB/CREAT RATIO URINE RANDOM PANEL (11/24/2019 6:29 AM CDT) Microalbumin Urine 2.48 No range mg/dL 11/24/2019 6:59 AM CDT [facility] Creatinine Random Urine 111 No range mg/dL 11/24/2019 6:59 AM CDT [facility] Microalbumin/Crea tinine Ratio 22.34 <=30 ug/mg ug/mg 11/24/2019 6:59 AM CDT [facility] Urine URINE SPECIMEN OBTAINED BY CLEAN CATCH PROCEDURE / Unknown Collection / Unknown 11/24/2019 6:29 AM CDT 11/24/2019 6:34 AM CDT us Cheryl Chandni [facility] - URINE CHEMISTRY ORDER TIERRA Final Result [facility] [address] * HPV PANEL (07/15/2019 7:34 PM TIMBER HEWER) Human papillomavirus Source CX,ENDCX, VAG Human papillomavirus High Risk Not detec. [facility] Comment: A negative result indicates the absence of the following high risk HPV genotypes: 16,18,31,33,35,39,45,51,52,56,58,59,66,68. Detection of high-risk HPV types can be associated with precancerous or cancerous changes in the cervix/vagina. The Aptima HPV assay is a target amplification nucleic acid probe test for the qualitative detection of E6/E7 viral messenger RNA from 14 high risk HPV types. The test is performed on cervical, endocervical, and vaginal specimens received in Cyty[facility] Thin-Prep Pap Test PreservCyt Solution. 07/15/2019 7:34 PM TIMBER HEWER us Bethany Hyman [facility] - MICROBIOLOGY OR DERABLES Final Result Performing Organization Address City/[facility] Co de Phone Number [facility] from Last 3 Months or Most Recently Relevant to Health Maintenance Insurance [id number] Advance Directives * Full Code (Latest Code Status on File) Date Activated Date Inactivated Comments 05/18/2022 12:33 AM 05/19/2022 5:54 PM Care Teams Dinner Cook Relationship Specialty Start Date End Date Lary Delvalle DO [address] [place] [id number] PCP - General Family Medicine 05/17/22
--- OUTSIDE RECORDS SUMMARY | 2025-04-05 19:17 | XMS_ITS | Encounter Summary ---
Author Organization [facility] Address [address] [place] [address] Care Team Providers Care Clinical Microbiologist Name Role Phone Luzma Borjas MD Primary Care Provider [phone] Bethany Hyman APNP-NEWSPAPER COLUMNIST Primary Care Provide r Bethany Hyman APNP-NEWSPAPER COLUMNIST Primary Care Provide r Cheryl Tariq APNP-NEWSPAPER COLUMNIST Primary Care Provider [phone] Cheryl Tariq APNP-NEWSPAPER COLUMNIST Unavailable [phone] Cheryl Tariq APNP-NEWSPAPER COLUMNIST Unavailable [phone] Lary Delvalle DO Primary Care Provider [phone] Encounter Details Date Type Department Care Team (Late st Contact Info) Description 07/22/2019 Orders Historic [place] GENERIC DEFAULT Provider, MD Ori Social History Tobacco Use Types Packs/Day Years Used Date Smoking Tobacco: Never Alcohol Use Standard Drinks/Week Comments Yes 0 (1 standard drink = 0.6 oz pur e alcohol) Comments Unknown Sex and Gender Information Value Date Recorded Sex Assigned at Not on file Legal Sex Female 4:03 AM CDT Gender Identity Not on file Sexual Orientation Not on file documented as of this encounter Plan of Treatment Not on file documented as of this encounter Procedures Procedure Name Priority Date/Time Associated Diagnosis Comments CARDIAC EKG ORDER 07/22/2019 documented in this encounter Results * CARDIAC EKG ORDER (07/22/2019) Narrative 07/22/2019 Ordered by an unspecified provider. us Historical Provider CARDIAC SERVICES ORDERABL ES Final Result documented in this encounter Visit Diagnoses Not on filedocumented in this encounter Additional Health Concerns Infection Onset Date Last Indicated Resolved Time COVID-19 Under Investigation 09/16/2022 09/16/2022 09/16/2022 9:26 PM AGING BOX HAND documented as of this encounter Care Teams Clinical Microbiologist Relationship Specialty Start Date End Date Luzma Borjas MD [address] [place] [address] PCP - General 06/09/19 10/02/19 Bethany Hyman APNP-CNP [address] [place] [address] PCP - General Nurse Practitioner Family 10/03/19 10/23/19 Bethany Hyman APNP-CNP [address] [place] [address] PCP - General Nurse Practitioner Family 01/25/20 05/27/20 Cheryl Tariq APNP-CNP [address] [place] [address] PCP - General Nurse Practitioner Occupational Health 05/28/20 05/16/22 Cheryl Tariq APNP-CNP [address] [facility] [address] [place] [address] PCP - Attributed-[facility] Commercial GFDL 08/27/20 01/09/22 Cheryl Tariq APNP-CNP [address] [facility] [address] [place] [address] PCP - Attributed-[employer] Commercial GFDL 05/27/21 03/13/23 Lary Delvalle DO [address] [place] [address] PCP - General Family Medicine 05/17/22 documented as of this encounter
--- OUTSIDE RECORDS SUMMARY | 2025-04-05 19:17 | XMS_ITS | Encounter Summary ---
Author Organization [facility] Address [address] [place] [address] Care Team Providers Care Transcriber Name Role Phone Marco Antonio Figueroa MD Unavailable Russ Gaitan DPM Unavailable [phone] Baldev Bell MD Unavailable [phone] Liz Hernandez DC Unavailable [phone] Lary Delvalle DO Primary Care Provider [phone] Nicolasa Hackett PA-C Unavailable [phone] Destiney Adam DO Unavailable [phone] Reason for Visit * Reason Comments Triage Encounter Details Date Type Department Care Team (Late st Contact Info) Description 04/03/2025 Telephone [facility] [address] [place] [address] Yanique Benson MD [address] [facility] [place] [address] Triage Social History Tobacco Use Types Packs/Day Years Used Date Smoking Tobacco: Never Passive Smoke Exposure: Never Smokeless Tobacco: Never Alcohol Use Standard Drinks/Week Comments Not Currently 0 (1 standard drink = 0.6 oz pur e alcohol) [facility] Utilities Answer Date Recorded In the past 12 months has th e electric, gas, oil, or water [employer] threatened to shut off services in your home? No 12/14/2024 PHQ-2 Answer Date Recorded Initial depression screening score: 3 12/27/2024 Social Connections Answer Date Recorded How often do you see or talk to people that you care about and feel close to? (For example: talking to friends on the phone, visiting friends or family, going to sabianism or club meetings) 5 or more times [...] Susan Gutierrez RN documented in this encounter Miscellaneous Notes * Telephone Encounter - Adele Licona MA - 04/03/2025 11:46 AM CDT Please schedule patient with: Dr. Correa, Dr. Santos, or Dr. Crowell (Non-Surgical/Non-Operative Provider) At Location: Any Location Within: This week or next For problem of: Right knee ATTENTION: IF PATIENT CALLS PRIOR TO IN DEPARTMENT CLINICAL TRIAGE COMPLETION, PLEASE LET THE PATIENT KNOW THEIR CONCERN IS BEING HANDLED AND WE WILL BE CALLING THEM BACK IN A TIMELY MANNER. * Telephone Encounter - Candice Soria - 04/03/2025 7:41 AM CDT Date seen in ED/UC: 04/02 For problem of: Acute pain of right knee, Hematoma of right lower leg (Diagnosis from referral) Please triage and route back for scheduling. (P OSW ORTHO SCHED SCRUM PROJECT MANAGER ILG CAMARILLO [phone]) ATTENTION: IF PATIENT CALLS PRIOR TO IN DEPARTMENT CLINICAL TRIAGE COMPLETION, PLEASE LET THE PATIENT KNOW THEIR CONCERN IS BEING HANDLED AND WE WILL BE CALLING THEM BACK IN A TIMELY MANNER. documented in this encounter Plan of Treatment Upcoming Encounters Date Type Department Care Team (Late st Contact Info) Description 04/10/2025 8:15 AM CDT Lab Services ACL Lab - [address] [place] [address] [place] [address] [place] [id number] 04/11/2025 11:20 AM CDT Office Visit Primary Care Virtual - Family Medicine [address] [place] [phone] [place] [address] [place], [place] [id number] 07/13/2025 2:45 PM SKIVER BLOCKERS Office Visit [facility] [place] [address] [place] [id number] Jack Schuler DO [address] [place] [address] documented as of this encounter Visit Diagnoses Not on filedocumented in this encounter Additional Health Concerns Assessment Noted Time PHQ-9 Depression Total Score: 13 12/27/ 025 5:37 PM CDT A Body Mass Index follow-up plan has been documented for the patient 06/17/2023 10:39 AM SKIVER BLOCKERS documented as of this encounter Care Teams Transcriber Relationship Specialty Start Date End Date Lary Delvalle DO [address] [place] [address] PCP - General Family Practice 09/06/24 Marco Antonio Figueroa MD [address] [place] [address] Referring Provider Neurology 04/22/22 Russ Gaitan DPM [address] [place] [address] Referring Provider Podiatry - Foot & Ankle Surgery 04/22/22 [place] [address] [place] [address] Referring Provider Orthopaedic Surgery- Adult Reconstructive Orthopaedic Surgery 04/22/22 [place] [address] [address] [place], [place] [id number] Chiropractic 04/22/22 Nicolasa Hackett PA-C [facility] Q[address]88 [place] [address] Referring Provider Physician Resaw Feeder - Surgery 11/14/24 Destiney Adam DO [address] [facility] [place] [address] Orthopedic Surgery 11/14/24 documented as of this encounter
--- OUTSIDE RECORDS SUMMARY | 2025-04-05 19:17 | XMS_ITS | Encounter Summary ---
Author Organization [facility] Address [address] [place] [address] Care Team Providers Care Booster Pump Operator Name Role Phone Luzma Borjas MD Primary Care Provider [phone] Bethany Hyman APNP-HOUSEKEEPING WORKER Primary Care Provide r Bethany Hyman APNP-HOUSEKEEPING WORKER Primary Care Provide r Cheryl Tariq APNP-HOUSEKEEPING WORKER Primary Care Provider [phone] Cheryl Tariq APNP-HOUSEKEEPING WORKER Unavailable [phone] Cheryl Tariq APNP-HOUSEKEEPING WORKER Unavailable [phone] Lary Delvalle DO Primary Care Provider [phone] Encounter Details Date Type Department Care Team (Late st Contact Info) Description 08/01/2019 Orders Historic [place] GENERIC DEFAULT Provider, MD Ori Social History [...] Name Priority Date/Time Associated Diagnosis Comments CARDIAC HOLTER MONITOR ORDER 08/01/2019 documented in this encounter Results * CARDIAC HOLTER MONITOR ORDER (08/01/2019) Narrative 08/01/2019 Ordered by an unspecified provider. us Historical Provider CARDIAC SERVICES ORDERABL ES Final Result documented in this encounter Visit Diagnoses Not on filedocumented in this encounter Additional Health Concerns Infection Onset Date Last Indicated Resolved Time COVID-19 Under Investigation 09/16/2022 09/16/2022 09/16/2022 9:26 PM PORTABLE TRACK LINE MARKER documented as of this encounter Care Teams Booster Pump Operator Relationship Specialty Start Date End Date Luzma Borjas MD [address] [place] [address] PCP - General 06/09/19 10/02/19 Bethany Hyman APNP-CNP [address] [place] [address] PCP - General Nurse Practitioner Family 10/03/19 10/23/19 Bethany Hyman APNP-CNP [address] [place] [address] PCP - General Nurse Practitioner Family 01/25/20 05/27/20 Cheryl Tariq APNP-CNP [address] [place] [address] PCP - General Nurse Practitioner Occupational Health 05/28/20 05/16/22 Cheryl Tariq APNP-CNP [address] [facility] [place] [address] PCP - Attributed-[facility] Commercial GFDL 08/27/20 01/09/22 Cheryl Tariq APNP-CNP [address] [facility] [place] [address] PCP - Attributed-[facility] Commercial GFDL 05/27/21 03/13/23 Lary Delvalle DO [address] [facility] [place] [address] PCP - General Family Medicine 05/17/22 documented as of this encounter
--- OUTSIDE RECORDS SUMMARY | 2025-04-05 19:17 | XMS_ITS | Encounter Summary ---
Author Organization [facility] Address [address] [place] [address] Care Team Providers Care Motion Graphics Designer Name Role Phone Lary Delvalle DO Primary Care Provider [phone] Marco Antonio Figueroa MD Unavailable Russ Gaitan DPM Unavailable [phone] Baldev Bell MD Unavailable [phone] Liz Hernandez DC Unavailable [phone] Pcp, Verify Primary Care Provider Unavailabl e Lary Delvalle DO Primary Care Provider [phone] Nicolasa Hackett PA-C Unavailable [phone] Destiney Adam DO Unavailable [phone] Encounter Details Date Type Department Care Team (Late st Contact Info) Description 12/01/2022 E-[facility] [address] [place] [address] [place] [address] [place], [place] [id number] Ozempic Social History Tobacco Use Types Packs/Day Years Used Date Smoking Tobacco: Never Smokeless Tobacco: Never Alcohol Use Standard Drinks/Week Comments Yes 0 (1 standard drink = 0.6 oz pur e alcohol) PHQ-2 Answer Date Recorded Initial depression screening score: 0 08/28/2022 Inadequate Housing Answer Date Recorded Social Determinants: Housing (Overall Score Help er) 0 12/03/2021 Comments No Sex and Gender Information Value [...] No 06/12/2022 11:47 AM Bethany Morrison RN documented as of this encounter Miscellaneous Notes * Telephone Encounter - Joanie Flores CMA - 12/01/2022 11:15 AM CDTFrom: Kim Haley To: Lary Delvalle Sent: 12/01/2022 10:09 AM CDT Subject: Ozempic Will a new prescription for the 1 mg ozempic be sent to [facility]? The 0.5 mg ozempic prescription with refills has disappeared at [facility]. Thank you! Sorry! documented in this encounter Plan of Treatment Upcoming Encounters Date Type Department Care Team (Late st Contact Info) Description 04/10/2025 8:15 AM CDT Lab Services ACL Lab - [address] [place] [address] [place] [phone] 04/11/2025 11:20 AM CDT Office Visit Primary Care [facility] - Family Medicine [address] [place] [address] [place] [address] [place] [address] 07/13/2025 2:45 PM MEDICAL TECHNICIAN Office Visit [facility] [address] [place] [phone] Jack Schuler DO [address] [place] [address] documented as of this encounter Visit Diagnoses Not on filedocumented in this encounter Additional Health Concerns Infection Onset Date Last Indicated Resolved Time COVID/Flu/RSV (rule out) 10/28/2024 10/28/202410/2024 11:29 PM CDT COVID/Flu/RSV (rule out) 12/14/2024 12/14/2024 6:05 PM CDT C. difficile (rule out) 01/22/2025 01/23/202512/27 3:43 PM CDT Assessment Noted Time PHQ-9 Depression Total Score: 4 08/28/19 23 8:53 AM MEDICAL TECHNICIAN A Body Mass Index follow-up plan has been documented for the patient 12/01/2022 9:13 AM CDT documented as of this encounter Care Teams Motion Graphics Designer Relationship Specialty Start Date End Date Lary Delvalle DO [address] [place], [place] [address], [place] [address] PCP - General Family Practice 04/22/22 08/21/24 PcpEdwin PCP - General 08/22/24 09/05/24 Lary Delvalle DO [address] [place] [address] PCP - General Family Practice 09/06/24 Marco Antonio Figueroa MD [address] [place] [address] Referring Provider Neurology 04/22/22 Russ Gaitan DPM [address] [place] [address] Referring Provider Podiatry - Foot & Ankle Surgery 04/22/22 [place] [address] [place] [address] Referring Provider Orthopaedic Surgery- Adult Reconstructive Orthopaedic Surgery 04/22/22 [place] [address] [place] [address] Chiropractic 04/22/22 Nicolasa Hackett PA-C [facility] [id number] [place] [address] Referring Provider Physician Telecom Manager - Surgery 11/14/24 Destiney Adam DO [address] [facility] [place] [address] Orthopedic Surgery 11/14/24 documented as of this encounter
--- OUTSIDE RECORDS SUMMARY | 2025-04-05 19:17 | XMS_ITS | Encounter Summary ---
Author Organization [facility] Address [address] [place] [address] Care Team Providers Care Sales Promotion Director Name Role Phone Marco Antonio Figueroa MD Unavailable Russ Gaitan DPM Unavailable [phone] Baldev Bell MD Unavailable [phone] Liz Hernandez DC Unavailable [phone] Lary Delvalle DO Primary Care Provider [phone] Nicolasa Hackett PA-C Unavailable [phone] Destiney Adam DO Unavailable [phone] Encounter Details Date Type Department Care Team (Latest Contact Info) Description 04/02/2025 Travel Social History Tobacco Use Types Packs/Day Years Used Date Smoking Tobacco: Never Passive Smoke Exposure: Never Smokeless Tobacco: Never Alcohol Use Standard Drinks/Week Comments Not Currently 0 (1 standard drink = 0.6 oz pur e alcohol) [facility] Utilities Answer Date Recorded In the [...] phone, visiting friends or family, going to sikh or club meetings) 5 or more times [...] of Assessment Author No 06/12/2022 11:47 AM WAREHOUSE DISTRIBUTION MANAGER Barlas, Bethany C, RN * Do you have serious difficulty [...] Services ACL Lab - [address] [place] [address] [place] [address] 04/11/2025 11:20 AM CDT Office Visit Primary Care Virtual - Family Medicine [address] [place] [phone] [place] [address] [place] [address] 07/13/2025 2:45 PM WAREHOUSE DISTRIBUTION MANAGER Office Visit [facility] [address] [place] [phone] Jack Schuler DO [address] [place] [address] documented as of this encounter Visit Diagnoses Not on filedocumented in this encounter Additional Health Concerns Assessment Noted Time PHQ-9 Depression Total Score: 13 025 5:37 PM CDT A Body Mass Index follow-up plan has been documented for the patient 06/17/2023 10:39 AM WAREHOUSE DISTRIBUTION MANAGER documented as of this encounter Care Teams Sales Promotion Director Relationship Specialty Start Date End Date Lary Delvalle DO [address] [facility] [place] [address] PCP - General Family Practice 09/06/24 Marco Antonio Figueroa MD [address] [place] [address] Referring Provider Neurology 04/22/22 Russ Gaitan DPM [address] [place] [address] Referring Provider Podiatry - Foot & Ankle Surgery 04/22/22 [place] [address] [place] [address] Referring Provider Orthopaedic Surgery- Adult Reconstructive Orthopaedic Surgery 04/22/22 [place] [address] [place], [place] [phone] Chiropractic 04/22/22 Nicolasa Hackett PA-C [facility] S[address] [place] [address] Referring Provider Physician Escalator Attendant - Surgery 11/14/24 Destiney Adam DO [address] [place] [address] Orthopedic Surgery 11/14/24 documented as of this encounter
--- OUTSIDE RECORDS SUMMARY | 2025-04-05 19:17 | XMS_ITS | Encounter Summary ---
Author Organization [facility] Address [address] [place] [address] Care Team Providers Care Dice Person Name Role Phone Marco Antonio Figueroa MD Unavailable Russ Gaitan DPM Unavailable [phone] Baldev Bell MD Unavailable [phone] Liz Hernandez DC Unavailable [phone] Lary Delvalle DO Primary Care Provider [phone] Nicolasa Hackett PA-C Unavailable Destiney Adam DO Unavailable [phone] Encounter Details Date Type Department Care Team (Late st Contact Info) Description 03/04/2025 Results Follow-Up Primary Care [facility] - Family Medicine [address] [place] [address] [place] [address] [place] [address] Social History Tobacco Use Types Packs/Day Years Used Date Smoking Tobacco: Never Passive Smoke Exposure: Never Smokeless Tobacco: Never Alcohol Use Standard Drinks/Week Comments Not Currently 0 (1 standard drink = 0.6 oz pur e alcohol) [facility] Utilities Answer Date Recorded In the past 12 months has e [employer], gas, oil, or water [employer] threatened to shut off services in your home? No 12/14/2024 PHQ-2 Answer Date Recorded Initial depression screening score: 3 12/27/2024 Social Connections Answer Date Recorded How often do you see or talk to people that you care about and feel close to? (For example: talking to friends on the phone, visiting friends or family, going to hinduism or club meetings) 5 or more times [...] Susan Gutierrez RN documented in this encounter Ordered Prescriptions Prescription Sig Dispense Quantity Refills Last Filled Start Date End Date fluconazole (DIFLUCAN) 150 MG tabletIndications: Vaginal yeast infection One pill today and one in 3 days if needed. #2 2 tablet 03/04/2025 cephalexin 500 MG tablet Take 1 tablet by mouth in the morning and 1 tablet in the evening. Do all this for 7 days. 14 tablet 03/04/2025 documented in this encounter Miscellaneous Notes * Telephone Encounter - Galina Conde MD - 03/04/2025 9:07 PM CDT Keflex antibiotics for UTI faxed and diflucan for possible yeast too. follow up with PCP if not improving. * Telephone Encounter - Adele Espinoza RN - 03/04/2025 8:24 PM CDT Please see response from patient. Yes, I have been experiencing frequent urination and it???s been waking me up at night and some burning sensation. But I also have been experiencing symptoms of a yeast infection. Very itchy and the OTC options aren???t helping. documented in this encounter Plan of Treatment Upcoming Encounters Date Type Department Care Team (Late st Contact Info) Description 04/10/2025 8:15 AM CDT Lab Services ACL Lab - [address] [place] [address] [place] [address] 04/11/2025 11:20 AM CDT Office Visit Primary Care [facility] - Family Medicine [address] [place] [phone] [place] [address] [place], [place] [phone] 07/13/2025 2:45 PM CHEESE WRAPPER Office Visit [facility] [place] [address] [place] [phone] Jack Schuler DO [address] [place] [address] documented as of this encounter Visit Diagnoses Diagnosis Vaginal yeast infection Candidiasis of vulva and vagina documented in this encounter Discontinued Medications Medication Sig Discontinue Reason Start Date End Da te fluconazole (DIFLUCAN) 150 MG tabletIndications:Vaginal yeast infection One pill today and one in 3 days. #2 Reorder 01/09/2025 03/04/2025 documented as of this encounter Additional Health Concerns Assessment Noted Time PHQ-9 Depression Total Score: 13 025 5:37 PM CDT A Body Mass Index follow-up plan has been documented for the patient 06/17/2023 10:39 AM CHEESE WRAPPER documented as of this encounter Care Teams Dice Person Relationship Specialty Start Date End Date Lary Delvalle DO [address] [place] [address] PCP - General Family Practice 09/06/24 Marco Antonio Figueroa MD [address] [place] [address] Referring Provider Neurology 04/22/22 Russ Gaitan DPM [address] [place] [address] Referring Provider Podiatry - Foot & Ankle Surgery 04/22/22 [place] [address] [place] [address] Referring Provider Orthopaedic Surgery- Adult Reconstructive Orthopaedic Surgery 04/22/22 [place] [address] [place] [address] Chiropractic 04/22/22 Nicolasa Hackett PA-C [facility] L[address] [place] [address] Referring Provider Physician Casket Liner - Surgery 11/14/24 Destiney Adam DO [address] [facility] [address] Orthopedic Surgery 11/14/24 documented as of this encounter
--- OUTSIDE RECORDS SUMMARY | 2025-04-05 19:17 | XMS_ITS | Encounter Summary ---
Author Organization [facility] Address [address] [facility] [place] [address] Care Team Providers Care Product Safety Professional Name Role Phone Luzma Borjas MD Primary Care Provider [phone] Bethany Hyman APNP-COTTON TIER Primary Care Provide r Bethany Hyman APNP-COTTON TIER Primary Care Provide r Cheryl Tariq APNP-COTTON TIER Primary Care Provider [phone] Cheryl Tariq APNP-COTTON TIER Unavailable [phone] Cheryl Tariq APNP-COTTON TIER Unavailable [phone] Lary Delvalle DO Primary Care Provider [phone] Encounter Details Date Type Department Care Team (Late st Contact Info) Description 08/26/2019 Orders Historic [place] GENERIC DEFAULT Provider, MD Ori Social History [...] Name Priority Date/Time Associated Diagnosis Comments CARDIAC ECHOCARDIOGRAM COMPLETE ORDER 08/26/2019 documented in this encounter Results * CARDIAC ECHOCARDIOGRAM COMPLETE ORDER (08/26/2019) Narrative 08/26/2019 Ordered by an unspecified provider. us Historical Provider ECHO ORDERABLES Final Res ult documented in this encounter Visit Diagnoses Not on filedocumented in this encounter Additional Health Concerns Infection Onset Date Last Indicated Resolved Time COVID-19 Under Investigation 09/16/2022 09/16/2022 09/16/2022 9:26 PM HANDKERCHIEF CUTTER documented as of this encounter Care Teams Product Safety Professional Relationship Specialty Start Date End Date Luzma Borjas MD [address] [place] [address] PCP - General 06/09/19 10/02/19 Bethany Hyamn APNP-CNP [address] [place] [address] PCP - General Nurse Practitioner Family 10/03/19 10/23/19 Bethany Hyman APNP-CNP [address] [place] [address] PCP - General Nurse Practitioner Family 01/25/20 05/27/20 Cheryl Tariq APNP-CNP [address] [place] [address] PCP - General Nurse Practitioner Occupational Health 05/28/20 05/16/22 Cheryl Tariq APNP-CNP [address] [facility] [place] [address] PCP - Attributed-[facility] Commercial GFDL 08/27/20 01/09/22 Cheryl Tariq APNP-CNP [address] [facility] [place] [address] PCP - Attributed-[place] Commercial GFDL 05/27/21 03/13/23 Lary Delvalle DO [address] [place] [address] PCP - General Family Medicine 05/17/22 documented as of this encounter
--- OUTSIDE RECORDS SUMMARY | 2025-04-05 19:17 | XMS_ITS | Encounter Summary ---
Author Organization [facility] Address [address] [place] [address] Care Team Providers Care Mri Special Procedures Technologist Name Role Phone Marco Antonio Figueroa MD Unavailable Russ Gaitan DPM Unavailable [phone] Baldev Bell MD Unavailable [phone] Liz Hernandez DC Unavailable [phone] Lary Delvalle DO Primary Care Provider [phone] Nicolasa Hackett PA-C Unavailable [phone] Destiney Adam DO Unavailable [phone] Reason for Visit * Reason Comments Refill Request Encounter Details Date Type Department Care Team (Late st Contact Info) Description 03/20/2025 Refill [facility] [address] [facility] [place] [id number] [place] [address] [place], [place] [id number] Refill Request Social History Tobacco Use Types Packs/Day Years Used Date Smoking Tobacco: Never Passive Smoke Exposure: Never Smokeless Tobacco: Never Alcohol Use Standard Drinks/Week Comments Not Currently 0 (1 standard drink = 0.6 oz pur e alcohol) [facility] Utilities Answer Date Recorded In the past 12 months has th e electric, gas, oil, or water [employer] threatened to shut off services in your home? No 12/14/2024 PHQ-2 Answer Date Recorded Initial depression screening score: 3 12/27/2024 Social Connections Answer Date Recorded How often do you see or talk to people that you care about and feel close to? (For example: talking to friends on the phone, visiting friends or family, going to restorationist or club meetings) 5 or more times [...] harm? Never 01/22/2025 How often does anyone, hmianshu lieberman family and friends, scream or curse [...] of Assessment Author No 06/12/2022 11:47 AM Btehany Morrison RN * Do you have serious [...] Refills Last Filled Start Date End Date empagliflozin (Jardiance) 10 MG tablet Take 1 tablet by mouth daily (before breakfast). 90 tablet 3 03/25/2025 1:10 PM CDT 03/21/2025 documented in this encounter Miscellaneous Notes * Telephone Encounter - Joanie Flores CMA - 03/21/2025 10:03 AM CDT Medication passed protocol. Medication: jardiance 10mg passed protocol. Last office visit date: 12/29/24 Next appointment scheduled?: Yes documented in this encounter Plan of Treatment Upcoming Encounters Date Type Department Care Team (Late st Contact Info) Description 04/10/2025 8:15 AM CDT [facility] [place] [address] [place] [address] [place] [address] 04/11/2025 11:20 AM CDT Office Visit [facility] - Family Medicine [address] [place] [id number] [place] [address] [place] [address] 07/13/2025 2:45 PM CASTING CLEANER Office Visit [facility] [place] [address] [place] [phone] Jack Schuler DO [address] [place] [address] documented as of this encounter Visit Diagnoses Not on filedocumented in this encounter Discontinued Medications Medication Sig Discontinue Reason Start Date End Da te empagliflozin (Jardiance) 10 MG tablet Take 1 tablet by mouth daily (before breakfast). Reorder 09/01/2024 03/20/2025 documented as of this encounter Additional Health Concerns Assessment Noted Time PHQ-9 Depression Total Score: 13 025 5:37 PM CDT A Body Mass Index follow-up plan has been documented for the patient 06/17/2023 10:39 AM CASTING CLEANER documented as of this encounter Care Teams Mri Special Procedures Technologist Relationship Specialty Start Date End Date Lary Delvalle DO [address] [place] [address] PCP - General Family Practice 09/06/24 Marco Antonio Figueroa MD [address] [place] [address] Referring Provider Neurology 04/22/22 Russ Gaitan DPM [address] [place] [address] Referring Provider Podiatry - Foot & Ankle Surgery 04/22/22 [place] [address] [place] [address] Referring Provider Orthopaedic Surgery- Adult Reconstructive Orthopaedic Surgery 04/22/22 [place] [address] [place] [address] Chiropractic 04/22/22 Nicolasa Hackett PA-C [id number] [place] [address] Referring Provider Physician Extractor Operator - Surgery 11/14/24 Destiney Adam DO [address] [facility] [place] [address] Orthopedic Surgery 11/14/24 documented as of this encounter
--- OUTSIDE RECORDS SUMMARY | 2025-04-05 19:17 | XMS_ITS | Encounter Summary ---
Author Organization [facility] Address [address] [place] [address] Care Team Providers Care Vault Teller Name Role Phone Lary Delvalle DO Primary Care Provider [phone] Marco Antonio Figueroa MD Unavailable Russ Gaitan DPM Unavailable [phone] Baldev Bell MD Unavailable [phone] Liz Hernandez DC Unavailable [phone] Pcp, Verify Primary Care Provider Unavailabl e Lary Delvalle DO Primary Care Provider [phone] Nicolasa Hackett PA-C Unavailable [phone] Destiney Adam DO Unavailable [phone] Encounter Details Date Type Department Care Team (Late st Contact Info) Description 09/02/2022 E-Advice [facility] [place] [address] [place] [address] Mychart, Patient Portal supplement recommendations Social History Tobacco Use Types Packs/Day Years [...] Author No 06/12/2022 11:47 AM Bethany Morrison, RN * RETIRED Are you blind or do you have serious difficulty seeing, even when wearing glasses? Answer Date of Assessment Author No 06/12/2022 11:47 AM Bethany Morrison RN documented as of this encounter Plan of Treatment Upcoming Encounters Date Type Department Care Team (Late st Contact Info) Description 04/10/2025 8:15 AM CDT [facility] [place] [address] [place] [address] [place] [address] 04/11/2025 11:20 AM CDT Office Visit Primary Care [facility] - Family Medicine [address] [place] [phone] [place] [address] [place], [place] [id number] 07/13/2025 2:45 PM DIESEL POWERPLANT MECHANIC HELPER Office Visit [facility] [place] [address] [facility] [place] [phone] Jack Schuler DO [address] [facility] [place] [place] [address] documented as of this encounter Visit Diagnoses Not on filedocumented in this encounter Additional Health Concerns Infection Onset Date Last Indicated Resolved Time Gastrointestinal Illness (rule out) 11/13/202211/1311/13/2022 10:06 PM CDT COVID/Flu/RSV (rule out) 10/28/2024 10/28/202410/2024 11:29 PM CDT COVID/Flu/RSV (rule out) 12/14/2024 12/14/2024 6:05 PM CDT C. difficile (rule out) 01/22/2025 01/23/202512/27 3:43 PM CDT Assessment Noted Time PHQ-9 Depression Total Score: 4 08/28/19 23 8:53 AM DIESEL POWERPLANT MECHANIC HELPER A Body Mass Index follow-up plan has been documented for the patient 08/28/2022 9:42 AM DIESEL POWERPLANT MECHANIC HELPER documented as of this encounter Care Teams Vault Teller Relationship Specialty Start Date End Date Lary Delvalle DO [address] [place] [address] PCP - General Family Practice 04/22/22 08/21/24 Pcp, Verify PCP - General 08/22/24 09/05/24 Lary Delvalle DO [address] [place] [address] PCP - General Family Practice 09/06/24 Marco Antonio Figueroa MD [address] [place] [address] Referring Provider Neurology 04/22/22 Russ Gaitan DPM [address] [place] [address] Referring Provider Podiatry - Foot & Ankle Surgery 04/22/22 [place] [address] [place] [address] Referring Provider Orthopaedic Surgery- Adult Reconstructive Orthopaedic Surgery 04/22/22 [place] [address] [place] [address] Chiropractic 04/22/22 Nicolasa Hackett PA-C [id number] [place] [address] Referring Provider Physician Senior Energy Market Coordinator - Surgery 11/14/24 Destiney Adam DO [address] [facility] [place] [place] [address] Orthopedic Surgery 11/14/24 documented as of this encounter
== END 2025-04-05 20:16 | disposition home or self-care (01) ==
LOC: ED 19:14
PROVIDERS: Emergency Provider Family Medicine
DX: R20.0 Anesthesia of skin (principal)
CPT/HCPCS: 99281; 99284

== ENCOUNTER 2025-04-19 18:46 | Outpatient (CLI) | payer OTHER, SELFPAY ==
--- NOTE | 2025-04-19 19:00 | MR_ITS ---
[address] [address] Phone:?[phone] Fax:?[phone] Referring Physician Information: Linda Benavidez [address] [facility] [address] Phone:?[phone] Fax:?[phone] Patient:Marianna Haley D.O.B:?1980 Sex:?Female Phone:?[phone] [facility] MRN:?[id number] Exam Date:?04/19/2025 EXAM: MRI OF THE RIGHT KNEE CLINICAL INFORMATION: The patient is a 44-year-old with right knee pain. Evaluate for hamstrings insertion injury. Evaluate for capsular sprain. Evaluate peroneal nerve. PRIOR SURGERY: None reported. COMPARISON STUDIES: Comparison is made to prior radiographs dated 04/07/2025. TECHNICAL INFORMATION: Imaging was performed on a high-field, 1.5 Bridget MR scanner. Axial proton-density and fat-suppressed T2 imaging of the right knee was performed in addition to sagittal proton-density and fat-suppressed proton- density imaging. Coronal proton-density and coronal STIR imaging was produced. FINDINGS: Articular/Extraarticular collections: Effusion: Mild. Popliteal cyst: Small, seen on sagittal series 7 image 22. Loose bodies: No well-defined intra-articular loose bodies are noted. Subcutaneous and extraarticular soft tissues: Nonspecific subcutaneous soft tissue edema and/or hemorrhage can be seen circumferentially about the knee on axial series 4 image 14. Osseous structures: No evidence for marrow edema or cortical injury. No evidence for fracture or stress injury. No evidence for destructive bony lesion. Ligamentous structures: ACL: Intact and normal in appearance. PCL: Intact and normal in appearance. MCL: Intact and normal in appearance. LCL: Intact and normal in appearance. Posterolateral corner: Intact and normal in appearance. No injuries to the distal biceps femoris can be seen. Posteromedial corner: No posteromedial corner soft tissue injury. Semimembranosus and pes anserine tendons demonstrate no tendinopathy or associated bursitis. Extensor mechanism/Patellar retinacular structures: Patellar tendon: Intact, without tendinopathy. Quadriceps tendon: Intact, without tendinopathy. Retinacula: The medial and lateral retinacula are intact. The medial patellofemoral ligament is intact. Medial compartment: Medial meniscus: No evidence for medial meniscal tearing can be seen. There is no evidence for parameniscal cyst formation. No meniscocapsular separation injury is identified. Medial femoral condyle: No chondromalacia, chondral defect, or osteochondral abnormality. Medial tibial plateau: No chondromalacia, chondral defect, or osteochondral abnormality. Lateral compartment: Lateral meniscus: No evidence for lateral meniscal tearing is present. No evidence for parameniscal cyst formation can be seen. Lateral femoral condyle: No chondromalacia, chondral defect, or osteochondral abnormality. Lateral tibial plateau: No chondromalacia, chondral defect, or osteochondral abnormality. Patellofemoral compartment: Patella: No chondromalacia, chondral defect, or osteochondral abnormality. Trochlea: No chondromalacia, chondral defect, or osteochondral abnormality. Neurovascular: No definite neurovascular abnormalities are seen. No abnormalities can be seen in the region of the peroneal nerve. CONCLUSION: 1. No definite evidence for well-defined medial or lateral meniscal tearing can be seen. 2. No chondral injuries along the articular surfaces of the right knee are present. 3. The cruciate and collateral ligaments appear intact. 4. No injuries to the distal hamstrings insertions can be seen. 5. No abnormalities can be seen in the region of the peroneal nerve. 6. No well-defined capsular injury is noted. A[facility] Electronically signed on 04/20/2025 8:05:00 AM by Johnathan Jasso M.D.
== END 2025-04-19 18:47 | disposition home or self-care (01) ==
LOC: MRI 18:47
PROVIDERS: Visit Provider Physician Assistant Surgical
DX: M25.561 Pain in right knee (principal); R20.0 Anesthesia of skin; R20.2 Paresthesia of skin
CPT/HCPCS: 73721